=== PATIENT | male | born 1950 | race Caucasian/White ===

== ENCOUNTER 2017-07-30 14:58 | Inpatient (IN) | payer MEDICARE, OTHER ==
[2017-07-30 14:58] VITALS: BMI 23.3
[2017-07-30] MEDS ORDERED: Albuterol-Ipratrop 3 mg / 0.5 (3 ml) UD INH STA (17:47)
[2017-07-30] MEDS ORDERED: Albuterol-Ipratrop 3 mg / 0.5 (3 ml) UD ONE (17:52)
[2017-07-30 17:54] LABS: BASO # 0.1 K/uL (0.0-0.2); BASO % 0.4 % (0.0-2.0); EOS % 0.1 % (0.0-4.0); LYMPH # 1.4 K/uL (1.0-4.3); MEAN CORPUSCULAR HEMOGLOBIN 27.4 pg (27.0-31.0); MEAN CORPUSCULAR HGB CONC 33.2 g/dL (33.0-37.0); MEAN PLATELET VOLUME 11.7 fL (7.2-11.7); MONO # 1.6 K/uL (0.0-0.8); MONO % 8.2 % (0.0-10.0); NEUT # 16.7 K/uL (1.8-7.0); NEUT % 84.3 % (50.0-75.0); PLATELET COUNT 149 K/uL (130-400); RBC 3.34 Mil/uL (4.40-5.90); RED CELL DISTRIBUTION WIDTH 14.2 % (11.5-14.5)
--- NOTE | 2017-07-30 17:55 | C.PDOC ---
History Of Present Illness 66 y/o male with PMHx of HTN, DM and HLD presents to ED with complaints of cough for 2 weeks and sob for 2 days. Patient also complaints of testicular pain and tenderness. Patient reports he saw PMD who advised he come to ED for evaluation. Patient is speaking in full sentences and denies fever, chills, nausea, vomiting, dysuria or any other complaints at this time. Time Seen by Provider: 07/30/17 17:07 Chief Complaint (Nursing): Shortness Of Breath History Per: Patient History/Exam Limitations: no limitations Onset/Duration Of Symptoms: Days Current Symptoms Are (Timing): Still Present Past Medical History Reviewed: Historical Data, Nursing Documentation, Vital Signs Vital Signs: Last Vital Signs Temp 100.4 F H 07/31/17 15:18 Pulse 81 07/31/17 15:30 Resp 20 07/31/17 15:18 BP 158/59 H 07/31/17 15:18 Pulse Ox 100 07/31/17 17:20 - Medical History PMH: Fractures (RIGHT ARM CHILDHOOD), HTN, Hypercholesterolemia, Peripheral Edema, Chronic Kidney Disease (BORDERLINE) Surgical History: CABG, Coronary Stent (2003), Endoscopy - [facility] Procedures ANGIOPLASTY OF OTHER NON-CORONARY VESSEL(S) (06/09/13) CONTRAST AORTOGRAM (09/10/14) CONTRAST ARTERIOGRAM-LEG (09/10/14) HETEROGRAFT TO SKIN (05/23/07) LOC EXC BONE LESION NEC (05/23/07) PROCEDURE ON SINGLE VESSEL (06/09/13) PROCEDURE ON VESSEL BIFURCATION (06/09/13) Family History: States: No Known Family Hx - Social History Hx Alcohol Use: No Hx Substance Use: No - Immunization History Hx Tetanus Toxoid Vaccination: No Hx Influenza Vaccination: Yes Hx Pneumococcal Vaccination: Yes Review Of Systems Constitutional: Negative for: Fever, Chills Cardiovascular: Negative for: Chest Pain Respiratory: Positive for: Cough, Shortness of Breath Gastrointestinal: Negative for: Nausea, Vomiting Genitourinary: Positive for: Other (Testicular pain). Negative for: Dysuria, Hematuria Skin: Negative for: Rash Neurological: Negative for: Weakness, Numbness Physical Exam - Physical Exam Appears: Non-toxic, No Acute Distress Skin: Normal Color, Warm, Dry, No Rash Head: Atraumatic, Normacephalic Oral Mucosa: Moist Throat: Normal, No Erythema, No Exudate Neck: Supple Cardiovascular: Rhythm Regular Respiratory: Decreased Breath Sounds, No Rales, No Rhonchi, Wheezing (Mild scattered bilaterally) Gastrointestinal/Abdominal: Soft, No Tenderness, No Guarding, No Rebound Extremity: Normal ROM, Capillary Refill (<2 seconds) Neurological/Psych: Oriented x3 ED Course And Treatment - Laboratory Results Result Diagrams: 07/30/17 17:47 07/30/17 17:47 O2 Sat by Pulse Oximetry: 100 (RA) Pulse Ox Interpretation: Normal Medical Decision Making Medical Decision Making: r/o chf, pneumonia, torsion/epididymtitis, -labs imaging penidng Progress: Discussed with Dr fritz who stated patient not candidate for ICU admission dr gonzalez, bedside on itial arrival. requests admission Disposition - Disposition Disposition: HOSPITALIZED Disposition Time: 07:00 Condition: FAIR - Clinical Impression Clinical Impression: CHF (congestive heart failure), Hyponatremia, Epididymitis - Scribe Statement The provider has reviewed the documentation as recorded by the Thoribgalen Garcia All medical record entries made by the Thoribgalen were at my direction and personally dictated by me. I have reviewed the chart and agree that the record accurately reflects my personal performance of the history, physical exam, medical decision making, and the department course for this patient. I have also personally directed, reviewed, and agree with the discharge instructions and disposition. Decision To Admit - Pt Status Changed To: Hospital Disposition Of: Inpatient - Admit Certification Admit to Inpatient:: After my assessment, the patient will require hospitalization for at least two midnights. This is because of the severity of symptoms shown, intensity of services needed, and/or the medical risk in this patient being treated as an outpatient. - InPatient: Physician Admission Certification: I certify that this patient requires 2 or more midnights of care for the following reason:: pt with hyponatremia, needs iv diuresis, and lasix. - . Bed Request Type: Telemetry Admitting Physician: Jose Gonzalez Patient Diagnosis: CHF (congestive heart failure), Hyponatremia, Epididymitis
[2017-07-30 17:57] LABS: HEMOGLOBIN 9.2 g/dL (12.0-18.0); MEAN CELL VOLUME 82.7 fL (80.0-94.0); WHITE BLOOD COUNT 19.8 K/uL (4.8-10.8)
[2017-07-30 18:04] LABS: INR 1.3; PROTHROMBIN TIME 14.2 SECONDS (9.7-12.2)
[2017-07-30] MEDS ORDERED: Piperacillin/Tazobact 3.375 gm 100 ML IVPB STA (18:06)
[2017-07-30 18:11] LABS: ALBUMIN 3.4 g/dL (3.5-5.0); CALCIUM 7.9 mg/dl (8.6-10.4)
[2017-07-30 18:16] LABS: LYMPHOCYTE 7 % (20-40); TOTAL CELLS COUNTED 100
[2017-07-30 18:17] LABS: ANISOCYTOSIS SLIGHT; HYPOCHROMIC SLIGHT; MONOCYTE 11 % (0-10); NEUTROPHIL 82 % (50-75); PLATELET ESTIMATE NORMAL (NORMAL); POIKILOCYTOSIS SLIGHT; TROPONIN I 0.064 ng/mL (0.00-0.120)
[2017-07-30 18:18] LABS: LARGE PLATELETS PRESENT
--- NOTE | 2017-07-30 18:39 | RAD ---
EXAM: XR Chest, 1 View EXAM DATE/TIME: Exam ordered 07/30/2017 5:24 PM CLINICAL HISTORY: 66 years old, male; Signs and symptoms; Hyperventilation and wheezing; Additional info: Chest pain, difficulty breathing TECHNIQUE: Frontal view of the chest. COMPARISON: CR - CHEST TWO VIEWS (PA/LAT) 2015-08-15 08:34 FINDINGS: Lungs: Coarse linear opacity at the right lung base suggests atelectasis. Thin linear opacities are noted in the left mid and lower lung field. Pleural space: There is blunting right lateral costophrenic angle. No pneumothorax. Heart: Unremarkable. No cardiomegaly. Mediastinum: Surgical clips project over the hilar structures bilaterally. Bones/joints: There has been a median sternotomy. Upper abdomen: There is elevation of the right hemidiaphragm. Other findings: External monitoring devices are present. IMPRESSION: Right basilar subsegmental atelectasis/pneumonitis with small right pleural effusion/pleural thickening. 2. Scarring in the left lung base
[2017-07-30] MEDS ORDERED: Vancomycin 1 GM in Sodium Chloride 0.9% 200 ML IVPB STA (18:48)
--- NOTE | 2017-07-30 19:10 | US ---
EXAM: US Scrotum EXAM DATE/TIME: Exam ordered 07/30/2017 5:24 PM CLINICAL HISTORY: 66 years old, male; Pain; Scrotum pain; Additional info: Testicular pain TECHNIQUE: Real-time ultrasound of the scrotum with color Doppler and image documentation. COMPARISON: No relevant prior studies available. FINDINGS: Right testicle: The right testicle measures 3.3 x 2 by 2.4 cm. The echotexture is homogeneous without evidence of mass. There is a small complex right hydrocele. No torsion. Left testicle: The left testicle measures 3 x 2.2 x 2.4 cm. No torsion. Epididymides: The epididymal head measures 1.3 x 1.2 x 0.6 cm.. There are 2 simple cysts. They measure 3 mm and 4 millimeters respectively in maximal diameter. The epididymal tail is enlarged measuring 1.9 x 2.3 x 2 cm and hypervascular. There is a septated cyst or 2 adjacent simple cysts within the tail of the epididymis with combined measurements of 1.1 x 0.6 x 0.9 cm. The left epididymal head measures 1.5 x 0.7 x 1.3 cm and contains a 3 mm simple cyst. The left epididymal tear measures 1.6 x 1.3 x 2 cm. it is hypervascular in nature. Scrotum: On the left there is a moderate complex hydrocele. Free fluid: There is a symmetric blood flow to both testes. No free fluid. The There are small varicoceles bilaterally IMPRESSION: 1. Bilateral epididymitis 2. Benign epididymal cysts or spermatoceles noted within the epididymal heads bilaterally. 3. Bilateral complex hydroceles, small on the right and moderate size on the left 4. There are small varicoceles bilaterally
[2017-07-30 22:44] LABS: URINE BACTERIA RARE (<OCC); URINE BILIRUBIN NEGATIVE (NEGATIVE); URINE BLOOD 1+ (NEGATIVE); URINE CLARITY Hazy (Clear); URINE COLOR Yellow (YELLOW); URINE GLUCOSE (UA) NORMAL (Normal); URINE LEUKOCYTE ESTERASE 3+ Leu/uL (Negative); URINE NITRATE NEGATIVE (NEGATIVE); URINE PROTEIN 1+ mg/dL (NEGATIVE); URINE UROBILINOGEN NORMAL mg/dL (0.2-1.0)
[2017-07-30] MEDS: Piperacill/Tazo 2.25gm in Dex 2.25 GM/50 ML BAG IVPB SCH (23:59)
[2017-07-31] MEDS: Albuterol-Ipratrop 3 mg / 0.5 (3 ml) UD INH SCH ×4 (02:20→20:14)
[2017-07-31] MEDS ORDERED: (Novolin R) Insulin Human Regular 100 units/ml vial SC ONE (02:39)
[2017-07-31] MEDS: Piperacill/Tazo 2.25gm in Dex 2.25 GM/50 ML BAG IVPB SCH ×3 (05:25→17:00)
[2017-07-31] MEDS ORDERED: (Novolog) Insulin Aspart, Recombinant 100 u/ml 10 ml vial SC SCH ×3 (07:30→10:00)
[2017-07-31] MEDS: (Novolog) Insulin Aspart, Recombinant 100 u/ml 10 ml vial SC SCH ×5 (09:19→22:16)
[2017-07-31] MEDS: Pantoprazole 40 mg EC Tab PO SCH (09:22)
[2017-07-31] MEDS: Vitamin B Complex/Vitamin C Tab PO SCH (09:22)
[2017-07-31] MEDS: Tolvaptan 15 MG TAB PO SCH (09:30)
[2017-07-31] MEDS ORDERED: Enoxaparin 40 mg Syringe SC SCH (10:00)
--- NOTE | 2017-07-31 19:25 | CP.PCM.HP ---
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 - HEENT Hx HEENT Problems: Yes Hx Blind: Yes (RIGHT EYE) Hx Deafness: Yes (RIGHT EAR) - RENAL Hx Chronic Kidney Disease: Yes (BORDERLINE) - ENDOCRINE/METABOLIC Hx Diabetes Mellitus Type 2: Yes - HEMATOLOGICAL/ONCOLOGICAL Hx Blood Disorders: No Hx Blood Transfusions: (MAYBE) - INTEGUMENTARY Hx Dermatological Problems: Yes Other/Comment: ULCERS LEFT FOOT HEEL - MUSCULOSKELETAL/RHEUMATOLOGICAL Hx Fractures: Yes (RIGHT ARM CHILDHOOD) - GASTROINTESTINAL Hx Gastrointestinal Disorders: Yes Hx Gastroesophageal Reflux: Yes - GENITOURINARY/GYNECOLOGICAL Hx Genitourinary Disorders: No - PSYCHIATRIC Hx Substance Use: No - SURGICAL HISTORY Hx Coronary Artery Bypass Graft: Yes Hx Coronary Stent: Yes (2003) - ANESTHESIA Hx Anesthesia: Yes Hx Anesthesia Reactions: No Hx Malignant Hyperthermia: No Meds Allergies/Adverse Reactions: Allergies Allergy/AdvReac Type Severity Reaction Status Date / Time No Known Allergies Allergy Verified 08/11/15 09:42 Physical Exam - Constitutional Appears: Well - Head Exam Head Exam: ATRAUMATIC, NORMAL INSPECTION, NORMOCEPHALIC - Eye Exam Eye Exam: EOMI, Normal appearance, PERRL Pupil Exam: NORMAL ACCOMODATION, PERRL - ENT Exam ENT Exam: Mucous Membranes Moist, Normal Exam - Neck Exam Neck exam: Positive for: Normal Inspection - Respiratory Exam Respiratory Exam: Decreased Breath Sounds - Cardiovascular Exam Cardiovascular Exam: REGULAR RHYTHM, +S1, +S2 - GI/Abdominal Exam GI & Abdominal Exam: Diminished Bowel Sounds, Soft - Rectal Exam Rectal Exam: Deferred Results - Vital Signs Recent Vital Signs: Last Vital Signs Temp 100.4 F H 07/31/17 15:18 Pulse 81 07/31/17 15:30 Resp 20 07/31/17 15:18 BP 158/59 H 07/31/17 15:18 Pulse Ox 100 07/31/17 17:55 - Labs Result Diagrams: 07/30/17 17:47 07/30/17 17:47 Labs: Laboratory Results - last 24 hr 07/30/17 07/30/17 07/30/17 19:48 20:56 22:31 POC Glucose (mg/dL) 280 H 310 H Serum Osmolality Urine Color Yellow Urine Clarity Hazy Urine pH 5.0 Ur Specific [place] 1.011 Urine Protein 1+ H Urine Glucose (UA) Normal Urine Ketones Negative Urine Blood 1+ H Urine Nitrate Negative Urine Bilirubin Negative Urine Urobilinogen Normal Ur Leukocyte Esterase 3+ H Urine WBC (Auto) 694 H Urine RBC (Auto) 12 H Urine Bacteria Rare 07/31/17 07/31/17 07/31/17 02:35 06:54 11:23 POC Glucose (mg/dL) 433 H* 353 H 351 H Serum Osmolality Urine Color Urine Clarity Urine pH Ur Specific [place] Urine Protein Urine Glucose (UA) Urine Ketones Urine Blood Urine Nitrate Urine Bilirubin Urine Urobilinogen Ur Leukocyte Esterase Urine WBC (Auto) Urine RBC (Auto) Urine Bacteria 07/31/17 07/31/17 11:41 16:35 POC Glucose (mg/dL) 314 H Serum Osmolality 309 H Urine Color Urine Clarity Urine pH Ur Specific [place] Urine Protein Urine Glucose (UA) Urine Ketones Urine Blood Urine Nitrate Urine Bilirubin Urine Urobilinogen Ur Leukocyte Esterase Urine WBC (Auto) Urine RBC (Auto) Urine Bacteria
[2017-07-31] MEDS: Insulin Detemir 100 units/ml Vial (Levemir) SC SCH (22:15)
[2017-08-01] MEDS: Piperacill/Tazo 2.25gm in Dex 2.25 GM/50 ML BAG IVPB SCH ×4 (00:10→17:27)
[2017-08-01] MEDS: Albuterol-Ipratrop 3 mg / 0.5 (3 ml) UD INH SCH ×4 (01:47→19:29)
[2017-08-01 07:30] LABS: BASO % 0.3 % (0.0-2.0); EOS % 0.3 % (0.0-4.0); HEMOGLOBIN 8.7 g/dL (12.0-18.0); LYMPH # 1.1 K/uL (1.0-4.3); LYMPH % 6.8 % (20.0-40.0); MEAN CELL VOLUME 82.4 fL (80.0-94.0); MEAN CORPUSCULAR HEMOGLOBIN 27.4 pg (27.0-31.0); MEAN CORPUSCULAR HGB CONC 33.2 g/dL (33.0-37.0); MEAN PLATELET VOLUME 11.6 fL (7.2-11.7); MONO # 1.2 K/uL (0.0-0.8); MONO % 7.5 % (0.0-10.0); NEUT # 13.3 K/uL (1.8-7.0); NEUT % 85.1 % (50.0-75.0); PLATELET COUNT 182 K/uL (130-400); RBC 3.17 Mil/uL (4.40-5.90); RED CELL DISTRIBUTION WIDTH 14.3 % (11.5-14.5); WHITE BLOOD COUNT 15.6 K/uL (4.8-10.8)
[2017-08-01 07:53] LABS: ALB/GLOB RATIO 0.9 (1.0-2.1); ALBUMIN 2.9 g/dL (3.5-5.0); CALCIUM 7.6 mg/dl (8.6-10.4)
[2017-08-01] MEDS: (Novolog) Insulin Aspart, Recombinant 100 u/ml 10 ml vial SC SCH ×4 (08:29→21:22)
[2017-08-01 08:46] LABS: ANISOCYTOSIS SLIGHT; HYPOCHROMIC SLIGHT; LYMPHOCYTE 8 % (20-40); MONOCYTE 7 % (0-10); NEUTROPHIL 85 % (50-75); PLATELET ESTIMATE NORMAL (NORMAL); POIKILOCYTOSIS SLIGHT; TOTAL CELLS COUNTED 100
[2017-08-01 08:47] LABS: LARGE PLATELETS PRESENT; OVALOCYTES SLIGHT; TARGET CELLS SLIGHT; TEARDROP CELLS SLIGHT
[2017-08-01] MEDS: Pantoprazole 40 mg EC Tab PO SCH (09:53)
[2017-08-01] MEDS: Vitamin B Complex/Vitamin C Tab PO SCH (09:54)
[2017-08-01] MEDS: Tolvaptan 15 MG TAB PO SCH (09:54)
[2017-08-01] MEDS ORDERED: Pneumococcal 23-Valent Vaccine IM ONE (10:00)
[2017-08-01 13:39] LABS: URINE 24 HOUR SODIUM 14.9 mmol/L (40-220)
[2017-08-01 17:21] LABS: CALCIUM 7.6 mg/dl (8.6-10.4)
--- NOTE | 2017-08-01 19:21 | CP.PCM.PN ---
Subjective - Date & Time of Evaluation Date of Evaluation: 08/01/17 Time of Evaluation: 12:20 - Subjective Subjective: clinically same Objective - Vital Signs/Intake and Output Vital Signs (last 24 hours): Temp Pulse Resp BP Pulse Ox 99.1 F 69 20 154/62 H 96 08/01/17 16:00 08/01/17 16:00 08/01/17 16:00 08/01/17 16:00 08/01/17 16:00 Intake and Output: 08/01/17 08/02/17 18:59 06:59 Intake Total 50 Balance 50 - Medications Medications: Current Medications Albuterol/Ipratropium (Duoneb 3 Mg/0.5 Mg (3 Ml) Ud) 3 ml INH RQ6 [facility] Last Admin: 08/01/17 13:44 Dose: 3 ml Amlodipine Besylate (Norvasc) 10 mg PO DAILY [facility] Last Admin: 08/01/17 09:54 Dose: 10 mg Carvedilol (Coreg) 6.25 mg PO BID [facility] Last Admin: 08/01/17 17:26 Dose: 6.25 mg Clopidogrel Bisulfate (Plavix) 75 mg PO DAILY [facility] Last Admin: 08/01/17 09:54 Dose: 75 mg Folic Acid (Folic Acid) 1 mg PO DAILY [facility] Last Admin: 08/01/17 09:54 Dose: 1 mg Heparin Sodium (Porcine) (Heparin) 5,000 units SC Q12 [facility] Last Admin: 08/01/17 10:11 Dose: 5,000 units Hydralazine HCl (Apresoline) 10 mg PO TID [facility] Last Admin: 08/01/17 17:25 Dose: 10 mg Hydroxyzine HCl (Atarax) 25 mg PO DAILY [facility] Last Admin: 08/01/17 09:54 Dose: 25 mg Piperacillin Sod/Tazobactam Sod (Zosyn 2.25 Gm Iv Premix) 2.25 gm in 50 mls @ 100 mls/hr IVPB Q6H [facility] Last Admin: 08/01/17 17:27 Dose: 100 mls/hr Insulin Aspart (Novolog) 0 unit SC ACHS [facility] PRN Reason: Protocol Last Admin: 08/01/17 17:26 Dose: 6 unit Insulin Detemir (Levemir) 35 unit SC HS [facility] Last Admin: 07/31/17 22:15 Dose: 35 unit Losartan Potassium (Cozaar) 25 mg PO DAILY [facility] Last Admin: 08/01/17 12:28 Dose: 25 mg Pantoprazole Sodium (Protonix Ec Tab) 40 mg PO DAILY [facility] Last Admin: 08/01/17 09:53 Dose: 40 mg Pregabalin (Lyrica) 50 mg PO BID [facility] Last Admin: 08/01/17 17:26 Dose: 50 mg Rosuvastatin Calcium (Crestor) 40 mg PO HS [facility] Last Admin: 07/31/17 22:17 Dose: 40 mg Tolvaptan (Samsca) 15 mg PO DAILY [facility] Last Admin: 08/01/17 09:54 Dose: 15 mg Vitamin B Complex/Vitamin C (Berocca) 1 tab PO DAILY [facility] Last Admin: 08/01/17 09:54 Dose: 1 tab - Labs Labs: 07/31/17 07:16 08/01/17 16:53 PT 14.2 SECONDS (9.7-12.2) H 07/30/17 17:47 INR 1.3 07/30/17 17:47 APTT 33 SECONDS (21-34) 07/30/17 17:47
[2017-08-01] MEDS: Insulin Detemir 100 units/ml Vial (Levemir) SC SCH (21:21)
[2017-08-02] MEDS: Piperacill/Tazo 2.25gm in Dex 2.25 GM/50 ML BAG IVPB SCH ×4 (00:03→18:52)
[2017-08-02] MEDS: Albuterol-Ipratrop 3 mg / 0.5 (3 ml) UD INH SCH ×4 (02:20→22:37)
--- NOTE | 2017-08-02 07:01 | CARD ---
APPROVED REPORT EKG Measurement Heart [id number] <Conclusion> Normal sinus rhythm Normal ECG
[2017-08-02 07:26] LABS: BASO % 0.3 % (0.0-2.0); EOS # 0.3 K/uL (0.0-0.7); EOS % 2.3 % (0.0-4.0); HEMOGLOBIN 9.3 g/dL (12.0-18.0); LYMPH # 1.5 K/uL (1.0-4.3); LYMPH % 9.8 % (20.0-40.0); MEAN CELL VOLUME 83.4 fL (80.0-94.0); MEAN CORPUSCULAR HEMOGLOBIN 28.1 pg (27.0-31.0); MEAN CORPUSCULAR HGB CONC 33.7 g/dL (33.0-37.0); MEAN PLATELET VOLUME 11.4 fL (7.2-11.7); MONO % 6.4 % (0.0-10.0); NEUT # 12.4 K/uL (1.8-7.0); NEUT % 81.2 % (50.0-75.0); PLATELET COUNT 234 K/uL (130-400); RBC 3.29 Mil/uL (4.40-5.90); RED CELL DISTRIBUTION WIDTH 14.3 % (11.5-14.5); WHITE BLOOD COUNT 15.2 K/uL (4.8-10.8)
[2017-08-02] MEDS: (Novolog) Insulin Aspart, Recombinant 100 u/ml 10 ml vial SC SCH ×4 (08:07→22:51)
[2017-08-02 08:34] LABS: CALCIUM 8.2 mg/dl (8.6-10.4)
[2017-08-02 08:55] LABS: EOSINOPHIL 3 % (0-4); LYMPHOCYTE 10 % (20-40); MONOCYTE 6 % (0-10); NEUTROPHIL 81 % (50-75); PLATELET ESTIMATE NORMAL (NORMAL); TOTAL CELLS COUNTED 100
[2017-08-02 08:56] LABS: ANISOCYTOSIS SLIGHT; HYPOCHROMIC SLIGHT; LARGE PLATELETS PRESENT; POIKILOCYTOSIS SLIGHT; POLYCHROMIC SLIGHT
[2017-08-02] MEDS: Vitamin B Complex/Vitamin C Tab PO SCH (09:19)
[2017-08-02] MEDS: Tolvaptan 15 MG TAB PO SCH (09:20)
[2017-08-02] MEDS: Pantoprazole 40 mg EC Tab PO SCH (09:20)
--- NOTE | 2017-08-02 14:09 | CP.PCM.CON ---
<Marissa Barron - Last Filed: 08/02/17 14:05> History of Present Illness - History of Present Illness History of Present Illness: 66 year old male patient with PMHx of HTN, DM and HLD was seen at bedside this morning with attending Dr. Moralez after request for podiatry consultation concerning Chronic Left heel decubitus ulceration. Patient is well known to Dr. Moralez. Patient states that he had this ulceration for a few years and it is not acute. Patient admits to mild pain on palpation to Left heel upon palpation but no pain when resting. Patient was advised to wear multipodus boots at all time in bed. 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 - HEENT Hx HEENT Problems: Yes Hx Blind: Yes (RIGHT EYE) Hx Deafness: Yes (RIGHT EAR) - RENAL Hx Chronic Kidney Disease: Yes (BORDERLINE) - ENDOCRINE/METABOLIC Hx Diabetes Mellitus Type 2: Yes - HEMATOLOGICAL/ONCOLOGICAL Hx Blood Disorders: No Hx Blood Transfusions: (MAYBE) - INTEGUMENTARY Hx Dermatological Problems: Yes Other/Comment: ULCERS LEFT FOOT HEEL - MUSCULOSKELETAL/RHEUMATOLOGICAL Hx Fractures: Yes (RIGHT ARM CHILDHOOD) - GASTROINTESTINAL Hx Gastrointestinal Disorders: Yes Hx Gastroesophageal Reflux: Yes - GENITOURINARY/GYNECOLOGICAL Hx Genitourinary Disorders: No - PSYCHIATRIC Hx Substance Use: No - SURGICAL HISTORY Hx Coronary Artery Bypass Graft: Yes Hx Coronary Stent: Yes (2003) - ANESTHESIA Hx Anesthesia: Yes Hx Anesthesia Reactions: No Hx Malignant Hyperthermia: No Meds Allergies/Adverse Reactions: Allergies Allergy/AdvReac Type Severity Reaction Status Date / Time No Known Allergies Allergy Verified 08/11/15 09:42 - Medications Medications: Current Medications Albuterol/Ipratropium (Duoneb 3 Mg/0.5 Mg (3 Ml) Ud) 3 ml INH RQ6 [facility] Last Admin: 08/02/17 13:06 Dose: 3 ml Amlodipine Besylate (Norvasc) 10 mg PO DAILY [facility] Last Admin: 08/02/17 09:20 Dose: 10 mg Carvedilol (Coreg) 6.25 mg PO BID [facility] Last Admin: 08/02/17 09:20 Dose: 6.25 mg Clopidogrel Bisulfate (Plavix) 75 mg PO DAILY [facility] Last Admin: 08/02/17 09:19 Dose: 75 mg Folic Acid (Folic Acid) 1 mg PO DAILY [facility] Last Admin: 08/02/17 09:20 Dose: 1 mg Heparin Sodium (Porcine) (Heparin) 5,000 units SC Q12 [facility] Last Admin: 08/02/17 09:21 Dose: 5,000 units Hydralazine HCl (Apresoline) 10 mg PO TID [facility] Last Admin: 08/02/17 13:49 Dose: 10 mg Hydroxyzine HCl (Atarax) 25 mg PO DAILY [facility] Last Admin: 08/02/17 09:21 Dose: 25 mg Piperacillin Sod/Tazobactam Sod (Zosyn 2.25 Gm Iv Premix) 2.25 gm in 50 mls @ 100 mls/hr IVPB Q6H [facility] Last Admin: 08/02/17 12:34 Dose: 100 mls/hr Insulin Aspart (Novolog) 0 unit SC [facility] PRN Reason: Protocol Last Admin: 08/02/17 12:06 Dose: 2 unit Insulin Detemir (Levemir) 35 unit SC HS [facility] Last Admin: 08/01/17 21:21 Dose: 35 unit Losartan Potassium (Cozaar) 25 mg PO DAILY [facility] Last Admin: 08/02/17 09:20 Dose: 25 mg Pantoprazole Sodium (Protonix Ec Tab) 40 mg PO DAILY [facility] Last Admin: 08/02/17 09:20 Dose: 40 mg Pregabalin (Lyrica) 50 mg PO BID [facility] Last Admin: 08/02/17 09:20 Dose: 50 mg Rosuvastatin Calcium (Crestor) 40 mg PO HS [facility] Last Admin: 08/01/17 21:21 Dose: 40 mg Tolvaptan (Samsca) 15 mg PO DAILY [facility] Last Admin: 08/02/17 09:20 Dose: 15 mg Vitamin B Complex/Vitamin C (Berocca) 1 tab PO DAILY [facility] Last Admin: 08/02/17 09:19 Dose: 1 tab Physical Exam - Constitutional Appears: Well, Non-toxic, No Acute Distress - Head Exam Head Exam: ATRAUMATIC - Extremities Exam Additional comments: Left lower extremity exam (RIGHT BKA) DERM: No open wound is noted. Pre-ulcerative lesion noted to Left heel consistent with decubitus ulceration noted measuring 4cm x 4cm. No drainage is noted. No mal-odor noted. No PTB, No sign of acute infection noted VASC: Non-palpable DP and PT noted. [employer] less than 3 seconds to all digits ORTHO: Mild pain induced upon palpation to Left heel. Decreased Active / Passive ROM to joints distal to ankle NEURO: Gross sensation intact; [place] Jessica Monofilament multifocal exam plantarly - Neurological Exam Neurological exam: Alert, Oriented x3 - Psychiatric Exam Psychiatric exam: Normal Affect, Normal Mood - Skin Skin Exam: Normal Color, Warm Results - Vital Signs Recent Vital Signs: Last Vital Signs Temp 98.4 F 08/02/17 07:00 Pulse 73 08/02/17 07:00 Resp 20 08/02/17 07:00 BP 145/56 L 08/02/17 07:00 Pulse Ox 100 08/02/17 07:00 - Labs Result Diagrams: 08/02/17 07:13 08/02/17 07:13 Labs: Laboratory Results - last 24 hr 08/01/17 08/01/17 08/01/17 13:04 16:53 16:56 WBC RBC Hgb Hct MCV MCH MCHC RDW Plt Count MPV Neut % (Auto) Lymph % (Auto) Leon % (Auto) Eos % (Auto) Baso % (Auto) Neut # Lymph # Leon # Eos # Baso # Neutrophils % (Manual) Lymphocytes % (Manual) Monocytes % (Manual) Eosinophils % (Manual) Platelet Estimate Large Platelets Polychromasia Hypochromasia (manual) Poikilocytosis (manual Anisocytosis (manual) Sodium 123 L Potassium 4.7 Chloride 96 L Carbon Dioxide 19 L Anion Gap 13 BUN 85 H Creatinine 2.7 H Est GFR ( Amer) 29 Est GFR (Non-Af Amer) 24 POC Glucose (mg/dL) 271 H Random Glucose 245 H Hemoglobin A1c Calcium 7.6 L Urine Osmolality 347 Ur Sodium 24 Hour 14.9 L 08/01/17 08/02/17 08/02/17 21:03 02:33 06:42 WBC RBC Hgb Hct MCV MCH MCHC RDW Plt Count MPV Neut % (Auto) Lymph % (Auto) Leon % (Auto) Eos % (Auto) Baso % (Auto) Neut # Lymph # Leon # Eos # Baso # Neutrophils % (Manual) Lymphocytes % (Manual) Monocytes % (Manual) Eosinophils % (Manual) Platelet Estimate Large Platelets Polychromasia Hypochromasia (manual) Poikilocytosis (manual Anisocytosis (manual) Sodium Potassium Chloride Carbon Dioxide Anion Gap BUN Creatinine Est GFR ( Amer) Est GFR (Non-Af Amer) POC Glucose (mg/dL) 309 H 283 H 169 H Random Glucose Hemoglobin A1c Calcium Urine Osmolality Ur Sodium 24 Hour 08/02/17 08/02/17 08/02/17 07:13 07:13 07:13 WBC 15.2 H RBC 3.29 L Hgb 9.3 L Hct 27.4 L MCV 83.4 MCH 28.1 MCHC 33.7 RDW 14.3 Plt Count 234 MPV 11.4 Neut % (Auto) 81.2 H Lymph % (Auto) 9.8 L Leon % (Auto) 6.4 Eos % (Auto) 2.3 Baso % (Auto) 0.3 Neut # 12.4 H Lymph # 1.5 Leon # 1.0 H Eos # 0.3 Baso # 0.0 Neutrophils % (Manual) 81 H Lymphocytes % (Manual) 10 L Monocytes % (Manual) 6 Eosinophils % (Manual) 3 Platelet Estimate Normal Large Platelets Present Polychromasia Slight Hypochromasia (manual) Slight Poikilocytosis (manual Slight Anisocytosis (manual) Slight Sodium 132 Potassium 4.5 Chloride 100 Carbon Dioxide 18 L Anion Gap 18 BUN 80 H Creatinine 2.8 H Est GFR ( Amer) 27 Est GFR (Non-Af Amer) 23 POC Glucose (mg/dL) Random Glucose 159 H Hemoglobin A1c 10.7 H Calcium 8.2 L Urine Osmolality Ur Sodium 24 Hour 08/02/17 11:35 WBC RBC Hgb Hct MCV MCH MCHC RDW Plt Count MPV Neut % (Auto) Lymph % (Auto) Leon % (Auto) Eos % (Auto) Baso % (Auto) Neut # Lymph # Leon # Eos # Baso # Neutrophils % (Manual) Lymphocytes % (Manual) Monocytes % (Manual) Eosinophils % (Manual) Platelet Estimate Large Platelets Polychromasia Hypochromasia (manual) Poikilocytosis (manual Anisocytosis (manual) Sodium Potassium Chloride Carbon Dioxide Anion Gap BUN Creatinine Est GFR ( Amer) Est GFR (Non-Af Amer) POC Glucose (mg/dL) 186 H Random Glucose Hemoglobin A1c Calcium Urine Osmolality Ur Sodium 24 Hour Assessment & Plan - Assessment and Plan (Free Text) Assessment: 66 yo male patient presents with Left heel decubitus ulceration Plan: Patient was seen, evaluated by bedside with attending Dr. Moralez labs and vitals reviewed; afebrile Multipodus boots ordered Left foot to be dressed with ABD, cling, then multipodus boots Podiatry will continue to follow inhouse <Joel Moralez - Last Filed: 08/05/17 10:09> Meds - Medications Medications: Current Medications Amlodipine Besylate (Norvasc) 10 mg PO DAILY [facility] Last Admin: 08/04/17 10:08 Dose: 10 mg Carvedilol (Coreg) 6.25 mg PO BID [facility] Last Admin: 08/04/17 22:49 Dose: 6.25 mg Clopidogrel Bisulfate (Plavix) 75 mg PO DAILY [facility] Last Admin: 08/04/17 10:08 Dose: 75 mg Folic Acid (Folic Acid) 1 mg PO DAILY [facility] Last Admin: 08/04/17 10:08 Dose: 1 mg Heparin Sodium (Porcine) (Heparin) 5,000 units SC Q12 [facility] Last Admin: 08/04/17 22:26 Dose: 5,000 units Hydralazine HCl (Apresoline) 10 mg PO TID [facility] Last Admin: 08/04/17 17:47 Dose: 10 mg Hydroxyzine HCl (Atarax) 25 mg PO DAILY [facility] Last Admin: 08/04/17 10:08 Dose: 25 mg Piperacillin Sod/Tazobactam Sod (Zosyn 2.25 Gm Iv Premix) 2.25 gm in 50 mls @ 100 mls/hr IVPB Q6H [facility] Last Admin: 08/05/17 05:08 Dose: 100 mls/hr Insulin Aspart (Novolog) 0 unit SC ACHS [facility] PRN Reason: Protocol Last Admin: 08/05/17 08:44 Dose: 4 unit Insulin Detemir (Levemir) 35 unit SC HS [facility] Last Admin: 08/04/17 22:28 Dose: 35 unit Losartan Potassium (Cozaar) 25 mg PO DAILY [facility] Last Admin: 08/04/17 10:11 Dose: 25 mg Pantoprazole Sodium (Protonix Ec Tab) 40 mg PO DAILY [facility] Last Admin: 08/04/17 10:08 Dose: 40 mg Pregabalin (Lyrica) 50 mg PO BID [facility] Last Admin: 08/04/17 17:48 Dose: 50 mg Rosuvastatin Calcium (Crestor) 40 mg PO [facility] Last Admin: 08/04/17 22:24 Dose: 40 mg Vitamin B Complex/Vitamin C (Berocca) 1 tab PO DAILY [facility] Last Admin: 08/04/17 10:08 Dose: 1 tab Results - Vital Signs Recent Vital Signs: Last Vital Signs Temp 97.4 F L 08/05/17 09:07 Pulse 61 08/05/17 09:07 Resp 20 08/05/17 09:07 BP 149/65 08/05/17 09:07 Pulse Ox 100 08/05/17 09:07 - Labs Result Diagrams: 08/04/17 08:39 08/04/17 08:37 Labs: Laboratory Results - last 24 hr 08/04/17 08/04/17 08/04/17 12:26 16:56 22:13 POC Glucose (mg/dL) 240 H 256 H 258 H 08/05/17 06:27 POC Glucose (mg/dL) 221 H Attending/Attestation - Attestation I have personally seen and examined this patient.: Yes I have fully participated in the care of the patient.: Yes I have reviewed all pertinent clinical information: Yes Notes (Text): 08/05/17 10:09 Pt seen with resident for left heel stage 1 ulcer.
--- NOTE | 2017-08-02 16:27 | CP.PCM.PN ---
Subjective - Date & Time of Evaluation Date of Evaluation: 08/02/17 Time of Evaluation: 12:20 - Subjective Subjective: clinically same Objective - Vital Signs/Intake and Output Vital Signs (last 24 hours): Temp Pulse Resp BP Pulse Ox 98.4 F 73 20 145/56 L 100 08/02/17 07:00 08/02/17 07:00 08/02/17 07:00 08/02/17 07:00 08/02/17 07:00 Intake and Output: 08/02/17 08/02/17 06:59 18:59 Intake Total 220 Output Total 200 Balance 20 - Medications Medications: Current Medications Albuterol/Ipratropium (Duoneb 3 Mg/0.5 Mg (3 Ml) Ud) 3 ml INH RQ6 [facility] Last Admin: 08/02/17 13:06 Dose: 3 ml Amlodipine Besylate (Norvasc) 10 mg PO DAILY [facility] Last Admin: 08/02/17 09:20 Dose: 10 mg Carvedilol (Coreg) 6.25 mg PO BID [facility] Last Admin: 08/02/17 09:20 Dose: 6.25 mg Clopidogrel Bisulfate (Plavix) 75 mg PO DAILY [facility] Last Admin: 08/02/17 09:19 Dose: 75 mg Folic Acid (Folic Acid) 1 mg PO DAILY [facility] Last Admin: 08/02/17 09:20 Dose: 1 mg Heparin Sodium (Porcine) (Heparin) 5,000 units SC Q12 [facility] Last Admin: 08/02/17 09:21 Dose: 5,000 units Hydralazine HCl (Apresoline) 10 mg PO TID [facility] Last Admin: 08/02/17 13:49 Dose: 10 mg Hydroxyzine HCl (Atarax) 25 mg PO DAILY [facility] Last Admin: 08/02/17 09:21 Dose: 25 mg Piperacillin Sod/Tazobactam Sod (Zosyn 2.25 Gm Iv Premix) 2.25 gm in 50 mls @ 100 mls/hr IVPB Q6H [facility] Last Admin: 08/02/17 12:34 Dose: 100 mls/hr Insulin Aspart (Novolog) 0 unit SC ACHS [facility] PRN Reason: Protocol Last Admin: 08/02/17 12:06 Dose: 2 unit Insulin Detemir (Levemir) 35 unit SC HS [facility] Last Admin: 08/01/17 21:21 Dose: 35 unit Losartan Potassium (Cozaar) 25 mg PO DAILY [facility] Last Admin: 08/02/17 09:20 Dose: 25 mg Pantoprazole Sodium (Protonix Ec Tab) 40 mg PO DAILY [facility] Last Admin: 08/02/17 09:20 Dose: 40 mg Pregabalin (Lyrica) 50 mg PO BID [facility] Last Admin: 08/02/17 09:20 Dose: 50 mg Rosuvastatin Calcium (Crestor) 40 mg PO HS [facility] Last Admin: 08/01/17 21:21 Dose: 40 mg Tolvaptan (Samsca) 15 mg PO DAILY [facility] Last Admin: 08/02/17 09:20 Dose: 15 mg Vitamin B Complex/Vitamin C (Berocca) 1 tab PO DAILY [facility] Last Admin: 08/02/17 09:19 Dose: 1 tab - Labs Labs: 08/02/17 07:13 08/02/17 07:13 PT 14.2 SECONDS (9.7-12.2) H 07/30/17 17:47 INR 1.3 07/30/17 17:47 APTT 33 SECONDS (21-34) 07/30/17 17:47
[2017-08-02] MEDS: Insulin Detemir 100 units/ml Vial (Levemir) SC SCH (22:50)
[2017-08-03 01:36] VITALS: RESP 20
[2017-08-03] MEDS: Piperacill/Tazo 2.25gm in Dex 2.25 GM/50 ML BAG IVPB SCH ×5 (06:30→23:07)
[2017-08-03] MEDS: Albuterol-Ipratrop 3 mg / 0.5 (3 ml) UD INH SCH ×3 (07:40→19:35)
[2017-08-03] MEDS: (Novolog) Insulin Aspart, Recombinant 100 u/ml 10 ml vial SC SCH ×4 (08:16→21:21)
[2017-08-03] MEDS ORDERED: Tolvaptan 15 MG TAB PO SCH (10:00)
[2017-08-03] MEDS: Pantoprazole 40 mg EC Tab PO SCH (10:29)
[2017-08-03] MEDS: Vitamin B Complex/Vitamin C Tab PO SCH (10:29)
--- NOTE | 2017-08-03 13:18 | CP.PCM.PN ---
<Janis Sibley - Last Filed: 08/03/17 20:27> Subjective - Date & Time of Evaluation Date of Evaluation: 08/03/17 Time of Evaluation: 11:50 - Subjective Subjective: 66 year old diabetic male seen at bedside this morning for left heel decubitus ulceration. Patient denies any acute events overnight and denies any pain in the left foot. Multipodus boot not on at time of visit. Dressing is clean/dry/ intact. Objective - Vital Signs/Intake and Output Vital Signs (last 24 hours): Temp Pulse Resp BP Pulse Ox 98.8 F 68 20 136/65 96 08/03/17 09:26 08/03/17 09:26 08/03/17 09:26 08/03/17 09:26 08/03/17 09:26 Intake and Output: 08/03/17 08/03/17 06:59 18:59 Intake Total 300 100 Output Total 650 Balance -350 100 - Medications Medications: Current Medications Albuterol/Ipratropium (Duoneb 3 Mg/0.5 Mg (3 Ml) Ud) 3 ml INH RQ6 [facility] Last Admin: 08/02/17 22:37 Dose: Not Given Amlodipine Besylate (Norvasc) 10 mg PO DAILY [facility] Last Admin: 08/03/17 10:29 Dose: 10 mg Carvedilol (Coreg) 6.25 mg PO BID [facility] Last Admin: 08/03/17 10:29 Dose: 6.25 mg Clopidogrel Bisulfate (Plavix) 75 mg PO DAILY [facility] Last Admin: 08/03/17 10:29 Dose: 75 mg Folic Acid (Folic Acid) 1 mg PO DAILY [facility] Last Admin: 08/03/17 10:29 Dose: 1 mg Heparin Sodium (Porcine) (Heparin) 5,000 units SC Q12 [facility] Last Admin: 08/03/17 10:30 Dose: 5,000 units Hydralazine HCl (Apresoline) 10 mg PO TID [facility] Last Admin: 08/03/17 10:29 Dose: 10 mg Hydroxyzine HCl (Atarax) 25 mg PO DAILY [facility] Last Admin: 08/03/17 10:29 Dose: 25 mg Piperacillin Sod/Tazobactam Sod (Zosyn 2.25 Gm Iv Premix) 2.25 gm in 50 mls @ 100 mls/hr IVPB Q6H [facility] Last Admin: 08/03/17 06:30 Dose: 100 mls/hr Insulin Aspart (Novolog) 0 unit SC ACHS [facility] PRN Reason: Protocol Last Admin: 08/03/17 12:53 Dose: 4 unit Insulin Detemir (Levemir) 35 unit SC [facility] Last Admin: 08/02/17 22:50 Dose: 35 unit Losartan Potassium (Cozaar) 25 mg PO DAILY [facility] Last Admin: 08/03/17 10:29 Dose: 25 mg Pantoprazole Sodium (Protonix Ec Tab) 40 mg PO DAILY [facility] Last Admin: 08/03/17 10:29 Dose: 40 mg Pregabalin (Lyrica) 50 mg PO BID [facility] Last Admin: 08/03/17 10:29 Dose: 50 mg Rosuvastatin Calcium (Crestor) 40 mg PO [facility] Last Admin: 08/02/17 22:49 Dose: 40 mg Vitamin B Complex/Vitamin C (Berocca) 1 tab PO DAILY [facility] Last Admin: 08/03/17 10:29 Dose: 1 tab - Labs Labs: 08/02/17 07:13 08/02/17 07:13 PT 14.2 SECONDS (9.7-12.2) H 07/30/17 17:47 INR 1.3 07/30/17 17:47 APTT 33 SECONDS (21-34) 07/30/17 17:47 - Constitutional Appears: Well, Non-toxic, No Acute Distress - Extremities Exam Additional comments: Left lower extremity exam (RIGHT BKA) Vasc: Non-palpable DP and PT noted. CFT < 3 seconds to all digits Derm: No open wound is noted. Pre-ulcerative lesion noted to left heel consistent with decubitus ulceration noted measuring 4cm x 4cm. No drainage is noted. Skin is stable and non fissured or sloughed. No malodor noted. No PTB, No sign of acute infection noted Ortho: No pain noted on palpation or application of pressure to decubitus ulcer. Decreased active/passive ROM to joints distal to ankle Neuro: Gross sensation intact - Neurological Exam Neurological Exam: Alert, Awake, Oriented x3 Assessment and Plan - Assessment and Plan (Free Text) Assessment: 66 yo male diabetic patient with left heel decubitus ulceration Plan: Patient was seen, evaluated by bedside Discussed plan with attending Dr. Moralez Labs and vitals reviewed; afebrile Multipodus boot to remain on at all times in bed to left foot Left foot dressed with ABD, DSD, multipodus boot Podiatry will continue to follow patient while in house <Joel Moralez - Last Filed: 08/05/17 10:10> Objective - Vital Signs/Intake and Output Vital Signs (last 24 hours): Temp Pulse Resp BP Pulse Ox 97.4 F L 61 20 149/65 100 08/05/17 09:07 08/05/17 09:07 08/05/17 09:07 08/05/17 09:07 08/05/17 09:07 Intake and Output: 08/05/17 08/05/17 06:59 18:59 Intake Total 530 Output Total 400 Balance 130 - Medications Medications: Current Medications Amlodipine Besylate (Norvasc) 10 mg PO DAILY [facility] Last Admin: 08/04/17 10:08 Dose: 10 mg Carvedilol (Coreg) 6.25 mg PO BID [facility] Last Admin: 08/04/17 22:49 Dose: 6.25 mg Clopidogrel Bisulfate (Plavix) 75 mg PO DAILY [facility] Last Admin: 08/04/17 10:08 Dose: 75 mg Folic Acid (Folic Acid) 1 mg PO DAILY [facility] Last Admin: 08/04/17 10:08 Dose: 1 mg Heparin Sodium (Porcine) (Heparin) 5,000 units SC Q12 [facility] Last Admin: 08/04/17 22:26 Dose: 5,000 units Hydralazine HCl (Apresoline) 10 mg PO TID [facility] Last Admin: 08/04/17 17:47 Dose: 10 mg Hydroxyzine HCl (Atarax) 25 mg PO DAILY [facility] Last Admin: 08/04/17 10:08 Dose: 25 mg Piperacillin Sod/Tazobactam Sod (Zosyn 2.25 Gm Iv Premix) 2.25 gm in 50 mls @ 100 mls/hr IVPB Q6H [facility] Last Admin: 08/05/17 05:08 Dose: 100 mls/hr Insulin Aspart (Novolog) 0 unit SC ACHS [facility] PRN Reason: Protocol Last Admin: 08/05/17 08:44 Dose: 4 unit Insulin Detemir (Levemir) 35 unit SC HS [facility] Last Admin: 08/04/17 22:28 Dose: 35 unit Losartan Potassium (Cozaar) 25 mg PO DAILY [facility] Last Admin: 08/04/17 10:11 Dose: 25 mg Pantoprazole Sodium (Protonix Ec Tab) 40 mg PO DAILY [facility] Last Admin: 08/04/17 10:08 Dose: 40 mg Pregabalin (Lyrica) 50 mg PO BID [facility] Last Admin: 08/04/17 17:48 Dose: 50 mg Rosuvastatin Calcium (Crestor) 40 mg PO HS [facility] Last Admin: 08/04/17 22:24 Dose: 40 mg Vitamin B Complex/Vitamin C (Berocca) 1 tab PO DAILY [facility] Last Admin: 08/04/17 10:08 Dose: 1 tab - Labs Labs: 08/04/17 08:39 08/04/17 08:37 PT 14.2 SECONDS (9.7-12.2) H 07/30/17 17:47 INR 1.3 07/30/17 17:47 APTT 33 SECONDS (21-34) 07/30/17 17:47 Attending/Attestation - Attestation I have fully participated in the care of the patient.: Yes I have reviewed all pertinent clinical information, including history, physical exam and plan: Yes Notes (Text): 08/05/17 10:10 Stage 1 ulcer
--- NOTE | 2017-08-03 15:58 | CP.PCM.PN ---
Subjective - Date & Time of Evaluation Date of Evaluation: 08/03/17 Time of Evaluation: 12:00 - Subjective Subjective: clinically same Objective - Vital Signs/Intake and Output Vital Signs (last 24 hours): Temp Pulse Resp BP Pulse Ox 98.8 F 68 20 136/65 96 08/03/17 09:26 08/03/17 09:26 08/03/17 09:26 08/03/17 09:26 08/03/17 09:26 Intake and Output: 08/03/17 08/03/17 06:59 18:59 Intake Total 300 100 Output Total 650 Balance -350 100 - Medications Medications: Current Medications Albuterol/Ipratropium (Duoneb 3 Mg/0.5 Mg (3 Ml) Ud) 3 ml INH RQ6 [facility] Last Admin: 08/03/17 14:09 Dose: 3 ml Amlodipine Besylate (Norvasc) 10 mg PO DAILY [facility] Last Admin: 08/03/17 10:29 Dose: 10 mg Carvedilol (Coreg) 6.25 mg PO BID [facility] Last Admin: 08/03/17 10:29 Dose: 6.25 mg Clopidogrel Bisulfate (Plavix) 75 mg PO DAILY [facility] Last Admin: 08/03/17 10:29 Dose: 75 mg Folic Acid (Folic Acid) 1 mg PO DAILY [facility] Last Admin: 08/03/17 10:29 Dose: 1 mg Heparin Sodium (Porcine) (Heparin) 5,000 units SC Q12 [facility] Last Admin: 08/03/17 10:30 Dose: 5,000 units Hydralazine HCl (Apresoline) 10 mg PO TID [facility] Last Admin: 08/03/17 14:29 Dose: 10 mg Hydroxyzine HCl (Atarax) 25 mg PO DAILY [facility] Last Admin: 08/03/17 10:29 Dose: 25 mg Piperacillin Sod/Tazobactam Sod (Zosyn 2.25 Gm Iv Premix) 2.25 gm in 50 mls @ 100 mls/hr IVPB Q6H [facility] Last Admin: 08/03/17 14:29 Dose: 100 mls/hr Insulin Aspart (Novolog) 0 unit SC ACHS [facility] PRN Reason: Protocol Last Admin: 08/03/17 12:53 Dose: 4 unit Insulin Detemir (Levemir) 35 unit SC HS [facility] Last Admin: 08/02/17 22:50 Dose: 35 unit Losartan Potassium (Cozaar) 25 mg PO DAILY [facility] Last Admin: 08/03/17 10:29 Dose: 25 mg Pantoprazole Sodium (Protonix Ec Tab) 40 mg PO DAILY [facility] Last Admin: 08/03/17 10:29 Dose: 40 mg Pregabalin (Lyrica) 50 mg PO BID [facility] Last Admin: 08/03/17 10:29 Dose: 50 mg Rosuvastatin Calcium (Crestor) 40 mg PO HS [facility] Last Admin: 08/02/17 22:49 Dose: 40 mg Vitamin B Complex/Vitamin C (Berocca) 1 tab PO DAILY [facility] Last Admin: 08/03/17 10:29 Dose: 1 tab - Labs Labs: 08/02/17 07:13 08/02/17 07:13 PT 14.2 SECONDS (9.7-12.2) H 07/30/17 17:47 INR 1.3 07/30/17 17:47 APTT 33 SECONDS (21-34) 07/30/17 17:47
[2017-08-03] MEDS: Insulin Detemir 100 units/ml Vial (Levemir) SC SCH (21:42)
[2017-08-04] MEDS: Albuterol-Ipratrop 3 mg / 0.5 (3 ml) UD INH SCH ×4 (03:04→19:56)
[2017-08-04] MEDS: Piperacill/Tazo 2.25gm in Dex 2.25 GM/50 ML BAG IVPB SCH ×4 (06:30→23:53)
[2017-08-04 08:54] LABS: BASO % 0.4 % (0.0-2.0); EOS # 0.5 K/uL (0.0-0.7); EOS % 4.9 % (0.0-4.0); HEMOGLOBIN 8.7 g/dL (12.0-18.0); LYMPH # 1.3 K/uL (1.0-4.3); LYMPH % 13.1 % (20.0-40.0); MEAN CELL VOLUME 84.2 fL (80.0-94.0); MEAN CORPUSCULAR HGB CONC 33.2 g/dL (33.0-37.0); MONO # 0.8 K/uL (0.0-0.8); MONO % 7.6 % (0.0-10.0); NEUT # 7.4 K/uL (1.8-7.0); RBC 3.13 Mil/uL (4.40-5.90); RED CELL DISTRIBUTION WIDTH 14.7 % (11.5-14.5); WHITE BLOOD COUNT 9.9 K/uL (4.8-10.8)
[2017-08-04] MEDS: Vitamin B Complex/Vitamin C Tab PO SCH (10:08)
[2017-08-04] MEDS: Pantoprazole 40 mg EC Tab PO SCH (10:08)
[2017-08-04] MEDS: (Novolog) Insulin Aspart, Recombinant 100 u/ml 10 ml vial SC SCH ×4 (14:08→22:21)
--- NOTE | 2017-08-04 15:01 | CP.PCM.PN ---
<Janis Sibley - Last Filed: 08/04/17 15:02> Subjective - Date & Time of Evaluation Date of Evaluation: 08/04/17 Time of Evaluation: 14:59 - Subjective Subjective: 66 year old diabetic male seen at bedside this afternoon for left heel decubitus ulceration. Patient denies any acute events overnight and denies any pain in the left foot. Dressing is clean/dry/intact. Objective - Vital Signs/Intake and Output Vital Signs (last 24 hours): Temp Pulse Resp BP Pulse Ox 98.9 F 72 20 147/63 97 08/03/17 23:45 08/03/17 23:45 08/03/17 23:45 08/03/17 23:45 08/03/17 23:45 Intake and Output: 08/04/17 08/04/17 06:59 18:59 Intake Total 1040 Output Total 250 Balance 790 - Medications Medications: Current Medications Albuterol/Ipratropium (Duoneb 3 Mg/0.5 Mg (3 Ml) Ud) 3 ml INH RQ6 [facility] Last Admin: 08/04/17 13:36 Dose: 3 ml Amlodipine Besylate (Norvasc) 10 mg PO DAILY [facility] Last Admin: 08/04/17 10:08 Dose: 10 mg Carvedilol (Coreg) 6.25 mg PO BID [facility] Last Admin: 08/04/17 10:08 Dose: 6.25 mg Clopidogrel Bisulfate (Plavix) 75 mg PO DAILY [facility] Last Admin: 08/04/17 10:08 Dose: 75 mg Folic Acid (Folic Acid) 1 mg PO DAILY [facility] Last Admin: 08/04/17 10:08 Dose: 1 mg Hydralazine HCl (Apresoline) 10 mg PO TID [facility] Last Admin: 08/04/17 14:17 Dose: 10 mg Hydroxyzine HCl (Atarax) 25 mg PO DAILY [facility] Last Admin: 08/04/17 10:08 Dose: 25 mg Piperacillin Sod/Tazobactam Sod (Zosyn 2.25 Gm Iv Premix) 2.25 gm in 50 mls @ 100 mls/hr IVPB Q6H [facility] Last Admin: 08/04/17 12:13 Dose: 100 mls/hr Insulin Aspart (Novolog) 0 unit SC ACHS [facility] PRN Reason: Protocol Last Admin: 01/07/18 14:09 Dose: 2 unit Insulin Detemir (Levemir) 35 unit SC [facility] Last Admin: 08/03/17 21:42 Dose: 35 unit Losartan Potassium (Cozaar) 25 mg PO DAILY [facility] Last Admin: 08/04/17 10:11 Dose: 25 mg Pantoprazole Sodium (Protonix Ec Tab) 40 mg PO DAILY [facility] Last Admin: 08/04/17 10:08 Dose: 40 mg Pregabalin (Lyrica) 50 mg PO BID [facility] Last Admin: 08/04/17 10:08 Dose: 50 mg Rosuvastatin Calcium (Crestor) 40 mg PO HS [facility] Last Admin: 08/03/17 21:42 Dose: 40 mg Vitamin B Complex/Vitamin C (Berocca) 1 tab PO DAILY [facility] Last Admin: 08/04/17 10:08 Dose: 1 tab - Labs Labs: 08/04/17 08:39 08/04/17 08:37 PT 14.2 SECONDS (9.7-12.2) H 07/30/17 17:47 INR 1.3 07/30/17 17:47 APTT 33 SECONDS (21-34) 07/30/17 17:47 - Constitutional Appears: Well, Non-toxic, No Acute Distress - Extremities Exam Additional comments: Left lower extremity exam (RIGHT BKA) Vasc: Non-palpable DP and PT noted. CFT < 3 seconds to all digits Derm: No open wound is noted. Pre-ulcerative lesion noted to left heel consistent with decubitus ulceration noted measuring 4cm x 4cm. No drainage is noted. Skin is stable and non fissured or sloughed. No malodor noted. No PTB, No sign of acute infection noted Ortho: No pain noted on palpation or application of pressure to decubitus ulcer. Decreased active/passive ROM to joints distal to ankle Neuro: Gross sensation intact - Neurological Exam Neurological Exam: Alert, Awake, Oriented x3 Assessment and Plan - Assessment and Plan (Free Text) Assessment: Assessment: 66 yo male diabetic patient with left heel decubitus ulceration Plan: Patient was seen, evaluated by bedside Discussed plan with attending Dr. Moralez Labs and vitals reviewed; afebrile, WBC 9.9 Multipodus boot to remain on at all times in bed to left foot Left foot dressed with ABD, DSD, and multipodus boot reapplied Podiatry will continue to follow patient while in house <Joel Moralez - Last Filed: 08/05/17 10:11> Objective - Vital Signs/Intake and Output Vital Signs (last 24 hours): Temp Pulse Resp BP Pulse Ox 97.4 F L 61 20 149/65 100 08/05/17 09:07 08/05/17 09:07 08/05/17 09:07 08/05/17 09:07 08/05/17 09:07 Intake and Output: 08/05/17 08/05/17 06:59 18:59 Intake Total 530 Output Total 400 Balance 130 - Medications Medications: Current Medications Amlodipine Besylate (Norvasc) 10 mg PO DAILY [facility] Last Admin: 08/04/17 10:08 Dose: 10 mg Carvedilol (Coreg) 6.25 mg PO BID [facility] Last Admin: 08/04/17 22:49 Dose: 6.25 mg Clopidogrel Bisulfate (Plavix) 75 mg PO DAILY [facility] Last Admin: 08/04/17 10:08 Dose: 75 mg Folic Acid (Folic Acid) 1 mg PO DAILY [facility] Last Admin: 08/04/17 10:08 Dose: 1 mg Heparin Sodium (Porcine) (Heparin) 5,000 units SC Q12 [facility] Last Admin: 08/04/17 22:26 Dose: 5,000 units Hydralazine HCl (Apresoline) 10 mg PO TID [facility] Last Admin: 08/04/17 17:47 Dose: 10 mg Hydroxyzine HCl (Atarax) 25 mg PO DAILY [facility] Last Admin: 08/04/17 10:08 Dose: 25 mg Piperacillin Sod/Tazobactam Sod (Zosyn 2.25 Gm Iv Premix) 2.25 gm in 50 mls @ 100 mls/hr IVPB Q6H [facility] Last Admin: 08/05/17 05:08 Dose: 100 mls/hr Insulin Aspart (Novolog) 0 unit SC ACHS [facility] PRN Reason: Protocol Last Admin: 08/05/17 08:44 Dose: 4 unit Insulin Detemir (Levemir) 35 unit SC HS [facility] Last Admin: 08/04/17 22:28 Dose: 35 unit Losartan Potassium (Cozaar) 25 mg PO DAILY [facility] Last Admin: 08/04/17 10:11 Dose: 25 mg Pantoprazole Sodium (Protonix Ec Tab) 40 mg PO DAILY [facility] Last Admin: 08/04/17 10:08 Dose: 40 mg Pregabalin (Lyrica) 50 mg PO BID [facility] Last Admin: 08/04/17 17:48 Dose: 50 mg Rosuvastatin Calcium (Crestor) 40 mg PO HS [facility] Last Admin: 08/04/17 22:24 Dose: 40 mg Vitamin B Complex/Vitamin C (Berocca) 1 tab PO DAILY [facility] Last Admin: 08/04/17 10:08 Dose: 1 tab - Labs Labs: 08/04/17 08:39 08/04/17 08:37 PT 14.2 SECONDS (9.7-12.2) H 07/30/17 17:47 INR 1.3 07/30/17 17:47 APTT 33 SECONDS (21-34) 07/30/17 17:47 Attending/Attestation - Attestation I have fully participated in the care of the patient.: Yes I have reviewed all pertinent clinical information, including history, physical exam and plan: Yes Notes (Text): 08/05/17 10:11 Stage 1 ulcer
--- NOTE | 2017-08-04 20:31 | CP.PCM.PN ---
Subjective - Date & Time of Evaluation Date of Evaluation: 08/04/17 Time of Evaluation: 13:20 - Subjective Subjective: clincally same Objective - Vital Signs/Intake and Output Vital Signs (last 24 hours): Temp Pulse Resp BP Pulse Ox 98.9 F 72 20 147/63 97 08/03/17 23:45 08/03/17 23:45 08/03/17 23:45 08/03/17 23:45 08/03/17 23:45 - Medications Medications: Current Medications Albuterol/Ipratropium (Duoneb 3 Mg/0.5 Mg (3 Ml) Ud) 3 ml INH RQ6 [facility] Last Admin: 08/04/17 19:56 Dose: 3 ml Amlodipine Besylate (Norvasc) 10 mg PO DAILY [facility] Last Admin: 08/04/17 10:08 Dose: 10 mg Carvedilol (Coreg) 6.25 mg PO BID [facility] Last Admin: 08/04/17 10:08 Dose: 6.25 mg Clopidogrel Bisulfate (Plavix) 75 mg PO DAILY [facility] Last Admin: 08/04/17 10:08 Dose: 75 mg Folic Acid (Folic Acid) 1 mg PO DAILY [facility] Last Admin: 08/04/17 10:08 Dose: 1 mg Heparin Sodium (Porcine) (Heparin) 5,000 units SC Q12 [facility] Hydralazine HCl (Apresoline) 10 mg PO TID [facility] Last Admin: 08/04/17 17:47 Dose: 10 mg Hydroxyzine HCl (Atarax) 25 mg PO DAILY [facility] Last Admin: 08/04/17 10:08 Dose: 25 mg Piperacillin Sod/Tazobactam Sod (Zosyn 2.25 Gm Iv Premix) 2.25 gm in 50 mls @ 100 mls/hr IVPB Q6H [facility] Last Admin: 08/04/17 16:48 Dose: 100 mls/hr Insulin Aspart (Novolog) 0 unit SC ACHS [facility] PRN Reason: Protocol Last Admin: 08/04/17 17:30 Dose: 6 unit Insulin Detemir (Levemir) 35 unit SC HS [facility] Last Admin: 08/03/17 21:42 Dose: 35 unit Losartan Potassium (Cozaar) 25 mg PO DAILY [facility] Last Admin: 08/04/17 10:11 Dose: 25 mg Pantoprazole Sodium (Protonix Ec Tab) 40 mg PO DAILY [facility] Last Admin: 08/04/17 10:08 Dose: 40 mg Pregabalin (Lyrica) 50 mg PO BID [facility] Last Admin: 08/04/17 17:48 Dose: 50 mg Rosuvastatin Calcium (Crestor) 40 mg PO HS [facility] Last Admin: 08/03/17 21:42 Dose: 40 mg Vitamin B Complex/Vitamin C (Berocca) 1 tab PO DAILY [facility] Last Admin: 08/04/17 10:08 Dose: 1 tab - Labs Labs: 08/04/17 08:39 08/04/17 08:37 PT 14.2 SECONDS (9.7-12.2) H 07/30/17 17:47 INR 1.3 07/30/17 17:47 APTT 33 SECONDS (21-34) 07/30/17 17:47
[2017-08-04] MEDS: Insulin Detemir 100 units/ml Vial (Levemir) SC SCH (22:28)
[2017-08-05] MEDS: Albuterol-Ipratrop 3 mg / 0.5 (3 ml) UD INH SCH (02:30)
[2017-08-05] MEDS: Piperacill/Tazo 2.25gm in Dex 2.25 GM/50 ML BAG IVPB SCH (05:08)
[2017-08-05] MEDS: (Novolog) Insulin Aspart, Recombinant 100 u/ml 10 ml vial SC SCH ×2 (08:44→12:17)
[2017-08-05] MEDS: Pantoprazole 40 mg EC Tab PO SCH (10:20)
[2017-08-05] MEDS: Vitamin B Complex/Vitamin C Tab PO SCH (10:20)
--- NOTE | 2017-08-05 14:37 | CP.PCM.PN ---
Subjective - Date & Time of Evaluation Date of Evaluation: 08/05/17 Time of Evaluation: 11:40 - Subjective Subjective: Patient seen today , more alert, denies any chest pain, sob, dizziness, headache , N/V No overnigh t events reported by RN Objective - Vital Signs/Intake and Output Vital Signs (last 24 hours): Temp Pulse Resp BP Pulse Ox 97.4 F L 61 20 149/65 100 08/05/17 09:07 08/05/17 09:07 08/05/17 09:07 08/05/17 09:07 08/05/17 09:07 Intake and Output: 08/05/17 08/05/17 06:59 18:59 Intake Total 530 Output Total 400 Balance 130 - Medications Medications: Current Medications Amlodipine Besylate (Norvasc) 10 mg PO DAILY [facility] Last Admin: 08/05/17 10:20 Dose: 10 mg Carvedilol (Coreg) 6.25 mg PO BID [facility] Last Admin: 08/05/17 10:20 Dose: 6.25 mg Clopidogrel Bisulfate (Plavix) 75 mg PO DAILY [facility] Last Admin: 08/05/17 10:20 Dose: 75 mg Folic Acid (Folic Acid) 1 mg PO DAILY [facility] Last Admin: 08/05/17 10:20 Dose: 1 mg Heparin Sodium (Porcine) (Heparin) 5,000 units SC Q12 [facility] Last Admin: 08/05/17 10:20 Dose: 5,000 units Hydralazine HCl (Apresoline) 10 mg PO TID [facility] Last Admin: 08/05/17 14:20 Dose: 10 mg Hydroxyzine HCl (Atarax) 25 mg PO DAILY [facility] Last Admin: 08/05/17 10:21 Dose: 25 mg Piperacillin Sod/Tazobactam Sod (Zosyn 2.25 Gm Iv Premix) 2.25 gm in 50 mls @ 100 mls/hr IVPB Q6H [facility] Last Admin: 08/05/17 05:08 Dose: 100 mls/hr Insulin Aspart (Novolog) 0 unit SC ACHS [facility] PRN Reason: Protocol Last Admin: 08/05/17 12:17 Dose: 2 unit Insulin Detemir (Levemir) 35 unit SC HS [facility] Last Admin: 08/04/17 22:28 Dose: 35 unit Losartan Potassium (Cozaar) 25 mg PO DAILY [facility] Last Admin: 08/05/17 10:20 Dose: 25 mg Pantoprazole Sodium (Protonix Ec Tab) 40 mg PO DAILY [facility] Last Admin: 08/05/17 10:20 Dose: 40 mg Pregabalin (Lyrica) 50 mg PO BID [facility] Last Admin: 08/05/17 10:20 Dose: 50 mg Rosuvastatin Calcium (Crestor) 40 mg PO HS [facility] Last Admin: 08/04/17 22:24 Dose: 40 mg Vitamin B Complex/Vitamin C (Berocca) 1 tab PO DAILY [facility] Last Admin: 08/05/17 10:20 Dose: 1 tab - Labs Labs: 08/04/17 08:39 08/04/17 08:37 PT 14.2 SECONDS (9.7-12.2) H 07/30/17 17:47 INR 1.3 07/30/17 17:47 APTT 33 SECONDS (21-34) 07/30/17 17:47 Assessment and Plan - Assessment and Plan (Free Text) Assessment: A/P 66 yr old male admitted with hyponatremia Na - improved with samsca and stable - 133>132>124>[address] Mae gonzalez , stable for discharge home today and f/u with his office on and continue augmentin x 10 more day
--- NOTE | 2017-08-05 16:18 | CP.PCM.PN ---
<Arely Camacho - Last Filed: 08/05/17 16:16> Subjective - Date & Time of Evaluation Date of Evaluation: 08/05/17 Time of Evaluation: 16:16 - Subjective Subjective: 66 year old diabetic male seen at bedside this afternoon for left heel decubitus ulceration. Patient denies any acute events overnight and denies any pain in the left foot. Dressing is clean/dry/intact. Patient states that he is being discharged today. Objective - Vital Signs/Intake and Output Vital Signs (last 24 hours): Temp Pulse Resp BP Pulse Ox 97.4 F L 61 20 149/65 100 08/05/17 09:07 08/05/17 09:07 08/05/17 09:07 08/05/17 09:07 08/05/17 09:07 Intake and Output: 08/05/17 08/05/17 06:59 18:59 Intake Total 530 Output Total 400 Balance 130 - Medications Medications: Current Medications Amlodipine Besylate (Norvasc) 10 mg PO DAILY [facility] Last Admin: 08/05/17 10:20 Dose: 10 mg Carvedilol (Coreg) 6.25 mg PO BID [facility] Last Admin: 08/05/17 10:20 Dose: 6.25 mg Clopidogrel Bisulfate (Plavix) 75 mg PO DAILY [facility] Last Admin: 08/05/17 10:20 Dose: 75 mg Folic Acid (Folic Acid) 1 mg PO DAILY [facility] Last Admin: 08/05/17 10:20 Dose: 1 mg Heparin Sodium (Porcine) (Heparin) 5,000 units SC Q12 [facility] Last Admin: 08/05/17 10:20 Dose: 5,000 units Hydralazine HCl (Apresoline) 10 mg PO TID [facility] Last Admin: 08/05/17 14:20 Dose: 10 mg Hydroxyzine HCl (Atarax) 25 mg PO DAILY [facility] Last Admin: 08/05/17 10:21 Dose: 25 mg Piperacillin Sod/Tazobactam Sod (Zosyn 2.25 Gm Iv Premix) 2.25 gm in 50 mls @ 100 mls/hr IVPB Q6H [facility] Last Admin: 08/05/17 05:08 Dose: 100 mls/hr Insulin Aspart (Novolog) 0 unit SC ACHS [facility] PRN Reason: Protocol Last Admin: 08/05/17 12:17 Dose: 2 unit Insulin Detemir (Levemir) 35 unit SC [facility] Last Admin: 08/04/17 22:28 Dose: 35 unit Losartan Potassium (Cozaar) 25 mg PO DAILY [facility] Last Admin: 08/05/17 10:20 Dose: 25 mg Pantoprazole Sodium (Protonix Ec Tab) 40 mg PO DAILY [facility] Last Admin: 08/05/17 10:20 Dose: 40 mg Pregabalin (Lyrica) 50 mg PO BID [facility] Last Admin: 08/05/17 10:20 Dose: 50 mg Rosuvastatin Calcium (Crestor) 40 mg PO HS [facility] Last Admin: 08/04/17 22:24 Dose: 40 mg Vitamin B Complex/Vitamin C (Berocca) 1 tab PO DAILY [facility] Last Admin: 08/05/17 10:20 Dose: 1 tab - Labs Labs: 08/04/17 08:39 08/04/17 08:37 PT 14.2 SECONDS (9.7-12.2) H 07/30/17 17:47 INR 1.3 07/30/17 17:47 APTT 33 SECONDS (21-34) 07/30/17 17:47 - Constitutional Appears: Well, Non-toxic, No Acute Distress - Extremities Exam Additional comments: Left lower extremity exam (RIGHT BKA) Vasc: Non-palpable DP and PT noted. CFT < 3 seconds to all digits Derm: No open wound is noted. Pre-ulcerative lesion noted to left heel consistent with decubitus ulceration noted measuring 4cm x 4cm. No drainage is noted. Skin is stable and non fissured or sloughed. No malodor noted. No PTB, No sign of acute infection noted Ortho: No pain noted on palpation or application of pressure to decubitus ulcer. Decreased active/passive ROM to joints distal to ankle Neuro: Gross sensation intact - Neurological Exam Neurological Exam: Alert, Awake, Oriented x3 - Psychiatric Exam Psychiatric exam: Normal Affect, Normal Mood Assessment and Plan - Assessment and Plan (Free Text) Assessment: 66 yo male diabetic patient with left heel decubitus ulceration Plan: Patient was seen, evaluated by bedside Discussed plan with attending Dr. Moralez Labs and vitals reviewed; afebrile, no new labs Multipodus boot to remain on at all times in bed to left foot Left foot dressed with ABD, DSD, and multipodus boot reapplied patient stable for discharge and to follow up with Dr. Moralez in his office on outpatient basis Podiatry will continue to follow patient while in house <Joel Moralez - Last Filed: 08/06/17 11:17> Objective - Vital Signs/Intake and Output Vital Signs (last 24 hours): Temp Pulse Resp BP Pulse Ox 98.1 F 66 20 157/67 H 97 08/05/17 16:30 08/05/17 16:30 08/05/17 16:30 08/05/17 16:30 08/05/17 16:30 - Labs Labs: 08/04/17 08:39 08/04/17 08:37 PT 14.2 SECONDS (9.7-12.2) H 07/30/17 17:47 INR 1.3 07/30/17 17:47 APTT 33 SECONDS (21-34) 07/30/17 17:47 Attending/Attestation - Attestation I have fully participated in the care of the patient.: Yes I have reviewed all pertinent clinical information, including history, physical exam and plan: Yes
[2017-08-05 16:31] VITALS: BP 157/67; PULSE 66; TEMP 98.1; O2SAT 97
--- NOTE | 2017-08-06 09:49 | PCM.HF ---
Heart Failure Core Measure - Heart Failure Ejection Fraction: 40 % or Greater Left Ventricular Function to be assessed after discharge: Yes LOVELY Inhibitor Prescribed: No Contraindication/Reason for not providing: on ARB Beta-Taj Prescribed: Carvedilol Angiotensin II Receptor Taj Prescribed: Yes AnticoagulationTherapy for Atrial Fibrillation/Atrialflutter: No Contraindication/Reason for not providing: no hx of a fib Aldosterone Antagonist Prescribed: No Contraindication/Reason for not providing: ef>45 Hydralazine Nitrate Prescribed: Yes Implantable Cardioverter Defibrillator Therapy: No Contraindication/Reason for not providing: ef>45 Cardiac Resynchronization Therapy Prescribed: No Contraindication/Reason for not providing: ef>45 - Follow up Will be discharged to: Home Follow Up Date (must be within 7 days from discharge): 08/08/17 Follow Up Time: 09:00
== END 2017-08-05 17:09 | disposition home or self-care (01) | DRG 194 ==
LOC: C.ER 14:58 → C.9E 18:48 → C.6T 18:48
PROVIDERS: ADMIT Internal Medicine Nephrology; ATTEND Internal Medicine Nephrology
DX: J18.9 Pneumonia, unspecified organism (principal); I13.0 Hypertensive heart and chronic kidney disease with heart failure and stage 1 through stage 4 chronic kidney disease, or unspecified chronic kidney disease; E11.22 Type 2 diabetes mellitus with diabetic chronic kidney disease; E11.621 Type 2 diabetes mellitus with foot ulcer; E87.1 Hypo-osmolality and hyponatremia; I50.9 Heart failure, unspecified; L89.621 Pressure ulcer of left heel, stage 1; E78.00 Pure hypercholesterolemia, unspecified; L97.529 Non-pressure chronic ulcer of other part of left foot with unspecified severity; N45.1 Epididymitis; K21.9 Gastro-esophageal reflux disease without esophagitis; H54.61 Unqualified visual loss, right eye, normal vision left eye; N18.9 Chronic kidney disease, unspecified; H91.91 Unspecified hearing loss, right ear; Z95.5 Presence of coronary angioplasty implant and graft; Z87.891 Personal history of nicotine dependence; Z95.1 Presence of aortocoronary bypass graft

== ENCOUNTER 2018-09-16 09:03 | Inpatient (IN) | payer MEDICARE, OTHER ==
[2018-09-16 09:04] VITALS: BMI 23.3
--- NOTE | 2018-09-16 09:46 | C.PDOC ---
History Of Present Illness 67 y/o male with a PMHx of diabetes, hypertension, CVA (right sided deficits), peripheral vascular disease, and s/p right BKA presents to the ED for evaluation of left-sided ischemic toes. Patient was sent here by cook at school Dr. Joel Moralez, who he saw this morning. He arrives with note, stating patient is to be admitted under Dr. Mae Montana for left foot ischemia, PVD, and diabetes. Requests left foot x-rays and consult to podiatry and vascular, Dr. Iraheta. On arrival patient states he has no feeling in left foot secondary to diabetes. He denies any fevers, chills, foot pain, chest pain, SOB, dizziness, headache, abdominal pain, nausea, or vomiting. Patient offers no other complaints. Time Seen by Provider: 09/16/18 09:32 Chief Complaint (Nursing): Lower Extremity Problem/Injury History Per: Patient History/Exam Limitations: no limitations Onset/Duration Of Symptoms: Hrs Current Symptoms Are (Timing): Still Present Past Medical History Reviewed: Historical Data, Nursing Documentation, Vital Signs Vital Signs: Last Vital Signs Temp 97.6 F 09/16/18 09:16 Pulse 65 09/16/18 09:16 Resp 18 09/16/18 09:16 BP Pulse Ox 100 09/16/18 09:16 - Medical History PMH: Diabetes, Fractures (RIGHT ARM CHILDHOOD), HTN, Hypercholesterolemia, Peripheral Edema, Chronic Kidney Disease (BORDERLINE) Surgical History: CABG, Coronary Stent (2003), Endoscopy Other Surgeries: Right BKA - [facility] Procedures ANGIOPLASTY OF OTHER NON-CORONARY VESSEL(S) (06/09/13) CONTRAST AORTOGRAM (09/10/14) CONTRAST ARTERIOGRAM-LEG (09/10/14) HETEROGRAFT TO SKIN (05/23/07) LOC EXC BONE LESION NEC (05/23/07) PROCEDURE ON SINGLE VESSEL (06/09/13) PROCEDURE ON VESSEL BIFURCATION (06/09/13) Family History: States: Unknown Family Hx - Social History Hx Alcohol Use: No Hx Substance Use: No - Immunization History Hx Tetanus Toxoid Vaccination: No Hx Influenza Vaccination: Yes Hx Pneumococcal Vaccination: Yes Review Of Systems Except As Marked, All Systems Reviewed And Found Negative. Constitutional: Negative for: Fever, Chills Eyes: Negative for: Vision Change ENT: Negative for: Nose Congestion, Throat Pain Cardiovascular: Negative for: Chest Pain, Palpitations, Light Headedness Respiratory: Negative for: Cough, Shortness of Breath Gastrointestinal: Negative for: Nausea, Vomiting, Abdominal Pain Musculoskeletal: Negative for: Back Pain, Leg Pain, Foot Pain Skin: Positive for: Other (Necrotic left toes). Negative for: Rash Neurological: Positive for: Numbness (Left foot). Negative for: Weakness, Headache, Dizziness Physical Exam - Physical Exam Appears: Non-toxic, No Acute Distress Skin: Warm, Dry Head: Atraumatic, Normacephalic Eye(s): right: Other (chronic deficits), left: Normal Inspection, PERRL, EOMI Ear(s): Right: Other (chronic hearing loss) Neck: Normal ROM, Supple Chest: Symmetrical Cardiovascular: Rhythm Regular Respiratory: Normal Breath Sounds, No Rales, No Rhonchi, No Wheezing Gastrointestinal/Abdominal: Soft, No Tenderness, No Distention Extremity: Normal ROM, No Tenderness, No Pedal Edema, Capillary Refill (<2s), Deformity (Right BKA), Other (multiple chronic ulcers to left lower leg, no signs of infection; left foot digits 1, 2, and 3 have black distal eschars but are otherwise normal) Pulses: Left Radial: Normal, Right Radial: Normal, Left Dorsalis Pedis: Decreased, Right Dorsalis Pedis: Absent Neurological/Psych: Oriented x3, Normal Speech Gait: Other (ambulates with wheelchair) ED Course And Treatment - Laboratory Results Result Diagrams: 09/19/18 06:51 09/19/18 06:51 Lab Results: 09/16/18 10:19 09/16/18 10:19 ECG: Viewed By Me ECG Rhythm: Sinus Rhythm ECG Interpretation: No Acute Changes Interpretation Of ECG: Rate 65; NSR; Normal Intervals; No STEMI, nonspecific ST/T wave changes Rate From EC O2 Sat by Pulse Oximetry: 100 (RA) Pulse Ox Interpretation: Normal Medical Decision Making Medical Decision Making: Plan: - Labs - blood cultures - Left foot x-ray - Left tib/fib x-ray - EKG - Podiatry consult 10:00 Spoke with podiatry residentMeir who will come evaluate patient in ED and followup on Xrays 10:45 Discussed case with cook at school Dr. Moralez, who will see patient in hospital. Labwork reviewed, thrombocytopenia, mild hyperglycemia and hyperkalemia, specimen slightly hemolyzed, patient known diabetic EKG shows no acute changes 11:[address] Mae Montana, accepts patient for admission. Disposition - Disposition Disposition: HOSPITALIZED Disposition Time: 11:25 Condition: STABLE - Clinical Impression Clinical Impression: Diabetes mellitus, Peripheral vascular disease, Ischemic toe - PA / FARM REPORTER / Resident Statement MD/DO has reviewed & agrees with the documentation as recorded. - Scribe Statement The provider has reviewed the documentation as recorded by the Thoribgalen Rodriguez All medical record entries made by the Thoribgalen were at my direction and personally dictated by me. I have reviewed the chart and agree that the record accurately reflects my personal performance of the history, physical exam, medical decision making, and the department course for this patient. I have also personally directed, reviewed, and agree with the discharge instructions and disposition.
[2018-09-16 10:28] LABS: EOS # 0.2 K/uL (0.0-0.7); LYMPH # 1.8 K/uL (1.0-4.3); MEAN CORPUSCULAR HGB CONC 33.2 g/dL (33.0-37.0); MONO # 0.5 K/uL (0.0-0.8); NRBC % 0.1 % (0.0-2.0)
[2018-09-16 10:35] LABS: BASO % 0.7 % (0.0-2.0); EOS % 2.5 % (0.0-4.0); HEMOGLOBIN 12.2 g/dL (12.0-18.0); LYMPH % 29.5 % (20.0-40.0); MEAN CORPUSCULAR HEMOGLOBIN 28.6 pg (27.0-31.0); MEAN PLATELET VOLUME 11.8 fL (7.2-11.7); MONO % 8.3 % (0.0-10.0); NEUT # 3.6 K/uL (1.8-7.0); RBC 4.26 Mil/uL (4.40-5.90)
[2018-09-16 10:49] LABS: BLOOD UREA NITROGEN 56 mg/dL (9-20); CALCIUM 8.5 mg/dl (8.6-10.4); GFR NON-AFRICAN AMERICAN 50
[2018-09-16 11:00] LABS: ALB/GLOB RATIO 1.4 (1.0-2.1); ALBUMIN 4.3 g/dL (3.5-5.0); ALT/SGPT 20 U/L (21-72); AST/SGOT 31 U/L (17-59)
[2018-09-16 11:47] LABS: INR 1.1; PROTHROMBIN TIME 11.9 SECONDS (9.7-12.2)
--- NOTE | 2018-09-16 12:07 | RAD ---
Date of service: 09/16/2018 PROCEDURE: Left Foot Radiographs. HISTORY: ischemic digits COMPARISON: None. 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 There is diffuse bone demineralization. Bone alignment is normal. No acute displaced fracture or bone destruction. JOINTS: Mild degenerative osteoarthrosis in the 1st MTP joint. The remaining joint spaces are preserved. SOFT TISSUES: Normal. OTHER FINDINGS: There are advanced atherosclerotic vascular calcifications. 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
--- NOTE | 2018-09-16 12:10 | RAD ---
Date of service: 09/16/2018 PROCEDURE: Radiographs of the left tibia and fibula. HISTORY: chronic wounds COMPARISON: None available. TECHNIQUE: Frontal and lateral views obtained. FINDINGS: BONES: Bone alignment and mineralization are normal. No acute displaced fracture or bone destruction. JOINT SPACES: Unremarkable. OTHER FINDINGS: There are atherosclerotic vascular calcifications. IMPRESSION: No acute fracture or bone destruction.
[2018-09-16 12:17] LABS: URINE BACTERIA OCC (<OCC); URINE BILIRUBIN NEGATIVE (NEGATIVE); URINE BLOOD NEGATIVE (NEGATIVE); URINE CLARITY Clear (Clear); URINE COLOR Straw (YELLOW); URINE GLUCOSE (UA) NORMAL (Normal); URINE LEUKOCYTE ESTERASE TRACE Leu/uL (Negative); URINE PROTEIN NEGATIVE (NEGATIVE); URINE UROBILINOGEN NORMAL mg/dL (0.2-1.0)
--- NOTE | 2018-09-16 12:35 | CP.PCM.CON ---
History of Present Illness - History of Present Illness History of Present Illness: Podiatry Consult Note - Dr. Moralez 67 year old male patient PMHx diabetes, hypertension, peripheral vascular disease, s/p right BKA seen and evaluated in ED for left foot ischemia/gangrene of digits. Patient was sent to ED by Dr. Moralez for further evaluation by vascular. Patient states he has been dealing with the discoloration in digits "for a long time" with weeks of improvement or worsening however has never been this bad. Patient denies any pain due to no sensation in his left. Denies n/v/f/d/c/sob. 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 - HEENT Hx HEENT Problems: Yes Hx Blind: Yes (RIGHT EYE) Hx Deafness: Yes (RIGHT EAR) - RENAL Hx Chronic Kidney Disease: Yes (BORDERLINE) - ENDOCRINE/METABOLIC Hx Diabetes Mellitus Type 2: Yes - HEMATOLOGICAL/ONCOLOGICAL Hx Blood Disorders: No Hx Blood Transfusions: (MAYBE) - INTEGUMENTARY Hx Dermatological Problems: Yes Other/Comment: ULCERS LEFT FOOT HEEL; left foot ischemic digits - MUSCULOSKELETAL/RHEUMATOLOGICAL Hx Fractures: Yes (RIGHT ARM CHILDHOOD) - GASTROINTESTINAL Hx Gastrointestinal Disorders: Yes Hx Gastroesophageal Reflux: Yes - GENITOURINARY/GYNECOLOGICAL Hx Genitourinary Disorders: No - PSYCHIATRIC Hx Substance Use: No - SURGICAL HISTORY Hx Coronary Artery Bypass Graft: Yes Hx Coronary Stent: Yes (2003) - ANESTHESIA Hx Anesthesia: Yes Hx Anesthesia Reactions: No Hx Malignant Hyperthermia: No Meds Allergies/Adverse Reactions: Allergies Allergy/AdvReac Type Severity Reaction Status Date / Time No Known Allergies Allergy Verified 08/11/15 09:42 Physical Exam - Constitutional Appears: Non-toxic, No Acute Distress - Extremities Exam Additional comments: R BKA LLE focused: VASC: DP and PT pulses nonpalpable. CFT unable to assess. Temperature gradient warm to cool. Edema noted to digits. NEURO: Protective sensation absent. DERM: Ischemia/gangrenous changes noted to distal aspects of digits, superficial wound noted to medial aspect of hallucal tuft, no drainage, no purulence, no fluctuance, no malodor ORTHO: No pain on palpation present. - Neurological Exam Neurological exam: Alert - Psychiatric Exam Psychiatric exam: Normal Affect, Normal Mood Results - Vital Signs Recent Vital Signs: Last Vital Signs Temp 97.6 F 09/16/18 09:16 Pulse 84 09/16/18 11:36 Resp 20 09/16/18 11:36 BP 175/75 H 09/16/18 11:36 Pulse Ox 100 09/16/18 11:36 - Labs Result Diagrams: 09/16/18 10:19 09/16/18 10:19 Labs: Laboratory Results - last 24 hr 09/16/18 09/16/18 09/16/18 10:19 10:19 11:36 WBC 6.0 RBC 4.26 L Hgb 12.2 D Hct 36.7 MCV 86.0 MCH 28.6 MCHC 33.2 RDW 15.0 H Plt Count 112 L D MPV 11.8 H Neut % (Auto) 59.0 Lymph % (Auto) 29.5 [place] % (Auto) 8.3 Eos % (Auto) 2.5 Baso % (Auto) 0.7 Neut # (Auto) 3.6 Lymph # (Auto) 1.8 [place] # (Auto) 0.5 Eos # (Auto) 0.2 Baso # (Auto) 0.0 Differential Comment PT 11.9 INR 1.1 APTT 35 H Sodium 136 Potassium 5.5 H Chloride 103 Carbon Dioxide 22 Anion Gap 17 BUN 56 H Creatinine 1.4 Est GFR ( Amer) > 60 Est GFR (Non-Af Amer) 50 Random Glucose 168 H Calcium 8.5 L Total Bilirubin 0.6 AST 31 ALT 20 L D Alkaline Phosphatase 119 Total Protein 7.3 Albumin 4.3 Globulin 3.0 Albumin/Globulin Ratio 1.4 Urine Color Urine Clarity Urine pH Ur Specific [place] Urine Protein Urine Glucose (UA) Urine Ketones Urine Blood Urine Nitrate Urine Bilirubin Urine Urobilinogen Ur Leukocyte Esterase Urine WBC (Auto) Urine RBC (Auto) Urine Bacteria Hyaline Casts 09/16/18 12:03 WBC RBC Hgb Hct MCV MCH MCHC RDW Plt Count MPV Neut % (Auto) Lymph % (Auto) [place] % (Auto) Eos % (Auto) Baso % (Auto) Neut # (Auto) Lymph # (Auto) [place] # (Auto) Eos # (Auto) Baso # (Auto) Differential Comment PT INR APTT Sodium Potassium Chloride Carbon Dioxide Anion Gap BUN Creatinine Est GFR ( Amer) Est GFR (Non-Af Amer) Random Glucose Calcium Total Bilirubin AST ALT Alkaline Phosphatase Total Protein Albumin Globulin Albumin/Globulin Ratio Urine Color Straw Urine Clarity Clear Urine pH 6.0 Ur Specific [place] 1.006 Urine Protein Negative Urine Glucose (UA) Normal Urine Ketones Negative Urine Blood Negative Urine Nitrate Negative Urine Bilirubin Negative Urine Urobilinogen Normal Ur Leukocyte Esterase Trace Urine WBC (Auto) 5 Urine RBC (Auto) 1 Urine Bacteria Occ H Hyaline Casts 3-5 H Assessment & Plan - Assessment and Plan (Free Text) Assessment: 67M with left foot ischemia 2/2 PVD Plan: Patient seen and evaluated alongside attending, Dr. Moralez Afebrile, WBC 6.0 Left foot, tibfib XR ordered Vascular, Dr. Iraheta consulted - CTA ordered Local wound care: DSD LLE Podiatry will continue to follow
[2018-09-16] MEDS: Sodium Chloride 0.9% 1,000 ML IV SCH (13:51)
[2018-09-16] MEDS ORDERED: Iodixanol 320 mg/ml 150 ml Bottle IV ONE ×2 (16:13→20:46)
[2018-09-16] MEDS: (Novolin R) Insulin Human Regular 100 units/ml vial SC SCH ×2 (17:19→21:29)
--- NOTE | 2018-09-16 17:50 | CP.PCM.HP ---
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 - HEENT Hx HEENT Problems: Yes Hx Blind: Yes (RIGHT EYE) Hx Deafness: Yes (RIGHT EAR) - RENAL Hx Chronic Kidney Disease: Yes (BORDERLINE) - ENDOCRINE/METABOLIC Hx Diabetes Mellitus Type 2: Yes - HEMATOLOGICAL/ONCOLOGICAL Hx Blood Disorders: No Hx Blood Transfusions: (MAYBE) - INTEGUMENTARY Hx Dermatological Problems: Yes Other/Comment: ULCERS LEFT FOOT HEEL; left foot ischemic digits - MUSCULOSKELETAL/RHEUMATOLOGICAL Hx Fractures: Yes (RIGHT ARM CHILDHOOD) - GASTROINTESTINAL Hx Gastrointestinal Disorders: Yes Hx Gastroesophageal Reflux: Yes - GENITOURINARY/GYNECOLOGICAL Hx Genitourinary Disorders: No - PSYCHIATRIC Hx Substance Use: No - SURGICAL HISTORY Hx Coronary Artery Bypass Graft: Yes Hx Coronary Stent: Yes (2003) - ANESTHESIA Hx Anesthesia: Yes Hx Anesthesia Reactions: No Hx Malignant Hyperthermia: No Meds Allergies/Adverse Reactions: Allergies Allergy/AdvReac Type Severity Reaction Status Date / Time No Known Allergies Allergy Verified 08/11/15 09:42 Physical Exam - Constitutional Appears: Well - Head Exam Head Exam: ATRAUMATIC, NORMAL INSPECTION, NORMOCEPHALIC - Eye Exam Eye Exam: EOMI, Normal appearance, PERRL Pupil Exam: NORMAL ACCOMODATION, PERRL - ENT Exam ENT Exam: Mucous Membranes Moist, Normal Exam - Neck Exam Neck exam: Positive for: Normal Inspection - Respiratory Exam Respiratory Exam: Decreased Breath Sounds - Cardiovascular Exam Cardiovascular Exam: REGULAR RHYTHM, +S1, +S2 - GI/Abdominal Exam GI & Abdominal Exam: Diminished Bowel Sounds, Soft - Rectal Exam Rectal Exam: Deferred Results - Vital Signs Recent Vital Signs: Last Vital Signs Temp 97.7 F 09/16/18 16:00 Pulse 69 09/16/18 16:00 Resp 20 09/16/18 16:00 BP 180/70 H 09/16/18 17:22 Pulse Ox 97 09/16/18 16:00 - Labs Result Diagrams: 09/16/18 10:19 09/16/18 10:19 Labs: Laboratory Results - last 24 hr 09/16/18 09/16/18 09/16/18 10:19 10:19 11:36 WBC 6.0 RBC 4.26 L Hgb 12.2 D Hct 36.7 MCV 86.0 MCH 28.6 MCHC 33.2 RDW 15.0 H Plt Count 112 L D MPV 11.8 H Neut % (Auto) 59.0 Lymph % (Auto) 29.5 [place] % (Auto) 8.3 Eos % (Auto) 2.5 Baso % (Auto) 0.7 Neut # (Auto) 3.6 Lymph # (Auto) 1.8 [place] # (Auto) 0.5 Eos # (Auto) 0.2 Baso # (Auto) 0.0 Differential Comment PT 11.9 INR 1.1 APTT 35 H Sodium 136 Potassium 5.5 H Chloride 103 Carbon Dioxide 22 Anion Gap 17 BUN 56 H Creatinine 1.4 Est GFR ( Amer) > 60 Est GFR (Non-Af Amer) 50 POC Glucose (mg/dL) Random Glucose 168 H Calcium 8.5 L Total Bilirubin 0.6 AST 31 ALT 20 L D Alkaline Phosphatase 119 Total Protein 7.3 Albumin 4.3 Globulin 3.0 Albumin/Globulin Ratio 1.4 Urine Color Urine Clarity Urine pH Ur Specific [place] Urine Protein Urine Glucose (UA) Urine Ketones Urine Blood Urine Nitrate Urine Bilirubin Urine Urobilinogen Ur Leukocyte Esterase Urine WBC (Auto) Urine RBC (Auto) Urine Bacteria Hyaline Casts 09/16/18 09/16/18 09/16/18 12:03 13:13 16:22 WBC RBC Hgb Hct MCV MCH MCHC RDW Plt Count MPV Neut % (Auto) Lymph % (Auto) [place] % (Auto) Eos % (Auto) Baso % (Auto) Neut # (Auto) Lymph # (Auto) [place] # (Auto) Eos # (Auto) Baso # (Auto) Differential Comment PT INR APTT Sodium Potassium Chloride Carbon Dioxide Anion Gap BUN Creatinine Est GFR ( Amer) Est GFR (Non-Af Amer) POC Glucose (mg/dL) 200 H 422 H* Random Glucose Calcium Total Bilirubin AST ALT Alkaline Phosphatase Total Protein Albumin Globulin Albumin/Globulin Ratio Urine Color Straw Urine Clarity Clear Urine pH 6.0 Ur Specific [place] 1.006 Urine Protein Negative Urine Glucose (UA) Normal Urine Ketones Negative Urine Blood Negative Urine Nitrate Negative Urine Bilirubin Negative Urine Urobilinogen Normal Ur Leukocyte Esterase Trace Urine WBC (Auto) 5 Urine RBC (Auto) 1 Urine Bacteria Occ H Hyaline Casts 3-5 H
--- NOTE | 2018-09-16 21:42 | CP.PCM.CON ---
History of Present Illness - History of Present Illness History of Present Illness: SURGERY CONSULT NOTE FOR DR. SCHNEIDER 67M presents with left lower extremity ulcers and discoloration in the toes. Patient states the discoloration started two days ago. He admits to decrease sensation in the left leg. 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 - HEENT Hx HEENT Problems: Yes Hx Blind: Yes (RIGHT EYE) Hx Deafness: Yes (RIGHT EAR) - RENAL Hx Chronic Kidney Disease: Yes (BORDERLINE) - ENDOCRINE/METABOLIC Hx Diabetes Mellitus Type 2: Yes - HEMATOLOGICAL/ONCOLOGICAL Hx Blood Disorders: No Hx Blood Transfusions: (MAYBE) - INTEGUMENTARY Hx Dermatological Problems: Yes Other/Comment: ULCERS LEFT FOOT HEEL; left foot ischemic digits - MUSCULOSKELETAL/RHEUMATOLOGICAL Hx Fractures: Yes (RIGHT ARM CHILDHOOD) - GASTROINTESTINAL Hx Gastrointestinal Disorders: Yes Hx Gastroesophageal Reflux: Yes - GENITOURINARY/GYNECOLOGICAL Hx Genitourinary Disorders: No - PSYCHIATRIC Hx Substance Use: No - SURGICAL HISTORY Hx Coronary Artery Bypass Graft: Yes Hx Coronary Stent: Yes (2003) - ANESTHESIA Hx Anesthesia: Yes Hx Anesthesia Reactions: No Hx Malignant Hyperthermia: No Meds Allergies/Adverse Reactions: Allergies Allergy/AdvReac Type Severity Reaction Status Date / Time No Known Allergies Allergy Verified 08/11/15 09:42 - Medications Medications: Current Medications Amlodipine Besylate (Norvasc) 10 mg PO DAILY [facility] Carvedilol (Coreg) 12.5 mg PO BID [facility] Last Admin: 09/16/18 17:22 Dose: 12.5 mg Clopidogrel Bisulfate (Plavix) 75 mg PO DAILY [facility] Folic Acid (Folic Acid) 1 mg PO DAILY [facility] Heparin Sodium (Porcine) (Heparin) 5,000 units SC Q12 [facility] Sodium Chloride (Sodium Chloride 0.9%) 1,000 mls @ 80 mls/hr IV .[id number] [facility] Last Admin: 09/16/18 13:51 Dose: 80 mls/hr Insulin Human Regular (Novolin R) 0 unit SC ACHS [facility]; Protocol Last Admin: 09/16/18 21:29 Dose: Not Given Pantoprazole Sodium (Protonix Inj) 40 mg IVP DAILY [facility] Last Admin: 09/16/18 13:51 Dose: 40 mg Pregabalin (Lyrica) 50 mg PO BID [facility] Last Admin: 09/16/18 17:22 Dose: 50 mg Rosuvastatin Calcium (Crestor) 5 mg PO HS [facility] Last Admin: 09/16/18 21:28 Dose: 5 mg Physical Exam - Constitutional Appears: Non-toxic, No Acute Distress - Respiratory Exam Respiratory Exam: Clear to Auscultation Bilateral, NORMAL BREATHING PATTERN - Cardiovascular Exam Cardiovascular Exam: REGULAR RHYTHM, +S1, +S2 - GI/Abdominal Exam GI & Abdominal Exam: Soft. absent: Distended, Firm, Guarding, Rebound, Rigid, Tenderness - Extremities Exam Additional comments: left lower extremity ulcers in all toes and lower leg no sensation below knee no draining wound able to move toes - Neurological Exam Neurological exam: Alert, Oriented x3 - Skin Skin Exam: Dry, Intact, Normal Color, Warm Results - Vital Signs Recent Vital Signs: Last Vital Signs Temp 97.7 F 09/16/18 16:00 Pulse 69 09/16/18 16:00 Resp 20 09/16/18 16:00 BP 180/70 H 09/16/18 17:22 Pulse Ox 97 09/16/18 16:00 - Labs Result Diagrams: 09/16/18 10:19 09/16/18 10:19 Labs: Laboratory Results - last 24 hr 09/16/18 09/16/18 09/16/18 10:19 10:19 11:36 WBC 6.0 RBC 4.26 L Hgb 12.2 D Hct 36.7 MCV 86.0 MCH 28.6 MCHC 33.2 RDW 15.0 H Plt Count 112 L D MPV 11.8 H Neut % (Auto) 59.0 Lymph % (Auto) 29.5 [place] % (Auto) 8.3 Eos % (Auto) 2.5 Baso % (Auto) 0.7 Neut # (Auto) 3.6 Lymph # (Auto) 1.8 [place] # (Auto) 0.5 Eos # (Auto) 0.2 Baso # (Auto) 0.0 Differential Comment PT 11.9 INR 1.1 APTT 35 H Sodium 136 Potassium 5.5 H Chloride 103 Carbon Dioxide 22 Anion Gap 17 BUN 56 H Creatinine 1.4 Est GFR ( Amer) > 60 Est GFR (Non-Af Amer) 50 POC Glucose (mg/dL) Random Glucose 168 H Calcium 8.5 L Total Bilirubin 0.6 AST 31 ALT 20 L D Alkaline Phosphatase 119 Total Protein 7.3 Albumin 4.3 Globulin 3.0 Albumin/Globulin Ratio 1.4 Urine Color Urine Clarity Urine pH Ur Specific [place] Urine Protein Urine Glucose (UA) Urine Ketones Urine Blood Urine Nitrate Urine Bilirubin Urine Urobilinogen Ur Leukocyte Esterase Urine WBC (Auto) Urine RBC (Auto) Urine Bacteria Hyaline Casts 09/16/18 09/16/18 09/16/18 12:03 13:13 16:22 WBC RBC Hgb Hct MCV MCH MCHC RDW Plt Count MPV Neut % (Auto) Lymph % (Auto) [place] % (Auto) Eos % (Auto) Baso % (Auto) Neut # (Auto) Lymph # (Auto) [place] # (Auto) Eos # (Auto) Baso # (Auto) Differential Comment PT INR APTT Sodium Potassium Chloride Carbon Dioxide Anion Gap BUN Creatinine Est GFR ( Amer) Est GFR (Non-Af Amer) POC Glucose (mg/dL) 200 H 422 H* Random Glucose Calcium Total Bilirubin AST ALT Alkaline Phosphatase Total Protein Albumin Globulin Albumin/Globulin Ratio Urine Color Straw Urine Clarity Clear Urine pH 6.0 Ur Specific [place] 1.006 Urine Protein Negative Urine Glucose (UA) Normal Urine Ketones Negative Urine Blood Negative Urine Nitrate Negative Urine Bilirubin Negative Urine Urobilinogen Normal Ur Leukocyte Esterase Trace Urine WBC (Auto) 5 Urine RBC (Auto) 1 Urine Bacteria Occ H Hyaline Casts 3-5 H 09/16/18 21:06 WBC RBC Hgb Hct MCV MCH MCHC RDW Plt Count MPV Neut % (Auto) Lymph % (Auto) [place] % (Auto) Eos % (Auto) Baso % (Auto) Neut # (Auto) Lymph # (Auto) [place] # (Auto) Eos # (Auto) Baso # (Auto) Differential Comment PT INR APTT Sodium Potassium Chloride Carbon Dioxide Anion Gap BUN Creatinine Est GFR ( Amer) Est GFR (Non-Af Amer) POC Glucose (mg/dL) 383 H Random Glucose Calcium Total Bilirubin AST ALT Alkaline Phosphatase Total Protein Albumin Globulin Albumin/Globulin Ratio Urine Color Urine Clarity Urine pH Ur Specific [place] Urine Protein Urine Glucose (UA) Urine Ketones Urine Blood Urine Nitrate Urine Bilirubin Urine Urobilinogen Ur Leukocyte Esterase Urine WBC (Auto) Urine RBC (Auto) Urine Bacteria Hyaline Casts Assessment & Plan - Assessment and Plan (Free Text) Assessment: 67M with severe PVD Plan: - await CTA report Further recs discuss with Dr. Esequiel Mejia, PGY3
[2018-09-16] MEDS ORDERED: (Lantus) Insulin Glargine, Recombinant SC ONE (21:45)
[2018-09-17] MEDS: Sodium Chloride 0.9% 1,000 ML IV SCH ×3 (02:00→15:00)
--- NOTE | 2018-09-17 08:08 | CP.PCM.PN ---
Subjective - Date & Time of Evaluation Date of Evaluation: 09/17/18 Time of Evaluation: 08:07 - Subjective Subjective: cta reviewed plan angio 09/18 Objective - Vital Signs/Intake and Output Vital Signs (last 24 hours): Temp Pulse Resp BP Pulse Ox 97.7 F 63 16 154/58 H 100 09/17/18 00:00 09/17/18 00:00 09/17/18 00:00 09/17/18 00:00 09/17/18 06:59 Intake and Output: 09/17/18 09/17/18 06:59 18:59 Intake Total 940 Output Total 500 Balance 440 - Medications Medications: Current Medications Amlodipine Besylate (Norvasc) 10 mg PO DAILY [facility] Carvedilol (Coreg) 12.5 mg PO BID [facility] Last Admin: 09/16/18 17:22 Dose: 12.5 mg Clopidogrel Bisulfate (Plavix) 75 mg PO DAILY [facility] Folic Acid (Folic Acid) 1 mg PO DAILY [facility] Heparin Sodium (Porcine) (Heparin) 5,000 units SC Q12 [facility] Last Admin: 09/16/18 22:30 Dose: 5,000 units Sodium Chloride (Sodium Chloride 0.9%) 1,000 mls @ 80 mls/hr IV .[id number] [facility] Last Admin: 09/17/18 05:21 Dose: 80 mls/hr Insulin Human Regular (Novolin R) 0 unit SC ACHS [facility]; Protocol Last Admin: 09/16/18 21:29 Dose: Not Given Pantoprazole Sodium (Protonix Inj) 40 mg IVP DAILY [facility] Last Admin: 09/16/18 13:51 Dose: 40 mg Pregabalin (Lyrica) 50 mg PO BID [facility] Last Admin: 09/16/18 17:22 Dose: 50 mg Rosuvastatin Calcium (Crestor) 5 mg PO HS [facility] Last Admin: 09/16/18 21:28 Dose: 5 mg - Labs Labs: 09/16/18 10:19 09/16/18 10:19 PT 11.9 SECONDS (9.7-12.2) 09/16/18 11:36 INR 1.1 09/16/18 11:36 APTT 35 SECONDS (21-34) H 09/16/18 11:36
[2018-09-17] MEDS: (Novolin R) Insulin Human Regular 100 units/ml vial SC SCH (08:20)
[2018-09-17] MEDS: (Novolog) Insulin Aspart, Recombinant 100 u/ml 10 ml vial SC SCH ×4 (09:43→21:20)
--- NOTE | 2018-09-17 10:22 | CT ---
Date of service: 09/16/2018 PROCEDURE: CT Angiography Abdomen, Pelvis and Lower Extremity with Contrast HISTORY: gangrene COMPARISON: None available. TECHNIQUE: Technique: CT angiography of the abdomen, pelvis and bilateral lower extremities performed in the arterial phase of enhancement. Coronal and sagittal reformats, and well as rotating MIP images of the vessels generated at the workstation. Intravenous contrast dose: 150 milliliters Visipaque 320 Radiation dose: Total exam DLP = 1253.99 mGy-cm. This CT exam was performed using one or more of the following dose reduction techniques: Automated exposure control, adjustment of the mA and/or kV according to patient size, and/or use of iterative reconstruction technique. FINDINGS: CT ANGIOGRAPHY: ABDOMINAL AORTA:: Mild calcific plaque in abdominal aorta without significant stenosis or aneurysm. MAJOR AORTIC BRANCHES: Celiac Ponder: Moderate stenosis at the origin of the celiac artery. Superior mesenteric artery: Unremarkable. Inferior mesenteric artery: Unremarkable. Renal arteries: Unremarkable. PELVIC ARTERIES: Right Common Iliac: Coarse calcific plaque posterior aspect of the common iliac artery with mild stenosis. Right External Iliac: Unremarkable. Right Internal Iliac: Unremarkable. Left Common Iliac: Coarse calcific plaque origin left common iliac artery with mild stenosis. Left External Iliac: Unremarkable. Left Internal Iliac: Unremarkable. RIGHT LOWER EXTREMITY ARTERIES: Right Common Femoral: Unremarkable. Right Superficial Femoral: Unremarkable. Right Profunda Femoris: Moderate calcific plaque. Occlusion of the distal SFA. Below knee amputation. LEFT LOWER EXTREMITY ARTERIES: Left Common Femoral: Unremarkable. Left Superficial Femoral: Moderate calcific throughout the SFA with multiple areas of moderate to severe stenosis of the distal SFA extending the popliteal artery. Left Profunda Femoris: Mild calcific plaque in the profunda femoral artery without significant stenosis. Left Popliteal: There stenosis of popliteal artery Left Anterior Tibial: Occasion of anterior tibial artery along with moderate calcific plaque limits evaluation. Believed to be patent Left Tibioperoneal Trunk: Unremarkable. Left Posterior Tibial: Limited evaluation secondary to poor opacification. Believed to be patent. Left Peroneal: Possible occlusion of the mid and distal peroneal artery. Left Dorsalis pedis: Unremarkable. NON-ANGIOGRAPHIC ASPECT OF THE EXAM: LOWER THORAX: Unremarkable. LIVER: Unremarkable. No gross lesion or ductal dilatation. GALLBLADDER AND BILE DUCTS: Unremarkable. PANCREAS: Unremarkable. No gross lesion or ductal dilatation. SPLEEN: Unremarkable. ADRENALS: Unremarkable. No mass. KIDNEYS AND URETERS: Unremarkable. No hydronephrosis. No solid mass. STOMACH AND BOWEL: Limited evaluation of PO contrast. No obstruction. No gross mural thickening. APPENDIX: Normal appendix. PERITONEUM: Unremarkable. No free fluid. No free air. LYMPH NODES: Unremarkable. No enlarged lymph nodes. BLADDER: Unremarkable. REPRODUCTIVE: Unremarkable. BONES: No acute fracture. OTHER FINDINGS: None. IMPRESSION: CT ANGIOGRAM ABDOMEN/PELVIS: 1. Moderate plaque in the abdominal without significant stenosis. 2. Moderate stenosis of the origin of the celiac artery. 3. Coarse calcific plaque at the origin of both right and left common iliac arteries with mild stenosis. LEFT LOWER EXTREMITY CT ANGIOGRAM: 1. There is mild to severe stenosis of the mid and distal SFA extending the popliteal artery which has severe stenosis. 2. The common femoral and profunda femoral artery normal. 3. Evaluation of the tibial vessels is limited secondary to poor opacification and calcific plaque. The anterior tibial artery is believed to be patent. The posterior tibial is patent. The peroneal artery may be severely stenotic or occluded in the mid and distal segments. RIGHT LOWER EXTREMITY CT ANGIOGRAM 1. Below-knee amputation. 2. Common femoral artery profunda femoral artery normal.
[2018-09-17] MEDS ORDERED: (Novolog) Insulin Aspart, Recombinant 100 u/ml 10 ml vial SC ONE (12:00)
--- NOTE | 2018-09-17 12:15 | CP.PCM.PN ---
Subjective - Date & Time of Evaluation Date of Evaluation: 09/17/18 Time of Evaluation: 12:15 - Subjective Subjective: Podiatry Progress Note - Dr. Moralez 67M seen and evaluated at bedside for left foot ischemia. Patient resting comfortably, NAD. No acute events overnight. No new lower extremity complaints per patient. Denies n/f/d/c/sob/valenzuela/cp. For angio tomorrow with vascular. Objective - Vital Signs/Intake and Output Vital Signs (last 24 hours): Temp Pulse Resp BP Pulse Ox 98.5 F 60 20 162/67 H 97 09/17/18 08:00 09/17/18 08:00 09/17/18 08:00 09/17/18 09:48 09/17/18 08:00 Intake and Output: 09/17/18 09/17/18 06:59 18:59 Intake Total 940 760 Output Total 500 Balance 440 760 - Medications Medications: Current Medications Amlodipine Besylate (Norvasc) 10 mg PO DAILY [facility] Last Admin: 09/17/18 09:48 Dose: 10 mg Carvedilol (Coreg) 12.5 mg PO BID [facility] Last Admin: 09/17/18 09:48 Dose: 12.5 mg Clopidogrel Bisulfate (Plavix) 75 mg PO DAILY [facility] Last Admin: 09/17/18 09:48 Dose: 75 mg Folic Acid (Folic Acid) 1 mg PO DAILY [facility] Last Admin: 09/17/18 09:47 Dose: 1 mg Heparin Sodium (Porcine) (Heparin) 5,000 units SC Q12 [facility] Last Admin: 09/17/18 09:49 Dose: 5,000 units Sodium Chloride (Sodium Chloride 0.9%) 1,000 mls @ 80 mls/hr IV .[id number] [facility] Last Admin: 09/17/18 05:21 Dose: 80 mls/hr Insulin Aspart (Novolog) 0 unit SC ACHS [facility]; Protocol Last Admin: 09/17/18 12:08 Dose: 3 units Pantoprazole Sodium (Protonix Inj) 40 mg IVP DAILY [facility] Last Admin: 09/17/18 09:49 Dose: 40 mg Pregabalin (Lyrica) 50 mg PO BID [facility] Last Admin: 09/17/18 09:48 Dose: 50 mg Rosuvastatin Calcium (Crestor) 5 mg PO HS [facility] Last Admin: 09/16/18 21:28 Dose: 5 mg - Labs Labs: 09/16/18 10:19 09/16/18 10:19 PT 11.9 SECONDS (9.7-12.2) 09/16/18 11:36 INR 1.1 09/16/18 11:36 APTT 35 SECONDS (21-34) H 09/16/18 11:36 - Constitutional Appears: Non-toxic, No Acute Distress - Extremities Exam Additional comments: R BKA LLE focused: VASC: DP and PT pulses nonpalpable. CFT unable to assess. Temperature gradient warm to cool. Edema noted to digits. NEURO: Protective sensation absent. DERM: Ischemia/gangrenous changes noted to distal aspects of digits, superficial wound noted to medial aspect of hallucal tuft, no drainage, no purulence, no fluctuance, no malodor ORTHO: No pain on palpation present. - Neurological Exam Neurological Exam: Alert, Awake - Psychiatric Exam Psychiatric exam: Normal Affect, Normal Mood Assessment and Plan - Assessment and Plan (Free Text) Assessment: 67M with left foot ischemia 2/2 PVD Plan: Patient seen and evaluated alongside attending, Dr. Moralez Afebrile Left foot, tibfib XR: advanced atherosclerotic vascular calcifications Vascular, Dr. Iraheta consulted - angio tomorrow Podiatry will continue to follow
--- NOTE | 2018-09-17 13:44 | CP.PCM.CON ---
History of Present Illness - History of Present Illness History of Present Illness: 67M presents with left lower extremity ischemic discoloration in the toes with ulceration of toes, redness warmth and pain . Patient states the discoloration started several days ago. Poor historian states decreased sensation on left Denies feve ror chills has hx of right BKA ID consulted for this Denies fever chills PMH: DM, HTN, PVD PSH: R BKA, CABG Social: denies tobacco, alcohol or illicit drug use Allergies: NKDA Review of Systems - Review of Systems All systems: reviewed and no additional remarkable complaints except - Constitutional Constitutional: As Per HPI. absent: Chills, Fever - EENT Eyes: absent: As Per HPI, Blind Spots, Blurred Vision, Change in Vision, Decreased Night Vision, Diplopia, Discharge, Dry Eye, Exophthalmos, Floaters, Irritation, Itchy Eyes, Loss of Peripheral Vision, Pain, Photophobia, Requires Corrective Lenses, Sees Flashes, Spots in Vision, Tunnel Vision, Other Visual Disturbances, Loss of Vision, Other Ears: absent: As Per HPI, Decreased Hearing, Ear Discharge, Ear Pain, Tinnitus, Abnormal Hearing, Disequilibrium, Dizziness, Other Nose/Mouth/Throat: absent: As Per HPI, Epistaxis, Nasal Congestion, Nasal Discharge, Nasal Obstruction, Nasal Trauma, Nose Pain, Post Nasal Drip, Sinus Pain, Sinus Pressure, Bleeding Gums, Change in Voice, Dental Pain, Dry Mouth, Dysphagia, Halitosis, Hoarsness, Lip Swelling, Mouth Lesions, Mouth Pain, Odynophagia, Sore Throat, Throat Swelling, Tongue Swelling, Facial Pain, Neck Pain, Neck Mass, Other - Cardiovascular Cardiovascular: As Per HPI - Respiratory Respiratory: absent: As Per HPI, Cough, Dyspnea, Hemoptysis, Dyspnea on Exertion, Wheezing, Snoring, Stridor, Pain on Inspiration, Chest Congestion, Excessive Mucous Production, Change in Mucous Color, Pain with Coughing, Other - Gastrointestinal Gastrointestinal: absent: As Per HPI, Abdominal Pain, Belching, Bloating, Change in Bowel Habits, Change in Stool Character, Coffee Ground Emesis, Constipation, Cramping, Diarrhea, Dyspepsia, Dysphagia, Early Satiety, Excessive Flatus, Fecal Incontinence, Heartburn, Hematemesis, Hematochezia, Loose Stools, Melena, Naus ea, Odynophagia, Temesmus, Vomiting, Other - Genitourinary Genitourinary: absent: As Per HPI, Change in Urinary Stream, Difficulty Urinating, Dysuria, Flank Pain, Hematuria, Pyuria, Nocturia, Urinary Incontinence, Urinary Frequency, Urinary Hesitance, Urinary Urgency, Voiding Freq/Small Amts, Freq UTI, Hx Renal/Bladder Calculi, Hx /Renal Surgery, Bladder Distension, Other - Musculoskeletal Musculoskeletal: As Per HPI - Integumentary Integumentary: As Per HPI, Skin Pain, Wounds - Neurological Neurological: As Per HPI - Psychiatric Psychiatric: absent: As Per HPI, Abnormal Sleep Pattern, Anhedonia, Anxiety, Auditory Hallucinations, Behavioral Changes, Change in Appetite, Change in Libido, Confusion, Depression, Difficulty Concentrating, Hallucinations, Homicidal Ideation, Hopelessness, Irritability, Memory Loss, Mood Swings, Panic Attacks, Paranoia, Suicidal Ideation, Visual Hallucinations, Tactile Hallucinations, Other - Endocrine Endocrine: As Per HPI - Hematologic/Lymphatic Hematologic: absent: As Per HPI, Easy Bleeding, Easy Bruising, Lymphadenopathy, Other 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 - HEENT Hx HEENT Problems: Yes Hx Blind: Yes (RIGHT EYE) Hx Deafness: Yes (RIGHT EAR) - RENAL Hx Chronic Kidney Disease: Yes (BORDERLINE) - ENDOCRINE/METABOLIC Hx Diabetes Mellitus Type 2: Yes - HEMATOLOGICAL/ONCOLOGICAL Hx Blood Disorders: No Hx Blood Transfusions: (MAYBE) - INTEGUMENTARY Hx Dermatological Problems: Yes Other/Comment: ULCERS LEFT FOOT HEEL; left foot ischemic digits - MUSCULOSKELETAL/RHEUMATOLOGICAL Hx Fractures: Yes (RIGHT ARM CHILDHOOD) - GASTROINTESTINAL Hx Gastrointestinal Disorders: Yes Hx Gastroesophageal Reflux: Yes - GENITOURINARY/GYNECOLOGICAL Hx Genitourinary Disorders: No - PSYCHIATRIC Hx Substance Use: No - SURGICAL HISTORY Hx Coronary Artery Bypass Graft: Yes Hx Coronary Stent: Yes (2003) - ANESTHESIA Hx Anesthesia: Yes Hx Anesthesia Reactions: No Hx Malignant Hyperthermia: No Meds Allergies/Adverse Reactions: Allergies Allergy/AdvReac Type Severity Reaction Status Date / Time No Known Allergies Allergy Verified 08/11/15 09:42 - Medications Medications: Current Medications Amlodipine Besylate (Norvasc) 10 mg PO DAILY [facility] Last Admin: 09/17/18 09:48 Dose: 10 mg Carvedilol (Coreg) 12.5 mg PO BID [facility] Last Admin: 09/17/18 09:48 Dose: 12.5 mg Clopidogrel Bisulfate (Plavix) 75 mg PO DAILY [facility] Last Admin: 09/17/18 09:48 Dose: 75 mg Folic Acid (Folic Acid) 1 mg PO DAILY [facility] Last Admin: 09/17/18 09:47 Dose: 1 mg Heparin Sodium (Porcine) (Heparin) 5,000 units SC Q12 [facility] Last Admin: 09/17/18 09:49 Dose: 5,000 units Sodium Chloride (Sodium Chloride 0.9%) 1,000 mls @ 80 mls/hr IV .[id number] [facility] Last Admin: 09/17/18 05:21 Dose: 80 mls/hr Insulin Aspart (Novolog) 0 unit SC ACHS [facility]; Protocol Last Admin: 09/17/18 12:08 Dose: 3 units Pantoprazole Sodium (Protonix Inj) 40 mg IVP DAILY [facility] Last Admin: 09/17/18 09:49 Dose: 40 mg Pregabalin (Lyrica) 50 mg PO BID [facility] Last Admin: 09/17/18 09:48 Dose: 50 mg Rosuvastatin Calcium (Crestor) 5 mg PO HS [facility] Last Admin: 09/16/18 21:28 Dose: 5 mg Physical Exam - Constitutional Appears: Non-toxic, Cachectic, Chronically Ill - Head Exam Head Exam: ATRAUMATIC, NORMAL INSPECTION, NORMOCEPHALIC - Eye Exam Eye Exam: PERRL. absent: Scleral icterus Pupil Exam: NORMAL ACCOMODATION - ENT Exam ENT Exam: Mucous Membranes Dry, Normal Oropharynx - Neck Exam Neck exam: Negative for: Lymphadenopathy - Respiratory Exam Respiratory Exam: Decreased Breath Sounds, Clear to Auscultation Bilateral, Prolonged Expiratory Phase - Cardiovascular Exam Cardiovascular Exam: REGULAR RHYTHM, +S1, +S2 - GI/Abdominal Exam GI & Abdominal Exam: Diminished Bowel Sounds, Soft. absent: Tenderness - Rectal Exam Rectal Exam: Deferred - Exam Exam: NORMAL INSPECTION - Extremities Exam Extremities exam: Positive for: pedal edema, tenderness. Negative for: calf tenderness, pedal pulses present Additional comments: right BKA Left foot cool with decreased pulses and ischemnic changes of toes - Back Exam Back exam: absent: CVA tenderness (L), CVA tenderness (R), paraspinal tenderness - Neurological Exam Neurological exam: Alert, CN II-XII Intact, Oriented x3, Reflexes Normal - Psychiatric Exam Psychiatric exam: Depressed - Skin Skin Exam: Dry, Mottled Results - Vital Signs Recent Vital Signs: Last Vital Signs Temp 98.5 F 09/17/18 08:00 Pulse 60 09/17/18 08:00 Resp 20 09/17/18 08:00 BP 162/67 H 09/17/18 09:48 Pulse Ox 97 09/17/18 08:00 - Labs Result Diagrams: 09/16/18 10:19 09/16/18 10:19 Labs: Laboratory Results - last 24 hr 09/16/18 09/16/18 09/17/18 16:22 21:06 07:14 POC Glucose (mg/dL) 422 H* 383 H 187 H 09/17/18 11:27 POC Glucose (mg/dL) 239 H Assessment & Plan (1) CHF (congestive heart failure) Status: Acute (2) PVD (peripheral vascular disease) Status: Acute (3) Foot ulcer, left Status: Acute (4) Hx of right BKA Status: Acute (5) CAD (coronary artery disease) Status: Acute (6) Hx of CABG Status: Acute (7) DMII (diabetes mellitus, type 2) Status: Acute - Assessment and Plan (Free Text) Assessment: vascular eval in progress check cultures cont iv antibiotics wound care
[2018-09-17] MEDS: Piperacill/Tazo 2.25gm in Dex 2.25 GM/50 ML BAG IVPB SCH ×2 (16:53→21:22)
--- NOTE | 2018-09-17 17:18 | CP.PCM.PN ---
Subjective - Date & Time of Evaluation Date of Evaluation: 09/17/18 Time of Evaluation: 08:45 - Subjective Subjective: clinically same Objective - Vital Signs/Intake and Output Vital Signs (last 24 hours): Temp Pulse Resp BP Pulse Ox 98.1 F 60 20 144/68 98 09/17/18 15:00 09/17/18 15:00 09/17/18 15:00 09/17/18 15:00 09/17/18 15:00 Intake and Output: 09/17/18 09/17/18 06:59 18:59 Intake Total 940 1900 Output Total 500 Balance 440 1900 - Medications Medications: Current Medications Amlodipine Besylate (Norvasc) 10 mg PO DAILY [facility] Last Admin: 09/17/18 09:48 Dose: 10 mg Carvedilol (Coreg) 12.5 mg PO BID [facility] Last Admin: 09/17/18 09:48 Dose: 12.5 mg Clopidogrel Bisulfate (Plavix) 75 mg PO DAILY [facility] Last Admin: 09/17/18 09:48 Dose: 75 mg Folic Acid (Folic Acid) 1 mg PO DAILY [facility] Last Admin: 09/17/18 09:47 Dose: 1 mg Heparin Sodium (Porcine) (Heparin) 5,000 units SC Q12 [facility] Last Admin: 09/17/18 09:49 Dose: 5,000 units Sodium Chloride (Sodium Chloride 0.9%) 1,000 mls @ 80 mls/hr IV .[id number] [facility] Last Admin: 09/17/18 15:00 Dose: Not Given Piperacillin Sod/Tazobactam Sod (Zosyn 2.25 Gm Iv Premix) 2.25 gm in 50 mls @ 100 mls/hr IVPB Q6H [facility]; Protocol Last Admin: 09/17/18 16:53 Dose: 100 mls/hr Insulin Aspart (Novolog) 0 unit SC ACHS [facility]; Protocol Last Admin: 09/17/18 16:53 Dose: Not Given Pantoprazole Sodium (Protonix Inj) 40 mg IVP DAILY [facility] Last Admin: 09/17/18 09:49 Dose: 40 mg Pregabalin (Lyrica) 50 mg PO BID [facility] Last Admin: 09/17/18 09:48 Dose: 50 mg Rosuvastatin Calcium (Crestor) 5 mg PO HS [facility] Last Admin: 09/16/18 21:28 Dose: 5 mg - Labs Labs: 09/16/18 10:19 09/16/18 10:19 PT 11.9 SECONDS (9.7-12.2) 09/16/18 11:36 INR 1.1 09/16/18 11:36 APTT 35 SECONDS (21-34) H 09/16/18 11:36
--- NOTE | 2018-09-17 21:58 | CARD ---
APPROVED REPORT Date of service: 09/16/2018 EKG Measurement Heart [id number] <Conclusion> Normal sinus rhythm Normal ECG
[2018-09-18] MEDS: Sodium Chloride 0.9% 1,000 ML IV SCH ×4 (00:16→23:43)
[2018-09-18] MEDS: Piperacill/Tazo 2.25gm in Dex 2.25 GM/50 ML BAG IVPB SCH ×4 (03:53→22:26)
[2018-09-18 06:21] LABS: HEMOGLOBIN 10.7 g/dL (12.0-18.0); MEAN CELL VOLUME 84.8 fL (80.0-94.0); MEAN CORPUSCULAR HEMOGLOBIN 28.1 pg (27.0-31.0); MEAN CORPUSCULAR HGB CONC 33.2 g/dL (33.0-37.0); MEAN PLATELET VOLUME 10.8 fL (7.2-11.7); RBC 3.82 Mil/uL (4.40-5.90); RED CELL DISTRIBUTION WIDTH 15.1 % (11.5-14.5)
[2018-09-18 06:47] LABS: CALCIUM 8.1 mg/dl (8.6-10.4)
[2018-09-18] MEDS: (Novolog) Insulin Aspart, Recombinant 100 u/ml 10 ml vial SC SCH ×6 (08:28→22:30)
[2018-09-18] MEDS ORDERED: Acetylcysteine 20% Inhal Soln (4ml) PO STA (09:29)
[2018-09-18] MEDS ORDERED: Iodixanol 320 MG/ML 200 ML BOTTLE IV ONE (09:38)
[2018-09-18] MEDS ORDERED: Iodixanol 320 MG/ML 100 ML BOTTLE IV ONE (09:38)
[2018-09-18] MEDS ORDERED: Propofol 10 mg/ml Inj (20 ML) ONE (10:02)
[2018-09-18] MEDS ORDERED: Midazolam 2 MG/2 ML VIAL ONE (10:03)
[2018-09-18] MEDS ORDERED: Lidocaine 2% MPF (5 ml) Inj ONE (10:04)
--- NOTE | 2018-09-18 10:58 | PCM.SURG1 ---
Surgeon's Initial Post Op Note - Surgeon's Notes Surgeon: terrance [employer] Managing Editor: 0 Type of Anesthesia: IV Sedation Anesthesia Administered By: brionna Pre-Operative Diagnosis: gangrene of left foot Operative Findings: severe tibial disease-pedal disease. diffuse disease dital sfa.pop. dilated with 4 mm balloon Post-Operative Diagnosis: same Operation Performed: aortofemoral angiogram via right groin selective catherization of left femoral artery. balloon angioplasty of distal sfa/popliteal. manual compression right groin Specimen/Specimens Removed: 0 Estimated Blood Loss: EBL {In ML}: 5 Blood Products Given: N/A Drains Used: No Drains Post-Op Condition: Good Date of Surgery/Procedure: 09/18/18 Time of Surgery/Procedure: 11:00
[2018-09-18] MEDS: Dextrose 5%/0.45% NS 1,000 ML IV SCH ×2 (12:11→21:50)
--- NOTE | 2018-09-18 19:14 | CP.PCM.PN ---
Subjective - Date & Time of Evaluation Date of Evaluation: 09/18/18 Time of Evaluation: 08:00 - Subjective Subjective: s/p angioplasty tolerated well Objective - Vital Signs/Intake and Output Vital Signs (last 24 hours): Temp Pulse Resp BP Pulse Ox 99.3 F 83 20 146/59 L 100 09/18/18 17:57 09/18/18 16:00 09/18/18 16:00 09/18/18 18:01 09/18/18 18:36 - Medications Medications: Current Medications Acetaminophen (Tylenol 325mg Tab) 650 mg PO Q6 PRN PRN Reason: Fever >100.4 F Last Admin: 09/18/18 16:57 Dose: 650 mg Amlodipine Besylate (Norvasc) 10 mg PO DAILY [facility] Last Admin: 09/18/18 10:46 Dose: Not Given Carvedilol (Coreg) 12.5 mg PO BID [facility] Last Admin: 09/18/18 18:01 Dose: 12.5 mg Clopidogrel Bisulfate (Plavix) 75 mg PO DAILY [facility] Last Admin: 09/18/18 10:46 Dose: Not Given Famotidine (Pepcid) 20 mg PO DAILY [facility] Folic Acid (Folic Acid) 1 mg PO DAILY [facility] Last Admin: 09/18/18 10:45 Dose: Not Given Heparin Sodium (Porcine) (Heparin) 5,000 units SC Q12 [facility] Last Admin: 09/18/18 10:45 Dose: Not Given Sodium Chloride (Sodium Chloride 0.9%) 1,000 mls @ 80 mls/hr IV .[id number] [facility] Last Admin: 09/18/18 18:40 Dose: Not Given Piperacillin Sod/Tazobactam Sod (Zosyn 2.25 Gm Iv Premix) 2.25 gm in 50 mls @ 100 mls/hr IVPB Q6H [facility]; Protocol Last Admin: 09/18/18 16:58 Dose: 100 mls/hr Dextrose/Sodium Chloride (Dextrose 5%/0.45% Ns 1000 Ml) 1,000 mls @ 110 mls/hr IV .[id number] [facility] Last Admin: 09/18/18 12:11 Dose: Not Given Insulin Aspart (Novolog) 0 unit SC ACHS [facility]; Protocol Last Admin: 09/18/18 12:11 Dose: Not Given Pregabalin (Lyrica) 50 mg PO BID [facility] Last Admin: 09/18/18 18:01 Dose: 50 mg Rosuvastatin Calcium (Crestor) 5 mg PO HS [facility] Last Admin: 09/17/18 21:24 Dose: 5 mg - Labs Labs: 09/18/18 06:09 09/18/18 06:09 PT 11.9 SECONDS (9.7-12.2) 09/16/18 11:36 INR 1.1 09/16/18 11:36 APTT 35 SECONDS (21-34) H 09/16/18 11:36 - Constitutional Appears: Non-toxic, Cachectic, Chronically Ill - Head Exam Head Exam: NORMOCEPHALIC - Eye Exam Eye Exam: absent: Scleral icterus Pupil Exam: NORMAL ACCOMODATION - ENT Exam ENT Exam: Mucous Membranes Dry - Neck Exam Neck Exam: absent: Lymphadenopathy - Respiratory Exam Respiratory Exam: Decreased Breath Sounds - Cardiovascular Exam Cardiovascular Exam: REGULAR RHYTHM - GI/Abdominal Exam GI & Abdominal Exam: Distended, Soft - Rectal Exam Rectal Exam: Deferred - Exam Exam: NORMAL INSPECTION - Extremities Exam Extremities Exam: Pedal Edema Additional comments: right BKA left foot with ischemic toes/ cellulitis - Back Exam Back Exam: absent: CVA tenderness (R) - Neurological Exam Neurological Exam: Alert, Awake Assessment and Plan (1) CHF (congestive heart failure) Status: Acute (2) PVD (peripheral vascular disease) Status: Acute (3) Foot ulcer, left Status: Acute (4) Hx of right BKA Status: Acute (5) CAD (coronary artery disease) Status: Acute (6) Hx of CABG Status: Acute (7) DMII (diabetes mellitus, type 2) Status: Acute
[2018-09-18] MEDS ORDERED: (Lantus) Insulin Glargine, Recombinant SC ONE (21:55)
--- NOTE | 2018-09-18 22:42 | CP.PCM.PN ---
Subjective - Date & Time of Evaluation Date of Evaluation: 09/18/18 Time of Evaluation: 12:00 - Subjective Subjective: Podiatry Progress Note - Dr. Moralez 67M seen and evaluated for left foot ischemia. Patient s/p angioplasty, tolerated well. No new complaints to left foot. Denies n/f/d/c/sob/valenzuela/cp. Objective - Vital Signs/Intake and Output Vital Signs (last 24 hours): Temp Pulse Resp BP Pulse Ox 98.3 F 83 20 146/59 L 100 09/18/18 22:15 09/18/18 16:00 09/18/18 16:00 09/18/18 18:01 09/18/18 22:12 - Medications Medications: Current Medications Acetaminophen (Tylenol 325mg Tab) 650 mg PO Q6 PRN PRN Reason: Fever >100.4 F Last Admin: 09/18/18 16:57 Dose: 650 mg Amlodipine Besylate (Norvasc) 10 mg PO DAILY [facility] Last Admin: 09/18/18 10:46 Dose: Not Given Carvedilol (Coreg) 12.5 mg PO BID [facility] Last Admin: 09/18/18 18:01 Dose: 12.5 mg Clopidogrel Bisulfate (Plavix) 75 mg PO DAILY [facility] Last Admin: 09/18/18 10:46 Dose: Not Given Famotidine (Pepcid) 20 mg PO DAILY [facility] Folic Acid (Folic Acid) 1 mg PO DAILY [facility] Last Admin: 09/18/18 10:45 Dose: Not Given Heparin Sodium (Porcine) (Heparin) 5,000 units SC Q12 [facility] Last Admin: 09/18/18 22:27 Dose: 5,000 units Sodium Chloride (Sodium Chloride 0.9%) 1,000 mls @ 80 mls/hr IV .[id number] [facility] Last Admin: 09/18/18 18:40 Dose: Not Given Piperacillin Sod/Tazobactam Sod (Zosyn 2.25 Gm Iv Premix) 2.25 gm in 50 mls @ 100 mls/hr IVPB Q6H [facility]; Protocol Last Admin: 09/18/18 22:26 Dose: 100 mls/hr Insulin Aspart (Novolog) 0 unit SC ACHS [facility]; Protocol Last Admin: 09/18/18 22:26 Dose: 3 units Pregabalin (Lyrica) 50 mg PO BID [facility] Last Admin: 09/18/18 18:01 Dose: 50 mg Rosuvastatin Calcium (Crestor) 5 mg PO HS [facility] Last Admin: 09/18/18 22:27 Dose: 5 mg - Labs Labs: 09/18/18 06:09 09/18/18 06:09 PT 11.9 SECONDS (9.7-12.2) 09/16/18 11:36 INR 1.1 09/16/18 11:36 APTT 35 SECONDS (21-34) H 09/16/18 11:36 - Constitutional Appears: Non-toxic, No Acute Distress - Extremities Exam Additional comments: R BKA LLE focused: VASC: DP and PT pulses nonpalpable. CFT unable to assess. Temperature gradient warm to cool. Edema noted to digits. NEURO: Protective sensation absent. DERM: Ischemia/gangrenous changes noted to distal aspects of digits, superficial wound noted to medial aspect of hallucal tuft, no drainage, no purulence, no fluctuance, no malodor ORTHO: No pain on palpation present. - Neurological Exam Neurological Exam: Alert, Awake - Psychiatric Exam Psychiatric exam: Normal Affect, Normal Mood Assessment and Plan - Assessment and Plan (Free Text) Assessment: 67M with left foot ischemia 2/2 PVD Plan: Patient seen and evaluated Discussed with attending, Dr. Kirt FLORES, WBC 6.0 Left foot, tibfib XR: advanced atherosclerotic vascular calcifications Vascular, Dr. Iraheta consulted - patient s/p angioplasty; f/u recs Podiatry will continue to follow
[2018-09-19] MEDS: Piperacill/Tazo 2.25gm in Dex 2.25 GM/50 ML BAG IVPB SCH ×4 (03:37→21:36)
[2018-09-19 07:05] LABS: BASO % 0.4 % (0.0-2.0); EOS # 0.1 K/uL (0.0-0.7); EOS % 2.5 % (0.0-4.0); HEMOGLOBIN 9.7 g/dL (12.0-18.0); LYMPH # 0.8 K/uL (1.0-4.3); LYMPH % 15.3 % (20.0-40.0); MEAN CELL VOLUME 85.3 fL (80.0-94.0); MEAN CORPUSCULAR HEMOGLOBIN 28.2 pg (27.0-31.0); MEAN CORPUSCULAR HGB CONC 33.1 g/dL (33.0-37.0); MEAN PLATELET VOLUME 11.1 fL (7.2-11.7); MONO # 0.4 K/uL (0.0-0.8); MONO % 7.4 % (0.0-10.0); NEUT # 4.1 K/uL (1.8-7.0); NEUT % 74.4 % (50.0-75.0); RBC 3.44 Mil/uL (4.40-5.90); RED CELL DISTRIBUTION WIDTH 14.9 % (11.5-14.5); WHITE BLOOD COUNT 5.5 K/uL (4.8-10.8)
[2018-09-19 07:19] LABS: ALB/GLOB RATIO 1.2 (1.0-2.1); ALBUMIN 3.1 g/dL (3.5-5.0)
--- NOTE | 2018-09-19 08:18 | CP.PCM.PN ---
Subjective - Date & Time of Evaluation Date of Evaluation: 09/19/18 Time of Evaluation: 07:00 - Subjective Subjective: Progress note for Dr. Iraheta. Patient seen and examined at bedside. POD 1 s/p aortofemoral angiogram with balloon angioplasty of distal sfa/popliteal. No acute events overnight. Patient denies pain, fever, chills, nausea, vomiting. Objective - Vital Signs/Intake and Output Vital Signs (last 24 hours): Temp Pulse Resp BP Pulse Ox 98.3 F 70 20 152/60 H 95 09/19/18 00:00 09/19/18 00:00 09/19/18 00:00 09/19/18 00:00 09/19/18 00:00 Intake and Output: 09/19/18 09/19/18 06:59 18:59 Intake Total 1760 Balance 1760 - Medications Medications: Current Medications Acetaminophen (Tylenol 325mg Tab) 650 mg PO Q6 PRN PRN Reason: Fever >100.4 F Last Admin: 09/18/18 16:57 Dose: 650 mg Amlodipine Besylate (Norvasc) 10 mg PO DAILY [facility] Last Admin: 09/18/18 10:46 Dose: Not Given Carvedilol (Coreg) 12.5 mg PO BID [facility] Last Admin: 09/18/18 18:01 Dose: 12.5 mg Clopidogrel Bisulfate (Plavix) 75 mg PO DAILY [facility] Last Admin: 09/18/18 10:46 Dose: Not Given Famotidine (Pepcid) 20 mg PO DAILY [facility] Folic Acid (Folic Acid) 1 mg PO DAILY [facility] Last Admin: 09/18/18 10:45 Dose: Not Given Heparin Sodium (Porcine) (Heparin) 5,000 units SC Q12 [facility] Last Admin: 09/18/18 22:27 Dose: 5,000 units Piperacillin Sod/Tazobactam Sod (Zosyn 2.25 Gm Iv Premix) 2.25 gm in 50 mls @ 100 mls/hr IVPB Q6H [facility]; Protocol Last Admin: 09/19/18 03:37 Dose: 100 mls/hr Sodium Chloride (Sodium Chloride 0.9%) 1,000 mls @ 80 mls/hr IV .[id number] [facility] Last Admin: 09/18/18 23:43 Dose: 80 mls/hr Insulin Aspart (Novolog) 0 unit SC ACHS [facility]; Protocol Last Admin: 09/18/18 22:30 Dose: Not Given Pregabalin (Lyrica) 50 mg PO BID [facility] Last Admin: 09/18/18 18:01 Dose: 50 mg Rosuvastatin Calcium (Crestor) 5 mg PO HS [facility] Last Admin: 09/18/18 22:27 Dose: 5 mg - Labs Labs: 09/19/18 06:51 09/19/18 06:51 PT 11.9 SECONDS (9.7-12.2) 09/16/18 11:36 INR 1.1 09/16/18 11:36 APTT 35 SECONDS (21-34) H 09/16/18 11:36 - Constitutional Appears: Non-toxic, No Acute Distress - Head Exam Head Exam: ATRAUMATIC, NORMOCEPHALIC - Eye Exam Eye Exam: Normal appearance - ENT Exam ENT Exam: Mucous Membranes Moist - Neck Exam Neck Exam: Normal Inspection - Respiratory Exam Respiratory Exam: NORMAL BREATHING PATTERN - Extremities Exam Additional comments: R groin with dressing c/d/i, no active bleeding, palpable femoral pulse, small hematoma. - Neurological Exam Neurological Exam: Alert, Awake - Psychiatric Exam Psychiatric exam: Normal Affect - Skin Skin Exam: Normal Color Additional comments: left lower extremity ulcers in all toes and lower leg Assessment and Plan - Assessment and Plan (Free Text) Assessment: POD 1 s/p aortofemoral angiogram with balloon angioplasty of distal sfa/popliteal Plan: -VSS -R groin access site healing well -Stable from surgical standpoint -Reconsult as necessary Further recs as per Dr. Esequiel Rosario, PGY-1
[2018-09-19] MEDS: (Novolog) Insulin Aspart, Recombinant 100 u/ml 10 ml vial SC SCH ×5 (08:28→21:37)
--- NOTE | 2018-09-19 08:38 | CP.PCM.PN ---
Subjective - Date & Time of Evaluation Date of Evaluation: 09/19/18 Time of Evaluation: 08:38 - Subjective Subjective: cr up to 1,8 despite hydration Objective - Vital Signs/Intake and Output Vital Signs (last 24 hours): Temp Pulse Resp BP Pulse Ox 98.7 F 60 20 161/61 H 98 09/19/18 07:00 09/19/18 07:00 09/19/18 07:00 09/19/18 07:00 09/19/18 07:00 Intake and Output: 09/19/18 09/19/18 06:59 18:59 Intake Total 1760 Balance 1760 - Medications Medications: Current Medications Acetaminophen (Tylenol 325mg Tab) 650 mg PO Q6 PRN PRN Reason: Fever >100.4 F Last Admin: 09/18/18 16:57 Dose: 650 mg Amlodipine Besylate (Norvasc) 10 mg PO DAILY [facility] Last Admin: 09/18/18 10:46 Dose: Not Given Carvedilol (Coreg) 12.5 mg PO BID [facility] Last Admin: 09/18/18 18:01 Dose: 12.5 mg Clopidogrel Bisulfate (Plavix) 75 mg PO DAILY [facility] Last Admin: 09/18/18 10:46 Dose: Not Given Famotidine (Pepcid) 20 mg PO DAILY [facility] Folic Acid (Folic Acid) 1 mg PO DAILY [facility] Last Admin: 09/18/18 10:45 Dose: Not Given Heparin Sodium (Porcine) (Heparin) 5,000 units SC Q12 [facility] Last Admin: 09/18/18 22:27 Dose: 5,000 units Piperacillin Sod/Tazobactam Sod (Zosyn 2.25 Gm Iv Premix) 2.25 gm in 50 mls @ 100 mls/hr IVPB Q6H [facility]; Protocol Last Admin: 09/19/18 03:37 Dose: 100 mls/hr Sodium Chloride (Sodium Chloride 0.9%) 1,000 mls @ 80 mls/hr IV .[id number] [facility] Last Admin: 09/18/18 23:43 Dose: 80 mls/hr Insulin Aspart (Novolog) 0 unit SC ACHS [facility]; Protocol Last Admin: 09/19/18 08:28 Dose: 2 units Pregabalin (Lyrica) 50 mg PO BID [facility] Last Admin: 09/18/18 18:01 Dose: 50 mg Rosuvastatin Calcium (Crestor) 5 mg PO HS [facility] Last Admin: 09/18/18 22:27 Dose: 5 mg - Labs Labs: 09/19/18 06:51 09/19/18 06:51 PT 11.9 SECONDS (9.7-12.2) 09/16/18 11:36 INR 1.1 09/16/18 11:36 APTT 35 SECONDS (21-34) H 09/16/18 11:36
--- NOTE | 2018-09-19 10:10 | CP.PCM.PN ---
Subjective - Date & Time of Evaluation Date of Evaluation: 09/19/18 Time of Evaluation: 10:09 - Subjective Subjective: Podiatry Progress Note - Dr. Moralez 67M seen and evaluated for left foot ischemia. Patient s/p angioplasty, tolerated well. No new complaints to left foot. Denies n/f/d/c/sob/valenzuela/cp. Objective - Vital Signs/Intake and Output Vital Signs (last 24 hours): Temp Pulse Resp BP Pulse Ox 98.7 F 60 20 161/61 H 98 09/19/18 07:00 09/19/18 07:00 09/19/18 07:00 09/19/18 09:22 09/19/18 07:00 Intake and Output: 09/19/18 09/19/18 06:59 18:59 Intake Total 1760 Balance 1760 - Medications Medications: Current Medications Acetaminophen (Tylenol 325mg Tab) 650 mg PO Q6 PRN PRN Reason: Fever >100.4 F Last Admin: 09/18/18 16:57 Dose: 650 mg Amlodipine Besylate (Norvasc) 10 mg PO DAILY [facility] Last Admin: 09/19/18 09:22 Dose: 10 mg Carvedilol (Coreg) 12.5 mg PO BID [facility] Last Admin: 09/19/18 09:22 Dose: 12.5 mg Clopidogrel Bisulfate (Plavix) 75 mg PO DAILY [facility] Last Admin: 09/19/18 09:22 Dose: 75 mg Famotidine (Pepcid) 20 mg PO DAILY [facility] Last Admin: 09/19/18 09:22 Dose: 20 mg Folic Acid (Folic Acid) 1 mg PO DAILY [facility] Last Admin: 09/19/18 09:22 Dose: 1 mg Heparin Sodium (Porcine) (Heparin) 5,000 units SC Q12 [facility] Last Admin: 09/19/18 09:21 Dose: 5,000 units Piperacillin Sod/Tazobactam Sod (Zosyn 2.25 Gm Iv Premix) 2.25 gm in 50 mls @ 100 mls/hr IVPB Q6H [facility]; Protocol Last Admin: 09/19/18 09:23 Dose: 100 mls/hr Sodium Chloride (Sodium Chloride 0.9%) 1,000 mls @ 80 mls/hr IV .[id number] [facility] Last Admin: 09/18/18 23:43 Dose: 80 mls/hr Insulin Aspart (Novolog) 0 unit SC ACHS [facility]; Protocol Last Admin: 09/19/18 08:28 Dose: 2 units Pregabalin (Lyrica) 50 mg PO BID [facility] Last Admin: 09/19/18 09:22 Dose: 50 mg Rosuvastatin Calcium (Crestor) 5 mg PO HS [facility] Last Admin: 09/18/18 22:27 Dose: 5 mg - Labs Labs: 09/19/18 06:51 09/19/18 06:51 PT 11.9 SECONDS (9.7-12.2) 09/16/18 11:36 INR 1.1 09/16/18 11:36 APTT 35 SECONDS (21-34) H 09/16/18 11:36 - Constitutional Appears: Well, Non-toxic - Head Exam Head Exam: ATRAUMATIC - Extremities Exam Additional comments: R BKA LLE focused: VASC: DP and PT pulses nonpalpable. CFT unable to assess. Temperature gradient warm to cool. Edema noted to digits. NEURO: Protective sensation absent. DERM: Ischemia/gangrenous changes noted to distal aspects of digits, superficial wound noted to medial aspect of hallucal tuft, no drainage, no purulence, no fluctuance, no malodor ORTHO: No pain on palpation present Assessment and Plan - Assessment and Plan (Free Text) Assessment: 67M with left foot ischemia 2/2 PVD Plan: Patient seen and evaluated Discussed with attending, Dr. Kirt FLORES, WBC 6.0 Left foot, tibfib XR: advanced atherosclerotic vascular calcifications Vascular, Dr. Iraheta consulted - patient s/p angioplasty; f/u recs Podiatry will continue to follow; patient to remain in the hospital for the weekend for IV antibiotics
[2018-09-19] MEDS: Sodium Chloride 0.9% 1,000 ML IV SCH (12:00)
[2018-09-19] MEDS: Pantoprazole 40 mg EC Tab PO SCH (13:48)
--- NOTE | 2018-09-19 14:21 | VAS ---
DATE: 09/18/2018 PREOPERATIVE DIAGNOSIS: Gangrene, left foot. PROCEDURE CARRIED OUT: Aortofemoral angiogram via right groin with selective catheterization of left femoral artery, balloon angioplasty of left distal superficial femoral artery and popliteal artery using a 4 mm balloon. SURGEON: Tavon Iraheta Jr., MD METAL BONDER: None. ANESTHESIOLOGIST: Dr. Ward. INDICATIONS: The patient is a 67-year-old man with previous right below-knee amputation, presents with ischemic ulceration of the foot. OPERATIVE FINDINGS: The aorta and renal arteries were free of significant occlusive disease. The iliac arteries, common internal, common femoral arteries, proximal portion of the superficial femoral arteries were widely patent. On the right side, there was a previous below-knee amputation. On the left side, there was diffuse disease throughout the distal SFA and popliteal. All 3 tibial vessels were patent. The distal portion in the below knee ankle did not show marcelina named vessels except for a very small diminutive dorsalis pedis artery. There were numerous collaterals. Subsequent to the performance of diagnostic arteriogram, a stiff-angle guidewire was advanced over the aortic bifurcation, and a 6-German sheath was positioned in the distal SFA. Using roadmapping techniques, we were able to cross the lesion uneventfully. We dilated this with 4 mm balloon in two locations, in the distal SFA and popliteal. This resulted in some improvement and cosmetic improvement. Subsequent films confirmed that there was no dissection or other abnormalities detected here. The procedure was then terminated and pressure was applied to the groin. OPERATION CARRIED OUT: Aortofemoral angiogram via right groin with selective catheterization of left femoral artery, balloon angioplasty using a 4 mm balloon at the distal superficial femoral artery and popliteal artery. The primary problem is with pedal circulation below the ankle. In addition, because of the slight elevation of the patient's creatinine, dye was used throughout the procedure and approximately 65 mL of dye was used for the procedure. Tavon Iraheta Jr., MD [facility]ITALAlyssa
--- NOTE | 2018-09-19 16:51 | CP.PCM.PN ---
Subjective - Date & Time of Evaluation Date of Evaluation: 09/19/18 Time of Evaluation: 08:00 - Subjective Subjective: c/o nausea had angioplasty yest tolerated well IV rx in progress Objective - Vital Signs/Intake and Output Vital Signs (last 24 hours): Temp Pulse Resp BP Pulse Ox 98.7 F 60 20 161/61 H 100 09/19/18 07:00 09/19/18 07:00 09/19/18 07:00 09/19/18 09:22 09/19/18 12:32 Intake and Output: 09/19/18 09/19/18 06:59 18:59 Intake Total 1760 1130 Balance 1760 1130 - Medications Medications: Current Medications Acetaminophen (Tylenol 325mg Tab) 650 mg PO Q6 PRN PRN Reason: Fever >100.4 F Last Admin: 09/18/18 16:57 Dose: 650 mg Amlodipine Besylate (Norvasc) 10 mg PO DAILY [facility] Last Admin: 09/19/18 09:22 Dose: 10 mg Carvedilol (Coreg) 12.5 mg PO BID [facility] Last Admin: 09/19/18 09:22 Dose: 12.5 mg Clopidogrel Bisulfate (Plavix) 75 mg PO DAILY [facility] Last Admin: 09/19/18 09:22 Dose: 75 mg Folic Acid (Folic Acid) 1 mg PO DAILY [facility] Last Admin: 09/19/18 09:22 Dose: 1 mg Heparin Sodium (Porcine) (Heparin) 5,000 units SC Q12 [facility] Last Admin: 09/19/18 09:21 Dose: 5,000 units Piperacillin Sod/Tazobactam Sod (Zosyn 2.25 Gm Iv Premix) 2.25 gm in 50 mls @ 100 mls/hr IVPB Q6H [facility]; Protocol Last Admin: 09/19/18 09:23 Dose: 100 mls/hr Sodium Chloride (Sodium Chloride 0.9%) 1,000 mls @ 80 mls/hr IV .[id number] [facility] Last Admin: 09/19/18 12:00 Dose: 80 mls/hr Insulin Aspart (Novolog) 0 unit SC ACHS [facility]; Protocol Last Admin: 09/19/18 12:38 Dose: Not Given Insulin Glargine (Lantus) 35 unit SC HS [facility] Pantoprazole Sodium (Protonix Ec Tab) 40 mg PO DAILY [facility] Last Admin: 09/19/18 13:48 Dose: 40 mg Pregabalin (Lyrica) 50 mg PO BID [facility] Last Admin: 09/19/18 09:22 Dose: 50 mg Rosuvastatin Calcium (Crestor) 5 mg PO HS [facility] Last Admin: 09/18/18 22:27 Dose: 5 mg - Labs Labs: 09/19/18 06:51 09/19/18 06:51 PT 11.9 SECONDS (9.7-12.2) 09/16/18 11:36 INR 1.1 09/16/18 11:36 APTT 35 SECONDS (21-34) H 09/16/18 11:36 - Constitutional Appears: Non-toxic, Chronically Ill - Head Exam Head Exam: NORMOCEPHALIC - Eye Exam Eye Exam: absent: Scleral icterus - ENT Exam ENT Exam: Mucous Membranes Dry - Neck Exam Neck Exam: absent: Lymphadenopathy - Respiratory Exam Respiratory Exam: Decreased Breath Sounds - Cardiovascular Exam Cardiovascular Exam: REGULAR RHYTHM - GI/Abdominal Exam GI & Abdominal Exam: Distended, Soft - Rectal Exam Rectal Exam: Deferred - Exam Exam: NORMAL INSPECTION - Extremities Exam Extremities Exam: absent: Calf Tenderness Additional comments: right BKA Left foot ischemic changes noted VASC: DP and PT pulses nonpalpable. CFT unable to assess. Temperature gradient warm to cool. Edema noted to digits. NEURO: Protective sensation absent. DERM: Ischemia/gangrenous changes noted to distal aspects of digits, superficial wound noted to medial aspect of hallucal tuft, no drainage, no purulence, no fluctuance, no malodor ORTHO: No pain on palpation present - Back Exam Back Exam: absent: CVA tenderness (L), CVA tenderness (R) - Neurological Exam Neurological Exam: Alert, Awake, Oriented x3 - Psychiatric Exam Psychiatric exam: Depressed Assessment and Plan (1) CHF (congestive heart failure) Status: Acute (2) PVD (peripheral vascular disease) Status: Acute (3) Foot ulcer, left Status: Acute (4) Hx of right BKA Status: Acute (5) CAD (coronary artery disease) Status: Acute (6) Hx of CABG Status: Acute (7) DMII (diabetes mellitus, type 2) Status: Acute - Assessment and Plan (Free Text) Assessment: cont iv rx / wound care
--- NOTE | 2018-09-19 19:45 | CP.PCM.PN ---
Subjective - Date & Time of Evaluation Date of Evaluation: 09/19/18 Time of Evaluation: 08:00 - Subjective Subjective: clinically same Objective - Vital Signs/Intake and Output Vital Signs (last 24 hours): Temp Pulse Resp BP Pulse Ox 100.4 F H 79 20 160/70 H 95 09/19/18 15:00 09/19/18 15:00 09/19/18 15:00 09/19/18 17:18 09/19/18 15:00 Intake and Output: 09/19/18 09/20/18 18:59 06:59 Intake Total 1130 Balance 1130 - Medications Medications: Current Medications Acetaminophen (Tylenol 325mg Tab) 650 mg PO Q6 PRN PRN Reason: Fever >100.4 F Last Admin: 09/18/18 16:57 Dose: 650 mg Amlodipine Besylate (Norvasc) 10 mg PO DAILY [facility] Last Admin: 09/19/18 09:22 Dose: 10 mg Carvedilol (Coreg) 12.5 mg PO BID [facility] Last Admin: 09/19/18 17:18 Dose: 12.5 mg Clopidogrel Bisulfate (Plavix) 75 mg PO DAILY [facility] Last Admin: 09/19/18 09:22 Dose: 75 mg Folic Acid (Folic Acid) 1 mg PO DAILY [facility] Last Admin: 09/19/18 09:22 Dose: 1 mg Heparin Sodium (Porcine) (Heparin) 5,000 units SC Q12 [facility] Last Admin: 09/19/18 09:21 Dose: 5,000 units Piperacillin Sod/Tazobactam Sod (Zosyn 2.25 Gm Iv Premix) 2.25 gm in 50 mls @ 100 mls/hr IVPB Q6H [facility]; Protocol Last Admin: 09/19/18 09:23 Dose: 100 mls/hr Sodium Chloride (Sodium Chloride 0.9%) 1,000 mls @ 80 mls/hr IV .[id number] [facility] Last Admin: 09/19/18 12:00 Dose: 80 mls/hr Insulin Aspart (Novolog) 0 unit SC ACHS [facility]; Protocol Last Admin: 09/19/18 17:21 Dose: Not Given Insulin Glargine (Lantus) 35 unit SC HS [facility] Ondansetron HCl (Zofran Tab) 4 mg PO Q8H PRN PRN Reason: Nausea/Vomiting Pantoprazole Sodium (Protonix Ec Tab) 40 mg PO DAILY [facility] Last Admin: 09/19/18 13:48 Dose: 40 mg Pregabalin (Lyrica) 50 mg PO BID [facility] Last Admin: 09/19/18 17:20 Dose: 50 mg Rosuvastatin Calcium (Crestor) 5 mg PO HS [facility] Last Admin: 09/18/18 22:27 Dose: 5 mg - Labs Labs: 09/19/18 06:51 09/19/18 06:51 PT 11.9 SECONDS (9.7-12.2) 09/16/18 11:36 INR 1.1 09/16/18 11:36 APTT 35 SECONDS (21-34) H 09/16/18 11:36
[2018-09-19] MEDS ORDERED: Albuterol-Ipratrop 3 mg / 0.5 (3 ml) UD INH STA (21:36)
[2018-09-19] MEDS: (Lantus) Insulin Glargine, Recombinant SC SCH (22:46)
[2018-09-20] MEDS: Albuterol-Ipratrop 3 mg / 0.5 (3 ml) UD INH SCH ×4 (02:37→20:58)
[2018-09-20] MEDS: Piperacill/Tazo 2.25gm in Dex 2.25 GM/50 ML BAG IVPB SCH ×4 (03:39→21:49)
[2018-09-20] MEDS: (Novolog) Insulin Aspart, Recombinant 100 u/ml 10 ml vial SC SCH ×4 (07:59→21:42)
[2018-09-20] MEDS: Pantoprazole 40 mg EC Tab PO SCH (11:00)
--- NOTE | 2018-09-20 11:25 | CP.PCM.PN ---
Subjective - Date & Time of Evaluation Date of Evaluation: 09/20/18 Time of Evaluation: 11:22 - Subjective Subjective: Podiatry Progress Note - Dr. Moralez 67M seen and evaluated for left foot ischemia. Patient s/p angioplasty, tolerated well. No new complaints to left foot. Denies n/f/d/c/sob/valenzuela/cp. Objective - Vital Signs/Intake and Output Vital Signs (last 24 hours): Temp Pulse Resp BP Pulse Ox 97.5 F L 85 20 143/60 95 09/20/18 08:44 09/20/18 08:44 09/20/18 08:44 09/20/18 08:44 09/20/18 08:44 Intake and Output: 09/20/18 09/20/18 06:59 18:59 Intake Total 590 Output Total 600 Balance -10 - Medications Medications: Current Medications Acetaminophen (Tylenol 325mg Tab) 650 mg PO Q6 PRN PRN Reason: Fever >100.4 F Last Admin: 09/18/18 16:57 Dose: 650 mg Albuterol/Ipratropium (Duoneb 3 Mg/0.5 Mg (3 Ml) Ud) 3 ml INH RQ6 [facility] Last Admin: 09/20/18 07:45 Dose: 3 ml Amlodipine Besylate (Norvasc) 10 mg PO DAILY [facility] Last Admin: 09/19/18 09:22 Dose: 10 mg Carvedilol (Coreg) 12.5 mg PO BID [facility] Last Admin: 09/19/18 17:18 Dose: 12.5 mg Clopidogrel Bisulfate (Plavix) 75 mg PO DAILY [facility] Last Admin: 09/19/18 09:22 Dose: 75 mg Folic Acid (Folic Acid) 1 mg PO DAILY [facility] Last Admin: 09/19/18 09:22 Dose: 1 mg Furosemide (Lasix) 40 mg IVP DAILY [facility] Heparin Sodium (Porcine) (Heparin) 5,000 units SC Q12 [facility] Last Admin: 09/19/18 21:39 Dose: 5,000 units Piperacillin Sod/Tazobactam Sod (Zosyn 2.25 Gm Iv Premix) 2.25 gm in 50 mls @ 100 mls/hr IVPB Q6H [facility]; Protocol Last Admin: 09/20/18 03:39 Dose: 100 mls/hr Insulin Aspart (Novolog) 0 unit SC ACHS [facility]; Protocol Last Admin: 09/20/18 07:59 Dose: 3 units Insulin Glargine (Lantus) 35 unit SC [facility] Last Admin: 09/19/18 22:46 Dose: Not Given Ondansetron HCl (Zofran Tab) 4 mg PO Q8H PRN PRN Reason: Nausea/Vomiting Pantoprazole Sodium (Protonix Ec Tab) 40 mg PO DAILY [facility] Last Admin: 09/19/18 13:48 Dose: 40 mg Pregabalin (Lyrica) 50 mg PO BID [facility] Last Admin: 09/19/18 17:20 Dose: 50 mg Rosuvastatin Calcium (Crestor) 5 mg PO [facility] Last Admin: 09/19/18 21:39 Dose: 5 mg - Labs Labs: 09/19/18 06:51 09/19/18 06:51 PT 11.9 SECONDS (9.7-12.2) 09/16/18 11:36 INR 1.1 09/16/18 11:36 APTT 35 SECONDS (21-34) H 09/16/18 11:36 - Constitutional Appears: Well, Non-toxic, No Acute Distress - Head Exam Head Exam: ATRAUMATIC - Extremities Exam Additional comments: R BKA LLE focused: VASC: DP and PT pulses nonpalpable. CFT unable to assess. Temperature gradient warm to cool. Edema noted to digits. NEURO: Protective sensation absent. DERM: Ischemia/gangrenous changes noted to distal aspects of digits, superficial wound noted to medial aspect of hallucal tuft, no drainage, no purulence, no fluctuance, no malodor ORTHO: No pain on palpation present - Neurological Exam Neurological Exam: Alert, Awake, Oriented x3 - Psychiatric Exam Psychiatric exam: Normal Affect Assessment and Plan - Assessment and Plan (Free Text) Assessment: 67M with left foot ischemia 2/2 PVD Plan: Patient seen and evaluated Discussed with attending, Dr. Kirt FLORES, WBC 5.5 Left foot, tibfib XR: advanced atherosclerotic vascular calcifications Vascular, Dr. Iraheta consulted - patient s/p angioplasty; anterior tibial artery and posterior tibial artery patent, peroneal artery occluded Podiatry will continue to follow; patient to remain in the hospital for the weekend for IV antibiotics
--- NOTE | 2018-09-20 14:16 | CP.PCM.PN ---
Subjective - Date & Time of Evaluation Date of Evaluation: 09/20/18 Time of Evaluation: 08:00 - Subjective Subjective: clinically same Objective - Vital Signs/Intake and Output Vital Signs (last 24 hours): Temp Pulse Resp BP Pulse Ox 97.5 F L 85 20 143/60 95 09/20/18 08:44 09/20/18 08:44 09/20/18 08:44 09/20/18 11:00 09/20/18 08:44 Intake and Output: 09/20/18 09/20/18 06:59 18:59 Intake Total 590 Output Total 600 Balance -10 - Medications Medications: Current Medications Acetaminophen (Tylenol 325mg Tab) 650 mg PO Q6 PRN PRN Reason: Fever >100.4 F Last Admin: 09/18/18 16:57 Dose: 650 mg Albuterol/Ipratropium (Duoneb 3 Mg/0.5 Mg (3 Ml) Ud) 3 ml INH RQ6 [facility] Last Admin: 09/20/18 07:45 Dose: 3 ml Amlodipine Besylate (Norvasc) 10 mg PO DAILY [facility] Last Admin: 09/20/18 11:00 Dose: 10 mg Carvedilol (Coreg) 12.5 mg PO BID [facility] Last Admin: 09/20/18 11:00 Dose: 12.5 mg Clopidogrel Bisulfate (Plavix) 75 mg PO DAILY [facility] Last Admin: 09/20/18 11:00 Dose: 75 mg Folic Acid (Folic Acid) 1 mg PO DAILY [facility] Last Admin: 09/20/18 11:00 Dose: 1 mg Furosemide (Lasix) 40 mg IVP DAILY [facility] Last Admin: 09/20/18 11:00 Dose: 40 mg Heparin Sodium (Porcine) (Heparin) 5,000 units SC Q12 [facility] Last Admin: 09/20/18 11:00 Dose: 5,000 units Piperacillin Sod/Tazobactam Sod (Zosyn 2.25 Gm Iv Premix) 2.25 gm in 50 mls @ 100 mls/hr IVPB Q6H [facility]; Protocol Last Admin: 09/20/18 11:00 Dose: 100 mls/hr Insulin Aspart (Novolog) 0 unit SC ACHS [facility]; Protocol Last Admin: 09/20/18 12:08 Dose: 10 units Insulin Glargine (Lantus) 35 unit SC HS [facility] Last Admin: 09/19/18 22:46 Dose: Not Given Ondansetron HCl (Zofran Tab) 4 mg PO Q8H PRN PRN Reason: Nausea/Vomiting Pantoprazole Sodium (Protonix Ec Tab) 40 mg PO DAILY [facility] Last Admin: 09/20/18 11:00 Dose: 40 mg Pregabalin (Lyrica) 50 mg PO BID [facility] Last Admin: 09/20/18 11:00 Dose: 50 mg Rosuvastatin Calcium (Crestor) 5 mg PO HS [facility] Last Admin: 09/19/18 21:39 Dose: 5 mg - Labs Labs: 09/19/18 06:51 09/19/18 06:51 PT 11.9 SECONDS (9.7-12.2) 09/16/18 11:36 INR 1.1 09/16/18 11:36 APTT 35 SECONDS (21-34) H 09/16/18 11:36 - Constitutional Appears: Well - Head Exam Head Exam: ATRAUMATIC, NORMAL INSPECTION, NORMOCEPHALIC - Eye Exam Eye Exam: EOMI, Normal appearance, PERRL Pupil Exam: NORMAL ACCOMODATION, PERRL - ENT Exam ENT Exam: Mucous Membranes Moist, Normal Exam - Neck Exam Neck Exam: Full ROM, Normal Inspection. absent: Lymphadenopathy - Respiratory Exam Respiratory Exam: Decreased Breath Sounds - Cardiovascular Exam Cardiovascular Exam: REGULAR RHYTHM, +S1, +S2 - GI/Abdominal Exam GI & Abdominal Exam: Soft, Diminished Bowel Sounds - Rectal Exam Rectal Exam: Deferred
[2018-09-20] MEDS: (Lantus) Insulin Glargine, Recombinant SC SCH (21:49)
--- NOTE | 2018-09-20 22:02 | CP.PCM.CON ---
History of Present Illness - History of Present Illness History of Present Illness: CC: Shortness of breath HPI: 67 year old man with chronic disease 1. Diabetes poorly controlled 2. PVD s/p right BKA and admitted for CLI now s/p TRANSLATOR INTERPRETER of left SFA 3. HTN is chronic and needs better control on coreg, amlodipine He reporting several days of increased dyspena. Worse with minimal exertion. Improves with rest. he is reporting improvemet in his symptoms with furosemide. Past Patient History - Infectious Disease Hx of Infectious Diseases: None - Past Medical History & Family History Past Medical History?: Yes - Past Social History Smoking Status: Former Smoker - CARDIAC Hx Cardiac Disorders: Yes ([place], CAD, CABG) Hx Hypercholesterolemia: Yes Hx Hypertension: Yes - PULMONARY Hx Respiratory Disorders: No - NEUROLOGICAL HX Cerebrovascular Accident: Yes (CVA) - HEENT Hx HEENT Problems: Yes Hx Blind: Yes (RIGHT EYE) Hx Deafness: Yes (RIGHT EAR) - RENAL Hx Chronic Kidney Disease: Yes ([place]) - ENDOCRINE/METABOLIC Hx Diabetes Mellitus Type 2: Yes - HEMATOLOGICAL/ONCOLOGICAL Hx Blood Disorders: No Hx Blood Transfusions: (MAYBE) - INTEGUMENTARY Hx Dermatological Problems: Yes Other/Comment: ULCERS LEFT FOOT HEEL; left foot ischemic digits - MUSCULOSKELETAL/RHEUMATOLOGICAL Hx Fractures: Yes (RIGHT ARM CHILDHOOD) - GASTROINTESTINAL Hx Gastrointestinal Disorders: Yes Hx Gastroesophageal Reflux: Yes - GENITOURINARY/GYNECOLOGICAL Hx Genitourinary Disorders: No - PSYCHIATRIC Hx Substance Use: No - SURGICAL HISTORY Hx Coronary Artery Bypass Graft: Yes Hx Coronary Stent: Yes (2003) - ANESTHESIA Hx Anesthesia: Yes Hx Anesthesia Reactions: No Hx Malignant Hyperthermia: No Meds Allergies/Adverse Reactions: Allergies Allergy/AdvReac Type Severity Reaction Status Date / Time No Known Allergies Allergy Verified 08/11/15 09:42 - Medications Medications: Current Medications Acetaminophen (Tylenol 325mg Tab) 650 mg PO Q6 PRN PRN Reason: Fever >100.4 F Last Admin: 09/18/18 16:57 Dose: 650 mg Albuterol/Ipratropium (Duoneb 3 Mg/0.5 Mg (3 Ml) Ud) 3 ml INH RQ6 [facility] Last Admin: 09/20/18 20:58 Dose: 3 ml Amlodipine Besylate (Norvasc) 10 mg PO DAILY [facility] Last Admin: 09/20/18 11:00 Dose: 10 mg Carvedilol (Coreg) 12.5 mg PO BID [facility] Last Admin: 09/20/18 17:03 Dose: 12.5 mg Clopidogrel Bisulfate (Plavix) 75 mg PO DAILY [facility] Last Admin: 09/20/18 11:00 Dose: 75 mg Folic Acid (Folic Acid) 1 mg PO DAILY [facility] Last Admin: 09/20/18 11:00 Dose: 1 mg Furosemide (Lasix) 40 mg IVP DAILY [facility] Last Admin: 09/20/18 11:00 Dose: 40 mg Heparin Sodium (Porcine) (Heparin) 5,000 units SC Q12 [facility] Last Admin: 09/20/18 21:48 Dose: 5,000 units Piperacillin Sod/Tazobactam Sod (Zosyn 2.25 Gm Iv Premix) 2.25 gm in 50 mls @ 100 mls/hr IVPB Q6H [facility]; Protocol Last Admin: 09/20/18 21:49 Dose: 100 mls/hr Insulin Aspart (Novolog) 0 unit SC ACHS [facility]; Protocol Last Admin: 09/20/18 21:42 Dose: Not Given Insulin Glargine (Lantus) 35 unit SC [facility] Last Admin: 09/20/18 21:49 Dose: 35 unit Ondansetron HCl (Zofran Tab) 4 mg PO Q8H PRN PRN Reason: Nausea/Vomiting Pantoprazole Sodium (Protonix Ec Tab) 40 mg PO DAILY [facility] Last Admin: 09/20/18 11:00 Dose: 40 mg Pregabalin (Lyrica) 50 mg PO BID [facility] Last Admin: 09/20/18 17:02 Dose: 50 mg Rosuvastatin Calcium (Crestor) 5 mg PO [facility] Last Admin: 09/20/18 21:48 Dose: 5 mg Physical Exam - Constitutional Appears: Well, Non-toxic - Head Exam Head Exam: ATRAUMATIC, NORMAL INSPECTION - Eye Exam Eye Exam: PERRL. absent: Scleral icterus - ENT Exam ENT Exam: Mucous Membranes Moist, Normal External Ear Exam - Neck Exam Neck exam: Positive for: Full Rom. Negative for: Thyromegaly - Respiratory Exam Respiratory Exam: Clear to Auscultation Bilateral, NORMAL BREATHING PATTERN - Cardiovascular Exam Cardiovascular Exam: REGULAR RHYTHM, +S1, +S2. absent: JVD Additional comments: Left leg gangerene and vascular ulcers Right BKA - GI/Abdominal Exam GI & Abdominal Exam: Normal Bowel Sounds. absent: Organomegaly - Neurological Exam Neurological exam: CN II-XII Intact, Oriented x3 - Psychiatric Exam Psychiatric exam: Normal Affect, Normal Mood Results - Vital Signs Recent Vital Signs: Last Vital Signs Temp 98.3 F 09/20/18 16:00 Pulse 73 09/20/18 16:00 Resp 20 09/20/18 16:00 BP 148/70 09/20/18 20:03 Pulse Ox 95 09/20/18 16:00 - Labs Result Diagrams: 09/19/18 06:51 09/19/18 06:51 Labs: Laboratory Results - last 24 hr 09/19/18 09/20/18 09/20/18 22:19 07:11 11:36 POC Glucose (mg/dL) 234 H 482 H* NT-Pro-B Natriuret Pep 8630 H 09/20/18 09/20/18 16:30 20:57 POC Glucose (mg/dL) > 500 H* 297 H NT-Pro-B Natriuret Pep - EKG Data EKG Interpreted by: Myself EKG shows normal: Sinus rhythm - Imaging and Cardiology Chest x-ray Status: Image reviewed by me Additional comment: No infiltrates or effusons. Assessment & Plan - Assessment and Plan (Free Text) Assessment: 67 year old man with acute diastolic CHF increase lasix 40mg IV BID, measure naeem ling pressures with repeat 2D echo COPD now on bronchodilatoras and steroids PVD with CLI s/p TRANSLATOR INTERPRETER of the SFA with severe arch stenosis, vascular following DM chronic and poorly controlled, on insulin CKD is chronic and contributing to this volume overload, LOVELY/ARB to minimize proteinuria. - Date & Time Date: 09/20/18 Time: 08:00
[2018-09-21] MEDS: Albuterol-Ipratrop 3 mg / 0.5 (3 ml) UD INH SCH ×6 (02:02→23:55)
[2018-09-21] MEDS ORDERED: MethylPREDNISolone 40 mg Vial IM STA (02:25)
[2018-09-21] MEDS: Piperacill/Tazo 2.25gm in Dex 2.25 GM/50 ML BAG IVPB SCH ×4 (03:05→21:37)
[2018-09-21] MEDS: (Novolog) Insulin Aspart, Recombinant 100 u/ml 10 ml vial SC SCH ×4 (08:02→21:39)
--- NOTE | 2018-09-21 11:08 | CP.PCM.PN ---
Subjective - Date & Time of Evaluation Date of Evaluation: 09/21/18 Time of Evaluation: 11:06 - Subjective Subjective: Podiatry Progress Note - Dr. Moralez 67M seen and evaluated for left foot ischemia. Patient s/p angioplasty, tolerated well. No new complaints to left foot. Denies n/f/d/c/sob/valenzuela/cp. Objective - Vital Signs/Intake and Output Vital Signs (last 24 hours): Temp Pulse Resp BP Pulse Ox 98.7 F 79 20 162/58 H 99 09/21/18 08:19 09/21/18 08:19 09/21/18 08:19 09/21/18 08:19 09/21/18 08:19 Intake and Output: 09/21/18 09/21/18 06:59 18:59 Intake Total 320 180 Balance 320 180 - Medications Medications: Current Medications Acetaminophen (Tylenol 325mg Tab) 650 mg PO Q6 PRN PRN Reason: Fever >100.4 F Last Admin: 09/18/18 16:57 Dose: 650 mg Albuterol/Ipratropium (Duoneb 3 Mg/0.5 Mg (3 Ml) Ud) 3 ml INH RQ4 [facility] Last Admin: 09/21/18 07:45 Dose: 3 ml Amlodipine Besylate (Norvasc) 10 mg PO DAILY [facility] Last Admin: 09/20/18 11:00 Dose: 10 mg Carvedilol (Coreg) 12.5 mg PO BID [facility] Last Admin: 09/20/18 17:03 Dose: 12.5 mg Clopidogrel Bisulfate (Plavix) 75 mg PO DAILY [facility] Last Admin: 09/20/18 11:00 Dose: 75 mg Folic Acid (Folic Acid) 1 mg PO DAILY [facility] Last Admin: 09/20/18 11:00 Dose: 1 mg Furosemide (Lasix) 40 mg IVP DAILY [facility] Last Admin: 09/20/18 11:00 Dose: 40 mg Heparin Sodium (Porcine) (Heparin) 5,000 units SC Q12 [facility] Last Admin: 09/20/18 21:48 Dose: 5,000 units Piperacillin Sod/Tazobactam Sod (Zosyn 2.25 Gm Iv Premix) 2.25 gm in 50 mls @ 100 mls/hr IVPB Q6H [facility]; Protocol Last Admin: 09/21/18 03:05 Dose: 100 mls/hr Insulin Aspart (Novolog) 0 unit SC [facility]; Protocol Last Admin: 09/21/18 08:02 Dose: 4 units Insulin Glargine (Lantus) 35 unit SC [facility] Last Admin: 09/20/18 21:49 Dose: 35 unit Ondansetron HCl (Zofran Tab) 4 mg PO Q8H PRN PRN Reason: Nausea/Vomiting Pantoprazole Sodium (Protonix Ec Tab) 40 mg PO DAILY [facility] Last Admin: 09/20/18 11:00 Dose: 40 mg Pregabalin (Lyrica) 50 mg PO BID [facility] Last Admin: 09/20/18 17:02 Dose: 50 mg Rosuvastatin Calcium (Crestor) 5 mg PO HS [facility] Last Admin: 09/20/18 21:48 Dose: 5 mg - Labs Labs: 09/19/18 06:51 09/19/18 06:51 PT 11.9 SECONDS (9.7-12.2) 09/16/18 11:36 INR 1.1 09/16/18 11:36 APTT 35 SECONDS (21-34) H 09/16/18 11:36 - Constitutional Appears: Well, Non-toxic - Head Exam Head Exam: ATRAUMATIC - Eye Exam Eye Exam: Normal appearance - Extremities Exam Additional comments: R BKMatias LLE focused: VASC: DP and PT pulses nonpalpable. CFT unable to assess. Temperature gradient warm to cool. Edema noted to digits. NEURO: Protective sensation absent. DERM: Ischemia/gangrenous changes noted to distal aspects of digits(1-4), superficial wound noted to medial aspect of hallucal tuft, no drainage, no purulence, no fluctuance, no malodor fluctuance noted on dorsal aspect of third digits, all digits dry otherwise ORTHO: No pain on palpation present Assessment and Plan - Assessment and Plan (Free Text) Assessment: 67M with left foot ischemia 2/2 PVD Plan: Patient seen and evaluated Discussed with attending, Dr. Kirt FLORES, WBC 5.5 Left foot, tibfib XR: advanced atherosclerotic vascular calcifications Vascular, Dr. Iraheta consulted - patient s/p angioplasty; anterior tibial artery and posterior tibial artery patent, peroneal artery occluded Podiatry will continue to follow; patient to remain in the hospital for the weekend for IV antibiotics
[2018-09-21] MEDS: Pantoprazole 40 mg EC Tab PO SCH (11:09)
--- NOTE | 2018-09-21 15:19 | CP.PCM.PN ---
Subjective - Date & Time of Evaluation Date of Evaluation: 09/21/18 Time of Evaluation: 08:00 - Subjective Subjective: clinically same Objective - Vital Signs/Intake and Output Vital Signs (last 24 hours): Temp Pulse Resp BP Pulse Ox 98.7 F 79 20 162/58 H 99 09/21/18 08:19 09/21/18 08:19 09/21/18 08:19 09/21/18 11:19 09/21/18 08:19 Intake and Output: 09/21/18 09/21/18 06:59 18:59 Intake Total 320 180 Balance 320 180 - Medications Medications: Current Medications Acetaminophen (Tylenol 325mg Tab) 650 mg PO Q6 PRN PRN Reason: Fever >100.4 F Last Admin: 09/18/18 16:57 Dose: 650 mg Albuterol/Ipratropium (Duoneb 3 Mg/0.5 Mg (3 Ml) Ud) 3 ml INH RQ4 [facility] Last Admin: 09/21/18 11:50 Dose: 3 ml Amlodipine Besylate (Norvasc) 10 mg PO DAILY [facility] Last Admin: 09/21/18 11:09 Dose: 10 mg Carvedilol (Coreg) 12.5 mg PO BID [facility] Last Admin: 09/21/18 11:19 Dose: 12.5 mg Clopidogrel Bisulfate (Plavix) 75 mg PO DAILY [facility] Last Admin: 09/21/18 11:08 Dose: 75 mg Folic Acid (Folic Acid) 1 mg PO DAILY [facility] Last Admin: 09/21/18 11:08 Dose: 1 mg Furosemide (Lasix) 40 mg IVP DAILY [facility] Last Admin: 09/21/18 11:10 Dose: 40 mg Heparin Sodium (Porcine) (Heparin) 5,000 units SC Q12 [facility] Last Admin: 09/21/18 11:09 Dose: 5,000 units Piperacillin Sod/Tazobactam Sod (Zosyn 2.25 Gm Iv Premix) 2.25 gm in 50 mls @ 100 mls/hr IVPB Q6H [facility]; Protocol Last Admin: 09/21/18 11:10 Dose: 100 mls/hr Insulin Aspart (Novolog) 0 unit SC ACHS [facility]; Protocol Last Admin: 09/21/18 11:50 Dose: 6 units Insulin Glargine (Lantus) 35 unit SC HS [facility] Last Admin: 09/20/18 21:49 Dose: 35 unit Ondansetron HCl (Zofran Tab) 4 mg PO Q8H PRN PRN Reason: Nausea/Vomiting Pantoprazole Sodium (Protonix Ec Tab) 40 mg PO DAILY [facility] Last Admin: 09/21/18 11:09 Dose: 40 mg Pregabalin (Lyrica) 50 mg PO BID [facility] Last Admin: 09/21/18 11:09 Dose: 50 mg Rosuvastatin Calcium (Crestor) 5 mg PO HS [facility] Last Admin: 09/20/18 21:48 Dose: 5 mg - Labs Labs: 09/19/18 06:51 09/19/18 06:51 PT 11.9 SECONDS (9.7-12.2) 09/16/18 11:36 INR 1.1 09/16/18 11:36 APTT 35 SECONDS (21-34) H 09/16/18 11:36
--- NOTE | 2018-09-21 15:24 | CP.PCM.PN ---
Subjective - Date & Time of Evaluation Date of Evaluation: 09/21/18 Time of Evaluation: 15:21 - Subjective Subjective: Shortness of breath. Now s/p solumedrol. Improved with lasix BID Objective - Vital Signs/Intake and Output Vital Signs (last 24 hours): Temp Pulse Resp BP Pulse Ox 98.7 F 79 20 162/58 H 99 09/21/18 08:19 09/21/18 08:19 09/21/18 08:19 09/21/18 11:19 09/21/18 08:19 Intake and Output: 09/21/18 09/21/18 06:59 18:59 Intake Total 320 180 Balance 320 180 - Medications Medications: Current Medications Acetaminophen (Tylenol 325mg Tab) 650 mg PO Q6 PRN PRN Reason: Fever >100.4 F Last Admin: 09/18/18 16:57 Dose: 650 mg Albuterol/Ipratropium (Duoneb 3 Mg/0.5 Mg (3 Ml) Ud) 3 ml INH RQ4 [facility] Last Admin: 09/21/18 11:50 Dose: 3 ml Amlodipine Besylate (Norvasc) 10 mg PO DAILY [facility] Last Admin: 09/21/18 11:09 Dose: 10 mg Carvedilol (Coreg) 12.5 mg PO BID [facility] Last Admin: 09/21/18 11:19 Dose: 12.5 mg Clopidogrel Bisulfate (Plavix) 75 mg PO DAILY [facility] Last Admin: 09/21/18 11:08 Dose: 75 mg Folic Acid (Folic Acid) 1 mg PO DAILY [facility] Last Admin: 09/21/18 11:08 Dose: 1 mg Furosemide (Lasix) 40 mg IVP BID [facility] Heparin Sodium (Porcine) (Heparin) 5,000 units SC Q12 [facility] Last Admin: 09/21/18 11:09 Dose: 5,000 units Piperacillin Sod/Tazobactam Sod (Zosyn 2.25 Gm Iv Premix) 2.25 gm in 50 mls @ 100 mls/hr IVPB Q6H [facility]; Protocol Last Admin: 09/21/18 11:10 Dose: 100 mls/hr Insulin Aspart (Novolog) 0 unit SC ACHS [facility]; Protocol Last Admin: 09/21/18 11:50 Dose: 6 units Insulin Glargine (Lantus) 35 unit SC HS [facility] Last Admin: 09/20/18 21:49 Dose: 35 unit Ondansetron HCl (Zofran Tab) 4 mg PO Q8H PRN PRN Reason: Nausea/Vomiting Pantoprazole Sodium (Protonix Ec Tab) 40 mg PO DAILY [facility] Last Admin: 09/21/18 11:09 Dose: 40 mg Pregabalin (Lyrica) 50 mg PO BID [facility] Last Admin: 09/21/18 11:09 Dose: 50 mg Rosuvastatin Calcium (Crestor) 5 mg PO HS [facility] Last Admin: 09/20/18 21:48 Dose: 5 mg - Labs Labs: 09/19/18 06:51 09/19/18 06:51 PT 11.9 SECONDS (9.7-12.2) 09/16/18 11:36 INR 1.1 09/16/18 11:36 APTT 35 SECONDS (21-34) H 09/16/18 11:36 - Constitutional Appears: Well, Non-toxic - Head Exam Head Exam: ATRAUMATIC, NORMAL INSPECTION - Eye Exam Eye Exam: PERRL. absent: Scleral icterus - ENT Exam ENT Exam: Mucous Membranes Moist, Normal External Ear Exam - Neck Exam Neck Exam: Full ROM. absent: Thyromegaly - Respiratory Exam Respiratory Exam: Wheezes, NORMAL BREATHING PATTERN - Cardiovascular Exam Cardiovascular Exam: REGULAR RHYTHM, RRR, +S1, +S2. absent: JVD Additional comments: Left foot gangrene and vascular ulcers; Right BKA - GI/Abdominal Exam GI & Abdominal Exam: Normal Bowel Sounds. absent: Organomegaly - Neurological Exam Neurological Exam: CN II-XII Intact, Oriented x3 - Psychiatric Exam Psychiatric exam: Normal Affect, Normal Mood Assessment and Plan - Assessment and Plan (Free Text) Assessment: 67 year old man with acute diastolic CHF increase lasix 40mg IV BID, measure filling pressures with repeat 2D echo COPD now on bronchodilatoras and steroids PVD with CLI s/p THERAPY ADMINISTRATIVE ASSISTANT of the SFA with severe arch stenosis, vascular following DM chronic and poorly controlled, on insulin CKD is chronic and contributing to this volume overload, LOVELY/ARB to minimize proteinuria.
--- NOTE | 2018-09-21 17:19 | CP.PCM.PN ---
Subjective - Date & Time of Evaluation Date of Evaluation: 09/21/18 Time of Evaluation: 09:00 - Subjective Subjective: improving on lasix Objective - Vital Signs/Intake and Output Vital Signs (last 24 hours): Temp Pulse Resp BP Pulse Ox 98.7 F 70 20 160/62 H 96 09/21/18 15:00 09/21/18 15:00 09/21/18 15:00 09/21/18 15:00 09/21/18 15:00 Intake and Output: 09/21/18 09/21/18 06:59 18:59 Intake Total 320 680 Balance 320 680 - Medications Medications: Current Medications Acetaminophen (Tylenol 325mg Tab) 650 mg PO Q6 PRN PRN Reason: Fever >100.4 F Last Admin: 09/18/18 16:57 Dose: 650 mg Albuterol/Ipratropium (Duoneb 3 Mg/0.5 Mg (3 Ml) Ud) 3 ml INH RQ4 [facility] Last Admin: 09/21/18 11:50 Dose: 3 ml Amlodipine Besylate (Norvasc) 10 mg PO DAILY [facility] Last Admin: 09/21/18 11:09 Dose: 10 mg Carvedilol (Coreg) 12.5 mg PO BID [facility] Last Admin: 09/21/18 11:19 Dose: 12.5 mg Clopidogrel Bisulfate (Plavix) 75 mg PO DAILY [facility] Last Admin: 09/21/18 11:08 Dose: 75 mg Folic Acid (Folic Acid) 1 mg PO DAILY [facility] Last Admin: 09/21/18 11:08 Dose: 1 mg Furosemide (Lasix) 40 mg IVP BID [facility] Heparin Sodium (Porcine) (Heparin) 5,000 units SC Q12 [facility] Last Admin: 09/21/18 11:09 Dose: 5,000 units Piperacillin Sod/Tazobactam Sod (Zosyn 2.25 Gm Iv Premix) 2.25 gm in 50 mls @ 100 mls/hr IVPB Q6H [facility]; Protocol Last Admin: 09/21/18 11:10 Dose: 100 mls/hr Insulin Aspart (Novolog) 0 unit SC ACHS [facility]; Protocol Last Admin: 09/21/18 11:50 Dose: 6 units Insulin Glargine (Lantus) 35 unit SC HS [facility] Last Admin: 09/20/18 21:49 Dose: 35 unit Ondansetron HCl (Zofran Tab) 4 mg PO Q8H PRN PRN Reason: Nausea/Vomiting Pantoprazole Sodium (Protonix Ec Tab) 40 mg PO DAILY [facility] Last Admin: 09/21/18 11:09 Dose: 40 mg Pregabalin (Lyrica) 50 mg PO BID [facility] Last Admin: 09/21/18 11:09 Dose: 50 mg Rosuvastatin Calcium (Crestor) 5 mg PO HS [facility] Last Admin: 09/20/18 21:48 Dose: 5 mg - Labs Labs: 09/19/18 06:51 09/19/18 06:51 PT 11.9 SECONDS (9.7-12.2) 09/16/18 11:36 INR 1.1 09/16/18 11:36 APTT 35 SECONDS (21-34) H 09/16/18 11:36 - Constitutional Appears: Non-toxic, Chronically Ill - Head Exam Head Exam: NORMOCEPHALIC - Eye Exam Eye Exam: absent: Scleral icterus - ENT Exam ENT Exam: Normal External Ear Exam - Neck Exam Neck Exam: absent: Lymphadenopathy - Respiratory Exam Respiratory Exam: Decreased Breath Sounds - Cardiovascular Exam Cardiovascular Exam: REGULAR RHYTHM - GI/Abdominal Exam GI & Abdominal Exam: Distended, Soft - Rectal Exam Rectal Exam: Deferred - Exam Exam: NORMAL INSPECTION - Extremities Exam Additional comments: gangrene digits left foot lright bka + Assessment and Plan (1) CHF (congestive heart failure) Status: Acute (2) PVD (peripheral vascular disease) Status: Acute (3) Foot ulcer, left Status: Acute (4) Hx of right BKA Status: Acute (5) CAD (coronary artery disease) Status: Acute (6) Hx of CABG Status: Acute (7) DMII (diabetes mellitus, type 2) Status: Acute
[2018-09-21] MEDS: (Lantus) Insulin Glargine, Recombinant SC SCH (21:37)
[2018-09-22] MEDS: Albuterol-Ipratrop 3 mg / 0.5 (3 ml) UD INH SCH ×4 (03:24→19:47)
[2018-09-22] MEDS: Piperacill/Tazo 2.25gm in Dex 2.25 GM/50 ML BAG IVPB SCH ×4 (04:07→21:28)
[2018-09-22] MEDS: (Novolog) Insulin Aspart, Recombinant 100 u/ml 10 ml vial SC SCH ×4 (07:38→21:28)
[2018-09-22] MEDS: Pantoprazole 40 mg EC Tab PO SCH (09:22)
--- NOTE | 2018-09-22 11:42 | CP.PCM.PN ---
Subjective - Date & Time of Evaluation Date of Evaluation: 09/22/18 Time of Evaluation: 11:42 - Subjective Subjective: Podiatry Progress Note - Dr. Moralez 67M seen and evaluated for left foot ischemia. Patient resting comfortably, NAD. No new LLE complaints. Denies n/f/d/c/sob/valenzuela/cp. Objective - Vital Signs/Intake and Output Vital Signs (last 24 hours): Temp Pulse Resp BP Pulse Ox 98.7 F 74 20 166/68 H 97 09/22/18 07:41 09/22/18 07:41 09/22/18 07:41 09/22/18 09:24 09/22/18 07:41 - Medications Medications: Current Medications Acetaminophen (Tylenol 325mg Tab) 650 mg PO Q6 PRN PRN Reason: Fever >100.4 F Last Admin: 09/18/18 16:57 Dose: 650 mg Albuterol/Ipratropium (Duoneb 3 Mg/0.5 Mg (3 Ml) Ud) 3 ml INH RQ4 [facility] Last Admin: 09/22/18 11:38 Dose: 3 ml Amlodipine Besylate (Norvasc) 10 mg PO DAILY [facility] Last Admin: 09/22/18 09:21 Dose: 10 mg Carvedilol (Coreg) 12.5 mg PO BID [facility] Last Admin: 09/22/18 09:22 Dose: 12.5 mg Clopidogrel Bisulfate (Plavix) 75 mg PO DAILY [facility] Last Admin: 09/22/18 09:22 Dose: 75 mg Folic Acid (Folic Acid) 1 mg PO DAILY [facility] Last Admin: 09/22/18 09:21 Dose: 1 mg Furosemide (Lasix) 40 mg IVP BID [facility] Last Admin: 09/22/18 09:24 Dose: 40 mg Heparin Sodium (Porcine) (Heparin) 5,000 units SC Q12 [facility] Last Admin: 09/22/18 09:23 Dose: 5,000 units Piperacillin Sod/Tazobactam Sod (Zosyn 2.25 Gm Iv Premix) 2.25 gm in 50 mls @ 100 mls/hr IVPB Q6H [facility]; Protocol Last Admin: 09/22/18 09:22 Dose: 100 mls/hr Insulin Aspart (Novolog) 0 unit SC ACHS [facility]; Protocol Last Admin: 09/22/18 11:41 Dose: 3 units Insulin Glargine (Lantus) 35 unit SC [facility] Last Admin: 09/21/18 21:37 Dose: 35 unit Ondansetron HCl (Zofran Tab) 4 mg PO Q8H PRN PRN Reason: Nausea/Vomiting Pantoprazole Sodium (Protonix Ec Tab) 40 mg PO DAILY [facility] Last Admin: 09/22/18 09:22 Dose: 40 mg Pregabalin (Lyrica) 50 mg PO BID [facility] Last Admin: 09/22/18 09:22 Dose: 50 mg Rosuvastatin Calcium (Crestor) 5 mg PO HS [facility] Last Admin: 09/21/18 21:37 Dose: 5 mg - Labs Labs: 09/19/18 06:51 09/19/18 06:51 PT 11.9 SECONDS (9.7-12.2) 09/16/18 11:36 INR 1.1 09/16/18 11:36 APTT 35 SECONDS (21-34) H 09/16/18 11:36 - Constitutional Appears: Non-toxic, No Acute Distress - Extremities Exam Additional comments: R BKA LLE focused: VASC: DP and PT pulses nonpalpable. CFT unable to assess. Temperature gradient warm to cool. Edema noted to digits. NEURO: Protective sensation absent. DERM: Ischemia/gangrenous changes noted to distal aspects of digits(1-4), superficial wound noted to medial aspect of hallucal tuft, no drainage, no purulence, no fluctuance, no malodor boggy 3rd digit with demarcation of gangrene noted on dorsal aspect of third digit, all digits dry otherwise ORTHO: No pain on palpation present - Neurological Exam Neurological Exam: Alert, Awake, Oriented x3 - Psychiatric Exam Psychiatric exam: Normal Affect, Normal Mood Assessment and Plan - Assessment and Plan (Free Text) Assessment: 67M with left foot ischemia 2/2 PVD Plan: Patient seen and evaluated Discussed with attending, Dr. 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
[2018-09-22 14:14] LABS: BASO % 0.4 % (0.0-2.0); EOS # 0.1 K/uL (0.0-0.7); EOS % 1.2 % (0.0-4.0); HEMOGLOBIN 9.9 g/dL (12.0-18.0); LYMPH # 1.4 K/uL (1.0-4.3); LYMPH % 20.7 % (20.0-40.0); MEAN CELL VOLUME 84.5 fL (80.0-94.0); MEAN CORPUSCULAR HEMOGLOBIN 28.2 pg (27.0-31.0); MEAN CORPUSCULAR HGB CONC 33.4 g/dL (33.0-37.0); MEAN PLATELET VOLUME 11.5 fL (7.2-11.7); MONO # 0.6 K/uL (0.0-0.8); MONO % 9.6 % (0.0-10.0); NEUT # 4.5 K/uL (1.8-7.0); NEUT % 68.1 % (50.0-75.0); NRBC % 0.1 % (0.0-2.0); RBC 3.5 Mil/uL (4.40-5.90); WHITE BLOOD COUNT 6.5 K/uL (4.8-10.8)
[2018-09-22 15:55] LABS: CALCIUM 8.3 mg/dl (8.6-10.4)
--- NOTE | 2018-09-22 16:59 | CP.PCM.PN ---
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 Edema improved Objective - Vital Signs/Intake and Output Vital Signs (last 24 hours): Temp Pulse Resp BP Pulse Ox 98.7 F 71 20 159/64 H 97 09/22/18 16:00 09/22/18 16:00 09/22/18 16:00 09/22/18 16:00 09/22/18 16:00 Intake and Output: 09/22/18 09/22/18 06:59 18:59 Intake Total 355 Balance 355 - Medications Medications: Current Medications Acetaminophen (Tylenol 325mg Tab) 650 mg PO Q6 PRN PRN Reason: Fever >100.4 F Last Admin: 09/18/18 16:57 Dose: 650 mg Albuterol/Ipratropium (Duoneb 3 Mg/0.5 Mg (3 Ml) Ud) 3 ml INH RQ4 [facility] Last Admin: 09/22/18 16:16 Dose: 3 ml Amlodipine Besylate (Norvasc) 10 mg PO DAILY [facility] Last Admin: 09/22/18 09:21 Dose: 10 mg Carvedilol (Coreg) 12.5 mg PO BID [facility] Last Admin: 09/22/18 09:22 Dose: 12.5 mg Clopidogrel Bisulfate (Plavix) 75 mg PO DAILY [facility] Last Admin: 09/22/18 09:22 Dose: 75 mg Folic Acid (Folic Acid) 1 mg PO DAILY [facility] Last Admin: 09/22/18 09:21 Dose: 1 mg Furosemide (Lasix) 40 mg IVP BID [facility] Last Admin: 09/22/18 09:24 Dose: 40 mg Heparin Sodium (Porcine) (Heparin) 5,000 units SC Q12 [facility] Last Admin: 09/22/18 09:23 Dose: 5,000 units Piperacillin Sod/Tazobactam Sod (Zosyn 2.25 Gm Iv Premix) 2.25 gm in 50 mls @ 100 mls/hr IVPB Q6H [facility]; Protocol Last Admin: 09/22/18 16:00 Dose: 100 mls/hr Insulin Aspart (Novolog) 0 unit SC ACHS [facility]; Protocol Last Admin: 09/22/18 16:24 Dose: Not Given Insulin Glargine (Lantus) 35 unit SC HS [facility] Last Admin: 09/21/18 21:37 Dose: 35 unit Ondansetron HCl (Zofran Tab) 4 mg PO Q8H PRN PRN Reason: Nausea/Vomiting Pantoprazole Sodium (Protonix Ec Tab) 40 mg PO DAILY [facility] Last Admin: 09/22/18 09:22 Dose: 40 mg Pregabalin (Lyrica) 50 mg PO BID [facility] Last Admin: 09/22/18 09:22 Dose: 50 mg Rosuvastatin Calcium (Crestor) 5 mg PO HS [facility] Last Admin: 09/21/18 21:37 Dose: 5 mg - Labs Labs: 09/22/18 14:03 09/22/18 14:03 PT 11.9 SECONDS (9.7-12.2) 09/16/18 11:36 INR 1.1 09/16/18 11:36 APTT 35 SECONDS (21-34) H 09/16/18 11:36 - Constitutional Appears: No Acute Distress - Head Exam Head Exam: ATRAUMATIC, NORMAL INSPECTION, NORMOCEPHALIC - Eye Exam Eye Exam: absent: Scleral icterus - ENT Exam ENT Exam: Mucous Membranes Moist, Normal Oropharynx - Neck Exam Neck Exam: Full ROM. absent: Thyromegaly - Respiratory Exam Respiratory Exam: Decreased Breath Sounds (bases), NORMAL BREATHING PATTERN. absent: Rhonchi, Wheezes - Cardiovascular Exam Cardiovascular Exam: REGULAR RHYTHM, +S1, +S2 - GI/Abdominal Exam GI & Abdominal Exam: Soft, Normal Bowel Sounds. 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
--- NOTE | 2018-09-22 18:43 | CP.PCM.PN ---
Subjective - Date & Time of Evaluation Date of Evaluation: 09/22/18 Time of Evaluation: 08:00 - Subjective Subjective: clinically same Objective - Vital Signs/Intake and Output Vital Signs (last 24 hours): Temp Pulse Resp BP Pulse Ox 98.7 F 71 20 159/64 H 97 09/22/18 16:00 09/22/18 16:00 09/22/18 16:00 09/22/18 17:20 09/22/18 16:00 Intake and Output: 09/22/18 09/22/18 06:59 18:59 Intake Total 355 Balance 355 - Medications Medications: Current Medications Acetaminophen (Tylenol 325mg Tab) 650 mg PO Q6 PRN PRN Reason: Fever >100.4 F Last Admin: 09/18/18 16:57 Dose: 650 mg Albuterol/Ipratropium (Duoneb 3 Mg/0.5 Mg (3 Ml) Ud) 3 ml INH RQ4 [facility] Last Admin: 09/22/18 16:16 Dose: 3 ml Amlodipine Besylate (Norvasc) 10 mg PO DAILY [facility] Last Admin: 09/22/18 09:21 Dose: 10 mg Carvedilol (Coreg) 12.5 mg PO BID [facility] Last Admin: 09/22/18 17:20 Dose: 12.5 mg Clopidogrel Bisulfate (Plavix) 75 mg PO DAILY [facility] Last Admin: 09/22/18 09:22 Dose: 75 mg Folic Acid (Folic Acid) 1 mg PO DAILY [facility] Last Admin: 09/22/18 09:21 Dose: 1 mg Furosemide (Lasix) 40 mg IVP BID [facility] Last Admin: 09/22/18 17:18 Dose: 40 mg Heparin Sodium (Porcine) (Heparin) 5,000 units SC Q12 [facility] Last Admin: 09/22/18 09:23 Dose: 5,000 units Piperacillin Sod/Tazobactam Sod (Zosyn 2.25 Gm Iv Premix) 2.25 gm in 50 mls @ 100 mls/hr IVPB Q6H [facility]; Protocol Last Admin: 09/22/18 16:00 Dose: 100 mls/hr Insulin Aspart (Novolog) 0 unit SC ACHS [facility]; Protocol Last Admin: 09/22/18 16:24 Dose: Not Given Insulin Glargine (Lantus) 35 unit SC HS [facility] Last Admin: 09/21/18 21:37 Dose: 35 unit Ondansetron HCl (Zofran Tab) 4 mg PO Q8H PRN PRN Reason: Nausea/Vomiting Pantoprazole Sodium (Protonix Ec Tab) 40 mg PO DAILY [facility] Last Admin: 09/22/18 09:22 Dose: 40 mg Pregabalin (Lyrica) 50 mg PO BID [facility] Last Admin: 09/22/18 17:18 Dose: 50 mg Rosuvastatin Calcium (Crestor) 5 mg PO HS [facility] Last Admin: 09/21/18 21:37 Dose: 5 mg - Labs Labs: 09/22/18 14:03 09/22/18 14:03 PT 11.9 SECONDS (9.7-12.2) 09/16/18 11:36 INR 1.1 09/16/18 11:36 APTT 35 SECONDS (21-34) H 09/16/18 11:36
[2018-09-22] MEDS: (Lantus) Insulin Glargine, Recombinant SC SCH (21:28)
[2018-09-23] MEDS: Albuterol-Ipratrop 3 mg / 0.5 (3 ml) UD INH SCH ×6 (00:41→19:48)
[2018-09-23] MEDS: Piperacill/Tazo 2.25gm in Dex 2.25 GM/50 ML BAG IVPB SCH ×4 (04:09→21:45)
[2018-09-23] MEDS: (Novolog) Insulin Aspart, Recombinant 100 u/ml 10 ml vial SC SCH ×4 (07:35→21:45)
[2018-09-23] MEDS: Potassium Chloride 20 mEq ER Tab PO SCH (07:36)
[2018-09-23] MEDS: Pantoprazole 40 mg EC Tab PO SCH (09:16)
--- NOTE | 2018-09-23 13:56 | CP.PCM.PN ---
Subjective - Date & Time of Evaluation Date of Evaluation: 09/23/18 Time of Evaluation: 13:55 - Subjective Subjective: Events reviewed. Objective - Vital Signs/Intake and Output Vital Signs (last 24 hours): Temp Pulse Resp BP Pulse Ox 98.4 F 77 20 161/64 H 96 09/23/18 08:00 09/23/18 08:00 09/23/18 08:00 09/23/18 09:17 09/23/18 08:00 Intake and Output: 09/23/18 09/23/18 06:59 18:59 Intake Total 400 Balance 400 - Medications Medications: Current Medications Acetaminophen (Tylenol 325mg Tab) 650 mg PO Q6 PRN PRN Reason: Fever >100.4 F Last Admin: 09/18/18 16:57 Dose: 650 mg Albuterol/Ipratropium (Duoneb 3 Mg/0.5 Mg (3 Ml) Ud) 3 ml INH RQ4 [facility] Last Admin: 09/23/18 07:20 Dose: 3 ml Amlodipine Besylate (Norvasc) 10 mg PO DAILY [facility] Last Admin: 09/23/18 09:16 Dose: 10 mg Carvedilol (Coreg) 12.5 mg PO BID [facility] Last Admin: 09/23/18 09:16 Dose: 12.5 mg Clopidogrel Bisulfate (Plavix) 75 mg PO DAILY [facility] Last Admin: 09/23/18 09:16 Dose: 75 mg Folic Acid (Folic Acid) 1 mg PO DAILY [facility] Last Admin: 09/23/18 09:16 Dose: 1 mg Furosemide (Lasix) 40 mg IVP BID [facility] Last Admin: 09/23/18 09:17 Dose: 40 mg Heparin Sodium (Porcine) (Heparin) 5,000 units SC Q12 [facility] Last Admin: 09/23/18 09:16 Dose: 5,000 units Piperacillin Sod/Tazobactam Sod (Zosyn 2.25 Gm Iv Premix) 2.25 gm in 50 mls @ 100 mls/hr IVPB Q6H [facility]; Protocol Last Admin: 09/23/18 09:27 Dose: 100 mls/hr Insulin Aspart (Novolog) 0 unit SC ACHS [facility]; Protocol Last Admin: 09/23/18 12:37 Dose: 10 units Insulin Glargine (Lantus) 35 unit SC HS [facility] Last Admin: 09/22/18 21:28 Dose: 35 unit Ondansetron HCl (Zofran Tab) 4 mg PO Q8H PRN PRN Reason: Nausea/Vomiting Pantoprazole Sodium (Protonix Ec Tab) 40 mg PO DAILY [facility] Last Admin: 09/23/18 09:16 Dose: 40 mg Potassium Chloride (K-Dur 20 Meq Er Tab) 40 meq PO BRK [facility] Last Admin: 09/23/18 07:36 Dose: 40 meq Pregabalin (Lyrica) 50 mg PO BID [facility] Last Admin: 09/23/18 09:16 Dose: 50 mg Rosuvastatin Calcium (Crestor) 5 mg PO HS [facility] Last Admin: 09/22/18 21:27 Dose: 5 mg - Labs Labs: 09/22/18 14:03 09/22/18 14:03 PT 11.9 SECONDS (9.7-12.2) 09/16/18 11:36 INR 1.1 09/16/18 11:36 APTT 35 SECONDS (21-34) H 09/16/18 11:36 Assessment and Plan - Assessment and Plan (Free Text) Assessment: - Constitutional Appears: No Acute Distress - Head Exam Head Exam: ATRAUMATIC, NORMAL INSPECTION, NORMOCEPHALIC - Eye Exam Eye Exam: absent: Scleral icterus - ENT Exam ENT Exam: Mucous Membranes Moist, Normal Oropharynx - Neck Exam Neck Exam: Full ROM. absent: Thyromegaly - Respiratory Exam Respiratory Exam: Decreased Breath Sounds (bases), NORMAL BREATHING PATTERN. absent: Rhonchi, Wheezes - Cardiovascular Exam Cardiovascular Exam: REGULAR RHYTHM, +S1, +S2 - GI/Abdominal Exam GI & Abdominal Exam: Soft, Normal Bowel Sounds. absent: Tenderness, Organomegaly - Extremities Exam Extremities Exam: absent: Calf Tenderness, Normal Inspection (RLE amputation, LLE severe chronic PAD with gasngrenous digit) - Neurological Exam Neurological Exam: Alert, Awake, Oriented x3 Assessment and Plan - Assessment and Plan (Free Text) Assessment: 67 year old man with acute diastolic CHF increase responding to lasix 40mg IV BID ECHO shows mild LV dysfunction EF 45-50%; Normal filling pressures on 2D echo with normal IVC, lower lasix 40mg po daily. Continue coreg, would add ARB and aldactone if cleared by renal. 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
--- NOTE | 2018-09-23 14:33 | CP.PCM.PN ---
Subjective - Date & Time of Evaluation Date of Evaluation: 09/23/18 Time of Evaluation: 07:45 - Subjective Subjective: clinically same Objective - Vital Signs/Intake and Output Vital Signs (last 24 hours): Temp Pulse Resp BP Pulse Ox 98.4 F 77 20 161/64 H 96 09/23/18 08:00 09/23/18 08:00 09/23/18 08:00 09/23/18 09:17 09/23/18 08:00 Intake and Output: 09/23/18 09/23/18 06:59 18:59 Intake Total 400 500 Balance 400 500 - Medications Medications: Current Medications Acetaminophen (Tylenol 325mg Tab) 650 mg PO Q6 PRN PRN Reason: Fever >100.4 F Last Admin: 09/18/18 16:57 Dose: 650 mg Albuterol/Ipratropium (Duoneb 3 Mg/0.5 Mg (3 Ml) Ud) 3 ml INH RQ4 [facility] Last Admin: 09/23/18 07:20 Dose: 3 ml Amlodipine Besylate (Norvasc) 10 mg PO DAILY [facility] Last Admin: 09/23/18 09:16 Dose: 10 mg Carvedilol (Coreg) 12.5 mg PO BID [facility] Last Admin: 09/23/18 09:16 Dose: 12.5 mg Clopidogrel Bisulfate (Plavix) 75 mg PO DAILY [facility] Last Admin: 09/23/18 09:16 Dose: 75 mg Folic Acid (Folic Acid) 1 mg PO DAILY [facility] Last Admin: 09/23/18 09:16 Dose: 1 mg Furosemide (Lasix) 40 mg PO DAILY [facility] Heparin Sodium (Porcine) (Heparin) 5,000 units SC Q12 [facility] Last Admin: 09/23/18 09:16 Dose: 5,000 units Piperacillin Sod/Tazobactam Sod (Zosyn 2.25 Gm Iv Premix) 2.25 gm in 50 mls @ 100 mls/hr IVPB Q6H [facility]; Protocol Last Admin: 09/23/18 09:27 Dose: 100 mls/hr Insulin Aspart (Novolog) 0 unit SC ACHS [facility]; Protocol Last Admin: 09/23/18 12:37 Dose: 10 units Insulin Glargine (Lantus) 35 unit SC HS [facility] Last Admin: 09/22/18 21:28 Dose: 35 unit Ondansetron HCl (Zofran Tab) 4 mg PO Q8H PRN PRN Reason: Nausea/Vomiting Pantoprazole Sodium (Protonix Ec Tab) 40 mg PO DAILY [facility] Last Admin: 09/23/18 09:16 Dose: 40 mg Potassium Chloride (K-Dur 20 Meq Er Tab) 40 meq PO BRK [facility] Last Admin: 09/23/18 07:36 Dose: 40 meq Pregabalin (Lyrica) 50 mg PO BID [facility] Last Admin: 09/23/18 09:16 Dose: 50 mg Rosuvastatin Calcium (Crestor) 5 mg PO HS [facility] Last Admin: 09/22/18 21:27 Dose: 5 mg - Labs Labs: 09/22/18 14:03 09/22/18 14:03 PT 11.9 SECONDS (9.7-12.2) 09/16/18 11:36 INR 1.1 09/16/18 11:36 APTT 35 SECONDS (21-34) H 09/16/18 11:36
--- NOTE | 2018-09-23 20:14 | CARD ---
APPROVED REPORT Date of service: 09/23/2018 EXAM: Two-dimensional and M-mode echocardiogram with Doppler and color Doppler. INDICATION RENAL INSUFFICIENCY , PERIPHERAL EDEMA RISK FACTORS Hypertension Hyperlipidemia Diabetes 2D DIMENSIONS IVSd0.8 (0.7-1.1cm)LVDd4.3 (3.9-5.9cm) PWd1.1 (0.7-1.1cm)LA Tnfvnx22 (18-58mL) LVDs1.8 (2.5-4.0cm)FS (%) 58.4 % LVEF (%)88.5 (>50%)LVEF (Ochoa's)58.30 % M-Mode DIMENSIONS Left Atrium (MM)4.21 (2.5-4.0cm)IVSd0.78 (0.7-1.1cm) Aortic Root3.04 (2.2-3.7cm)LVDd4.05 (4.0-5.6cm) Aortic Cusp Exc.1.85 (1.5-2.0cm)PWd0.93 (0.7-1.1cm) FS (%) 39 %LVDs2.47 (2.0-3.8cm) LVEF (%)70 (>50%) Mitral Valve MV E Wpyaltxd121.8cm/sMV A Nsonjgfg27.6cm/sE/A ratio1.3 TDI Lateral E' Peak V10.35cm/sMedial E' Peak V4.48cm/sE/Lateral E'10.3 E/Medial E'23.8 <Conclusion> tds. poor window. normal size lv,ra & rv. normal lv wall thickness & overall systolic function with lvef of 55-60%. apical septum appears markedly hypokinetis.cad. normal lv diastolic funciton. normal mitral,tv & pv. calcified rt coronary cusp with mild ai. trace tr. normal size aortic root. no pericardial effusion.
[2018-09-23] MEDS: (Lantus) Insulin Glargine, Recombinant SC SCH (21:44)
[2018-09-24] MEDS: Albuterol-Ipratrop 3 mg / 0.5 (3 ml) UD INH SCH ×4 (00:19→11:40)
[2018-09-24 01:22] VITALS: RESP 20
[2018-09-24] MEDS: Piperacill/Tazo 2.25gm in Dex 2.25 GM/50 ML BAG IVPB SCH ×3 (04:30→16:00)
[2018-09-24 07:43] VITALS: TEMP 97.8
[2018-09-24] MEDS: (Novolog) Insulin Aspart, Recombinant 100 u/ml 10 ml vial SC SCH (08:12)
[2018-09-24] MEDS: Potassium Chloride 20 mEq ER Tab PO SCH (08:12)
--- NOTE | 2018-09-24 08:13 | CP.PCM.PN ---
Subjective - Date & Time of Evaluation Date of Evaluation: 09/23/18 Time of Evaluation: 16:00 - Subjective Subjective: Podiatry Progress Note - Dr. Moralez 67M seen and evaluated for left foot ischemia. Patient resting comfortably, NAD. No new lower extremity complaints. Denies n/f/d/c/sob/valenzuela/cp. Objective - Vital Signs/Intake and Output Vital Signs (last 24 hours): Temp Pulse Resp BP Pulse Ox 97.8 F 68 20 154/65 H 100 09/24/18 07:40 09/24/18 07:40 09/24/18 07:40 09/24/18 07:40 09/24/18 07:40 Intake and Output: 09/24/18 09/24/18 06:59 18:59 Intake Total 450 170 Balance 450 170 - Medications Medications: Current Medications Acetaminophen (Tylenol 325mg Tab) 650 mg PO Q6 PRN PRN Reason: Fever >100.4 F Last Admin: 09/24/18 00:56 Dose: 650 mg Albuterol/Ipratropium (Duoneb 3 Mg/0.5 Mg (3 Ml) Ud) 3 ml INH RQ4 [facility] Last Admin: 09/24/18 04:16 Dose: Not Given Amlodipine Besylate (Norvasc) 10 mg PO DAILY [facility] Last Admin: 09/23/18 09:16 Dose: 10 mg Carvedilol (Coreg) 12.5 mg PO BID [facility] Last Admin: 09/23/18 17:38 Dose: 12.5 mg Clopidogrel Bisulfate (Plavix) 75 mg PO DAILY [facility] Last Admin: 09/23/18 09:16 Dose: 75 mg Folic Acid (Folic Acid) 1 mg PO DAILY [facility] Last Admin: 09/23/18 09:16 Dose: 1 mg Furosemide (Lasix) 40 mg PO DAILY [facility] Heparin Sodium (Porcine) (Heparin) 5,000 units SC Q12 [facility] Last Admin: 09/23/18 21:44 Dose: 5,000 units Piperacillin Sod/Tazobactam Sod (Zosyn 2.25 Gm Iv Premix) 2.25 gm in 50 mls @ 100 mls/hr IVPB Q6H [facility]; Protocol Last Admin: 09/24/18 04:30 Dose: 100 mls/hr Insulin Aspart (Novolog) 0 unit SC ACHS [facility]; Protocol Last Admin: 09/23/18 21:45 Dose: Not Given Insulin Glargine (Lantus) 35 unit SC HS [facility] Last Admin: 09/23/18 21:44 Dose: Not Given Ondansetron HCl (Zofran Tab) 4 mg PO Q8H PRN PRN Reason: Nausea/Vomiting Pantoprazole Sodium (Protonix Ec Tab) 40 mg PO DAILY [facility] Last Admin: 09/23/18 09:16 Dose: 40 mg Potassium Chloride (K-Dur 20 Meq Er Tab) 40 meq PO BRK [facility] Last Admin: 09/23/18 07:36 Dose: 40 meq Pregabalin (Lyrica) 50 mg PO BID [facility] Last Admin: 09/23/18 17:39 Dose: 50 mg Rosuvastatin Calcium (Crestor) 5 mg PO HS [facility] Last Admin: 09/23/18 21:42 Dose: 5 mg - Labs Labs: 09/22/18 14:03 09/22/18 14:03 PT 11.9 SECONDS (9.7-12.2) 09/16/18 11:36 INR 1.1 09/16/18 11:36 APTT 35 SECONDS (21-34) H 09/16/18 11:36 - Extremities Exam Additional comments: R BKA LLE focused: VASC: DP and PT pulses nonpalpable. CFT unable to assess. Temperature gradient warm to cool. Edema noted to digits. NEURO: Protective sensation absent. DERM: Ischemia/gangrenous changes noted to distal aspects of digits(1-4), superficial wound noted to medial aspect of hallucal tuft, no drainage, no purulence, no fluctuance, no malodor boggy 3rd digit with demarcation of gangrene noted on dorsal aspect of third digit, all digits dry otherwise ORTHO: No pain on palpation present - Neurological Exam Neurological Exam: Alert, Awake, Oriented x3 - Psychiatric Exam Psychiatric exam: Normal Affect, Normal Mood Assessment and Plan - Assessment and Plan (Free Text) Assessment: 67M with left foot ischemia 2/2 PVD, s/p angioplasty Plan: Patient seen and evaluated Discussed with attending, Dr. 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 Podiatry will continue to follow
[2018-09-24] MEDS: Pantoprazole 40 mg EC Tab PO SCH (10:24)
--- NOTE | 2018-09-24 10:45 | CP.PCM.PN ---
Subjective - Date & Time of Evaluation Date of Evaluation: 09/24/18 Time of Evaluation: 10:45 - Subjective Subjective: Podiatry Progress Note - Dr. Moralez 67M seen and evaluated for left foot ischemia/gangrene. NAD. No acute events overnight. No new lower extremity complaints. Denies n/f/d/c/sob/valenzuela/cp. For discharge today - patient aware he is to follow up with Dr. Moralez in office within 1 week of d/c. Objective - Vital Signs/Intake and Output Vital Signs (last 24 hours): Temp Pulse Resp BP Pulse Ox 97.8 F 68 20 154/65 H 100 09/24/18 07:40 09/24/18 07:40 09/24/18 07:40 09/24/18 10:24 09/24/18 07:40 Intake and Output: 09/24/18 09/24/18 06:59 18:59 Intake Total 450 170 Balance 450 170 - Medications Medications: Current Medications Acetaminophen (Tylenol 325mg Tab) 650 mg PO Q6 PRN PRN Reason: Fever >100.4 F Last Admin: 09/24/18 00:56 Dose: 650 mg Albuterol/Ipratropium (Duoneb 3 Mg/0.5 Mg (3 Ml) Ud) 3 ml INH RQ4 [facility] Last Admin: 09/24/18 07:45 Dose: 3 ml Amlodipine Besylate (Norvasc) 10 mg PO DAILY [facility] Last Admin: 09/24/18 10:24 Dose: 10 mg Carvedilol (Coreg) 12.5 mg PO BID [facility] Last Admin: 09/24/18 10:24 Dose: 12.5 mg Clopidogrel Bisulfate (Plavix) 75 mg PO DAILY [facility] Last Admin: 09/24/18 10:24 Dose: 75 mg Folic Acid (Folic Acid) 1 mg PO DAILY [facility] Last Admin: 09/24/18 10:23 Dose: 1 mg Furosemide (Lasix) 40 mg PO DAILY [facility] Last Admin: 09/24/18 10:23 Dose: 40 mg Heparin Sodium (Porcine) (Heparin) 5,000 units SC Q12 [facility] Last Admin: 09/24/18 10:25 Dose: 5,000 units Piperacillin Sod/Tazobactam Sod (Zosyn 2.25 Gm Iv Premix) 2.25 gm in 50 mls @ 100 mls/hr IVPB Q6H [facility]; Protocol Last Admin: 09/24/18 10:26 Dose: 100 mls/hr Insulin Aspart (Novolog) 0 unit SC ACHS [facility]; Protocol Last Admin: 09/24/18 08:12 Dose: 8 units Insulin Glargine (Lantus) 35 unit SC HS [facility] Last Admin: 09/23/18 21:44 Dose: Not Given Ondansetron HCl (Zofran Tab) 4 mg PO Q8H PRN PRN Reason: Nausea/Vomiting Pantoprazole Sodium (Protonix Ec Tab) 40 mg PO DAILY [facility] Last Admin: 09/24/18 10:24 Dose: 40 mg Potassium Chloride (K-Dur 20 Meq Er Tab) 40 meq PO BRK [facility] Last Admin: 09/24/18 08:12 Dose: 40 meq Pregabalin (Lyrica) 50 mg PO BID [facility] Last Admin: 09/24/18 10:23 Dose: 50 mg Rosuvastatin Calcium (Crestor) 5 mg PO HS [facility] Last Admin: 09/23/18 21:42 Dose: 5 mg - Labs Labs: 09/22/18 14:03 09/22/18 14:03 PT 11.9 SECONDS (9.7-12.2) 09/16/18 11:36 INR 1.1 09/16/18 11:36 APTT 35 SECONDS (21-34) H 09/16/18 11:36 - Constitutional Appears: Non-toxic, No Acute Distress - Extremities Exam Additional comments: R BKA LLE focused: VASC: DP and PT pulses nonpalpable. CFT unable to assess. Temperature gradient warm to cool. Edema noted to digits. NEURO: Protective sensation absent. DERM: Ischemia/gangrenous changes noted to distal aspects of digits(1-4), superficial wound noted to medial aspect of hallucal tuft, no drainage, no purulence, no fluctuance, no malodor boggy 3rd digit with demarcation of gangrene noted on dorsal aspect of third digit, all digits dry otherwise ORTHO: No pain on palpation present - Neurological Exam Neurological Exam: Alert, Awake, Oriented x3 - Psychiatric Exam Psychiatric exam: Normal Affect, Normal Mood Assessment and Plan - Assessment and Plan (Free Text) Assessment: 67M with left foot ischemia 2/2 PVD, s/p angioplasty Plan: Patient seen and evaluated Discussed with attending, Dr. Moralez Tmax 101.0 - will continue to monitor Left foot, tibfib XR: advanced atherosclerotic vascular calcifications Vascular following - patient s/p angioplasty; balloon angioplasty of distal sfa/popliteal ID recommending d/c home on 5-7 days of Keflex PO -Per medicine, patient will be d/c on 7 days of Zosyn IV Podiatry will continue to follow
[2018-09-24 11:15] LABS: BASO % 0.7 % (0.0-2.0); EOS # 0.2 K/uL (0.0-0.7); EOS % 4.4 % (0.0-4.0); HEMOGLOBIN 9.2 g/dL (12.0-18.0); LYMPH # 1.1 K/uL (1.0-4.3); LYMPH % 27.4 % (20.0-40.0); MEAN CELL VOLUME 84.7 fL (80.0-94.0); MEAN CORPUSCULAR HEMOGLOBIN 28.1 pg (27.0-31.0); MEAN CORPUSCULAR HGB CONC 33.2 g/dL (33.0-37.0); MEAN PLATELET VOLUME 11.2 fL (7.2-11.7); MONO # 0.5 K/uL (0.0-0.8); MONO % 13.5 % (0.0-10.0); NEUT # 2.2 K/uL (1.8-7.0); NRBC % 0.1 % (0.0-2.0); RBC 3.29 Mil/uL (4.40-5.90); RED CELL DISTRIBUTION WIDTH 15.3 % (11.5-14.5)
[2018-09-24 11:44] LABS: CALCIUM 7.8 mg/dl (8.6-10.4)
[2018-09-24] MEDS ORDERED: (Novolog) Insulin Aspart, Recombinant 100 u/ml 10 ml vial SC ONE (12:20)
--- NOTE | 2018-09-24 12:50 | PCM.HF ---
Heart Failure Core Measure Beta-Taj Prescribed: Carvedilol Angiotensin II Receptor Taj Prescribed: Yes Hydralazine Nitrate Prescribed: Yes
[2018-09-24] MEDS ORDERED: (Novolog) Insulin Aspart, Recombinant 100 u/ml 10 ml vial SC SCH (16:30)
[2018-09-24 16:51] VITALS: PULSE 67; O2SAT 97
[2018-09-24 17:13] VITALS: BP 132/78
--- NOTE | 2018-09-24 17:39 | CP.PCM.PN ---
Subjective - Date & Time of Evaluation Date of Evaluation: 09/24/18 Time of Evaluation: 17:39 - Subjective Subjective: alert, orientedx3, no acute pain or distress. Objective - Vital Signs/Intake and Output Vital Signs (last 24 hours): Temp Pulse Resp BP Pulse Ox 97.8 F 67 20 132/78 97 09/24/18 16:00 09/24/18 16:00 09/24/18 16:00 09/24/18 17:11 09/24/18 16:00 Intake and Output: 09/24/18 09/24/18 06:59 18:59 Intake Total 450 620 Balance 450 620 - Medications Medications: Current Medications Acetaminophen (Tylenol 325mg Tab) 650 mg PO Q6 PRN PRN Reason: Fever >100.4 F Last Admin: 09/24/18 00:56 Dose: 650 mg Albuterol/Ipratropium (Duoneb 3 Mg/0.5 Mg (3 Ml) Ud) 3 ml INH RQ4 [facility] Last Admin: 09/24/18 11:40 Dose: 3 ml Amlodipine Besylate (Norvasc) 10 mg PO DAILY [facility] Last Admin: 09/24/18 10:24 Dose: 10 mg Carvedilol (Coreg) 12.5 mg PO BID [facility] Last Admin: 09/24/18 17:11 Dose: 12.5 mg Clopidogrel Bisulfate (Plavix) 75 mg PO DAILY [facility] Last Admin: 09/24/18 10:24 Dose: 75 mg Folic Acid (Folic Acid) 1 mg PO DAILY [facility] Last Admin: 09/24/18 10:23 Dose: 1 mg Furosemide (Lasix) 40 mg PO DAILY [facility] Last Admin: 09/24/18 10:23 Dose: 40 mg Heparin Sodium (Porcine) (Heparin) 5,000 units SC Q12 [facility] Last Admin: 09/24/18 10:25 Dose: 5,000 units Piperacillin Sod/Tazobactam Sod (Zosyn 2.25 Gm Iv Premix) 2.25 gm in 50 mls @ 100 mls/hr IVPB Q6H [facility]; Protocol Last Admin: 09/24/18 16:00 Dose: 100 mls/hr Insulin Aspart (Novolog) 0 unit SC ACHS [facility]; Protocol Last Admin: 09/24/18 17:13 Dose: Not Given Insulin Glargine (Lantus) 35 unit SC HS [facility] Last Admin: 02/26/19 21:44 Dose: Not Given Ondansetron HCl (Zofran Tab) 4 mg PO Q8H PRN PRN Reason: Nausea/Vomiting Pantoprazole Sodium (Protonix Ec Tab) 40 mg PO DAILY [facility] Last Admin: 09/24/18 10:24 Dose: 40 mg Potassium Chloride (K-Dur 20 Meq Er Tab) 40 meq PO BRK [facility] Last Admin: 09/24/18 08:12 Dose: 40 meq Pregabalin (Lyrica) 50 mg PO BID [facility] Last Admin: 09/24/18 17:11 Dose: 50 mg Rosuvastatin Calcium (Crestor) 5 mg PO HS [facility] Last Admin: 09/23/18 21:42 Dose: 5 mg - Labs Labs: 09/24/18 11:07 09/24/18 11:07 PT 11.9 SECONDS (9.7-12.2) 09/16/18 11:36 INR 1.1 09/16/18 11:36 APTT 35 SECONDS (21-34) H 09/16/18 11:36 Assessment and Plan - Assessment and Plan (Free Text) Assessment: Patient admitted with diabetic foot ulcer, seen and examined. Alert and orientedx3, ambulates with prosthesis on right leg. Discussed with DR Mae Montana, plan to discharge home today on home infusion zosyn for 7 days via midline placed yesterday. advised to follow up with DR Moralez podiatry in 1 week home care[facility] / home PT arranged. To follow up with DR Hyatt cardiology in 1 week Advised to f/u with PMD in 1 week
== END 2018-09-24 17:54 | disposition home or self-care (01) | DRG 252 ==
LOC: C.ER 09:03 → C.3T 11:26
PROVIDERS: ADMIT Internal Medicine Nephrology; ATTEND Internal Medicine Nephrology
PROC: 047L3ZZ Dilation of Left Femoral Artery, Percutaneous Approach (ICD-10-PCS; principal; 2018-09-18)
PROC: 047N3ZZ Dilation of Left Popliteal Artery, Percutaneous Approach (ICD-10-PCS; 2018-09-18)
PROC: B44GZZ3 Ultrasonography of Left Lower Extremity Arteries, Intravascular (ICD-10-PCS; 2018-09-18)
DX: E11.52 Type 2 diabetes mellitus with diabetic peripheral angiopathy with gangrene (principal); E11.621 Type 2 diabetes mellitus with foot ulcer; L97.529 Non-pressure chronic ulcer of other part of left foot with unspecified severity; L97.429 Non-pressure chronic ulcer of left heel and midfoot with unspecified severity; I50.31 Acute diastolic (congestive) heart failure; I13.0 Hypertensive heart and chronic kidney disease with heart failure and stage 1 through stage 4 chronic kidney disease, or unspecified chronic kidney disease; E11.22 Type 2 diabetes mellitus with diabetic chronic kidney disease; E11.65 Type 2 diabetes mellitus with hyperglycemia; N18.9 Chronic kidney disease, unspecified; I25.10 Atherosclerotic heart disease of native coronary artery without angina pectoris; J44.9 Chronic obstructive pulmonary disease, unspecified; E78.00 Pure hypercholesterolemia, unspecified; H91.91 Unspecified hearing loss, right ear; H54.61 Unqualified visual loss, right eye, normal vision left eye; K21.9 Gastro-esophageal reflux disease without esophagitis; Z95.5 Presence of coronary angioplasty implant and graft; Z95.1 Presence of aortocoronary bypass graft; Z79.4 Long term (current) use of insulin; Z87.891 Personal history of nicotine dependence; Z89.511 Acquired absence of right leg below knee; Z86.73 Personal history of transient ischemic attack (TIA), and cerebral infarction without residual deficits